=== PATIENT | male | born 1955 | race Two or more races ===

== ENCOUNTER → 2020-04-12 | Outpatient (CLI) | payer MEDICAID ==
[2020-04-12 14:30] LABS: Urine WBC None Seen /hpf (0 - 3)
[2020-04-12 15:50] LABS: Basophils # (auto) 0 10 ^3/uL (0-0.2); Basophils % (auto) 0.5 % (0.0-2.0); Eosinophils # (auto) 0.2 10 ^3/uL (0-0.8); Hematocrit 46.4 % (41.0-53.0); Hemoglobin 15.6 g/dL (13.5-17.5); Lymphocytes # (auto) 1.3 10 ^3/uL (0.4-5.4); Lymphocytes % (auto) 23.1 % (10.0-50.0); Mean Corpuscular Hemoglobin 31.3 pg (28.0-32.0); Mean Corpuscular Hgb Conc. 33.6 g/dL (32.0-36.0); Mean Corpuscular Volume 93.2 fL (80.0-100.0); Monocytes # (auto) 0.7 10 ^3/uL (0-1.3); Monocytes % (auto) 11.9 % (0.0-12.0); Neutrophils # (auto) 3.4 10 ^3/uL (1.6-8.6); Neutrophils % (auto) 61.5 % (37.0-80.0); Nucleated Red Blood Cells % 0.1 %; Platelet Count (auto) 164 10^3/uL (140-450); Red Blood Cells 4.98 10^6/uL (4.5-5.90); Red Cell Distribution Width 14.3 % (11.8-14.3); White Blood Cell 5.5 10^3/uL (4.4-10.8)
[2020-04-12 15:57] LABS: Albumin 3.6 g/dL (3.4-5.0); Calcium 9.2 mg/dL (8.5-10.1); Potassium 3.2 mmol/L (3.5-5.1)
[2020-04-12 16:01] LABS: BUN/Creatinine Ratio 4.7; Bilirubin, Total 0.4 mg/dL (0.2-1.0); Total Protein 7.6 g/dL (6.4-8.2)
[2020-04-12 16:08] LABS: Folate (Folic Acid) 8.65 ng/mL (5.38-24); Prostate Specific Antigen 0.56 ng/mL (0.0-4.0)
[2020-04-12 16:37] LABS: Urine Bacteria NONE SEEN /hpf (None Seen); Urine Blood Negative /uL (Negative); Urine Specific Gravity 1.007 (1.001-1.035)
== END | disposition home or self-care (01) ==
LOC: LAB 14:13
PROVIDERS: ATTEND Internal Medicine
DX: Z12.5 Encounter for screening for malignant neoplasm of prostate (principal); I10 Essential (primary) hypertension; E11.9 Type 2 diabetes mellitus without complications; E78.5 Hyperlipidemia, unspecified
CPT/HCPCS: 36415; 80053; 80061; 81001; 82607; 82746; 83036; 84153; 84443; 85025

== ENCOUNTER 2020-06-03 15:05 | Emergency (ER) | payer MEDICAID ==
[~2020-06-03] VITALS: Ht 167.6 cm; Wt 83.9 kg
[2020-06-03 15:44] LABS: Basophils # (auto) 0 10 ^3/uL (0-0.2); Basophils % (auto) 0.3 % (0.0-2.0); Eosinophils # (auto) 0.2 10 ^3/uL (0-0.8); Eosinophils % (auto) 1.9 % (0.0-7.0); Hematocrit 40.8 % (41.0-53.0); Hemoglobin 14.2 g/dL (13.5-17.5); Lymphocytes # (auto) 1.9 10 ^3/uL (0.4-5.4); Lymphocytes % (auto) 17.6 % (10.0-50.0); Mean Corpuscular Hemoglobin 32.1 pg (28.0-32.0); Mean Corpuscular Hgb Conc. 34.8 g/dL (32.0-36.0); Mean Corpuscular Volume 92.3 fL (80.0-100.0); Monocytes # (auto) 0.8 10 ^3/uL (0-1.3); Monocytes % (auto) 7.2 % (0.0-12.0); Neutrophils # (auto) 7.8 10 ^3/uL (1.6-8.6); Platelet Count (auto) 200 10^3/uL (140-450); Red Blood Cells 4.42 10^6/uL (4.5-5.90); Red Cell Distribution Width 14.7 % (11.8-14.3); White Blood Cell 10.7 10^3/uL (4.4-10.8)
[2020-06-03 16:01] LABS: Albumin 3.9 g/dL (3.4-5.0); Calcium 8.8 mg/dL (8.5-10.1)
[2020-06-03 16:04] LABS: BUN/Creatinine Ratio 10.4; Bilirubin, Total 0.6 mg/dL (0.2-1.0); Total Protein 7.5 g/dL (6.4-8.2)
[2020-06-03 16:15] LABS: Potassium 2.9 mmol/L (3.5-5.1)
[2020-06-03] MEDS ORDERED: POTASSIUM EFFERVESENT TAB 25 MEQ PO ONE (16:15)
[2020-06-03 17:48] VITALS: BP 132/78
[2020-06-03] MEDS ORDERED: IBUPROFEN 800 MG TAB PO ONE (18:00)
== END 2020-06-03 17:34 | disposition left against medical advice (07) ==
LOC: ER 15:05
DX: M25.562 Pain in left knee (principal); M25.561 Pain in right knee; M51.37 Other intervertebral disc degeneration, lumbosacral region; E87.6 Hypokalemia; I10 Essential (primary) hypertension; Z88.6 Allergy status to analgesic agent
CPT/HCPCS: 36415; 80053; 85025

== ENCOUNTER 2020-06-27 18:27 | Inpatient (IN) | payer MEDICAID ==
[~2020-06-27] VITALS: Ht 167.6 cm; Wt 79.9 kg
[2020-06-27] MEDS ORDERED: SODIUM CHLORIDE 0.9% 500 ML IV ONE (19:45)
[2020-06-27] MEDS ORDERED: CLINDAMYCIN 600MG IV 50 ML IV ONE (19:45)
[2020-06-27 21:13] LABS: Basophils # (auto) 0 10 ^3/uL (0-0.2); Basophils % (auto) 0.4 % (0.0-2.0); Eosinophils # (auto) 0.1 10 ^3/uL (0-0.8); Eosinophils % (auto) 1.1 % (0.0-7.0); Hematocrit 42.8 % (41.0-53.0); Hemoglobin 14.8 g/dL (13.5-17.5); Lymphocytes # (auto) 2.3 10 ^3/uL (0.4-5.4); Lymphocytes % (auto) 17.9 % (10.0-50.0); Mean Corpuscular Hemoglobin 31.9 pg (28.0-32.0); Mean Corpuscular Hgb Conc. 34.5 g/dL (32.0-36.0); Mean Corpuscular Volume 92.5 fL (80.0-100.0); Monocytes # (auto) 0.8 10 ^3/uL (0-1.3); Monocytes % (auto) 6.7 % (0.0-12.0); Neutrophils # (auto) 9.4 10 ^3/uL (1.6-8.6); Neutrophils % (auto) 73.9 % (37.0-80.0); Platelet Count (auto) 285 10^3/uL (140-450); Red Blood Cells 4.62 10^6/uL (4.5-5.90); Red Cell Distribution Width 14.7 % (11.8-14.3); White Blood Cell 12.6 10^3/uL (4.4-10.8)
[2020-06-27 21:36] LABS: Albumin 4.1 g/dL (3.4-5.0); Potassium 3.5 mmol/L (3.5-5.1)
[2020-06-27 21:38] LABS: Bilirubin, Total 0.6 mg/dL (0.2-1.0); Total Protein 7.8 g/dL (6.4-8.2)
[2020-06-28] MEDS ORDERED: DOCUSATE SOD 100 MG CAP PO PRN (00:30)
[2020-06-28] MEDS ORDERED: ACETAMINOPHEN 325 MG TAB PO PRN (00:30)
[2020-06-28] MEDS ORDERED: ONDANSETRON HCL 4 MG/2 ML VIAL IV PRN (00:30)
[2020-06-28] MEDS ORDERED: NITROGLYCERIN 0.4 MG SL TAB SL PRN (00:30)
[2020-06-28] MEDS ORDERED: MORPHINE SULF INJ 2 MG/ML SYRINGE 1ML IV PRN (00:30)
[2020-06-28] MEDS ORDERED: SODIUM CHLORIDE 0.9% 1,000 ML IV ONE (00:45)
[2020-06-28] MEDS ORDERED: DEXTROSE (50%) 50ML SYRG IV PRN (00:45)
[2020-06-28] MEDS ORDERED: ALBUTEROL SULF 2.5 MG/0.5ML(0.5%) NEB SOLN NEB PRN (00:45)
[2020-06-28] MEDS: HYDROcodone-ACET 5/325MG TAB PO PRN ×3 (01:48→13:33)
[2020-06-28 05:00] VITALS: BP 147/84
--- NOTE | 2020-06-28 05:25 | NUR ---
MS admit from [facility] admitted to tele/MS after SBAR received. Patient oriented to Kelby Larose, primary RN, unit, room, bed, and unit policies regarding patient care and visiting hours. Patient weighed by bedscale and encouraged to call if they need something. All questions and concerns addressed, patient verbalized understanding. Note:
--- NOTE | 2020-06-28 05:26 | NUR ---
WOUND PICTURE TAKEN
[2020-06-28] MEDS: SODIUM CHLOR 0.9% PF (SALINE LOCK) 10ML VIAL/SYR IV SCH ×2 (05:56→14:43)
[2020-06-28] MEDS: ceFAZolin 1GM/50ML 50 ML IV SCH ×2 (05:56→14:43)
[2020-06-28] MEDS ORDERED: CEFAZOLIN IV SCH (06:00)
[2020-06-28] MEDS ORDERED: [UNRECOGNIZED DRUG - OTHER] IV SCH (06:00)
--- NOTE | 2020-06-28 06:00 | NUR ---
PATIENT WALKED TO BATHROOM WITH CRUTCHES WITH ASSIST, HAD BM. NO S/S OF DISTRESS NOTED. CONTINUE TO MONITOR.
[2020-06-28] MEDS ORDERED: POM PO (06:15)
[2020-06-28] MEDS ORDERED: ROPI6TAB PO (06:15)
[2020-06-28] MEDS ORDERED: METF-370 PO (06:15)
[2020-06-28] MEDS ORDERED: GABA100C9 PO (06:15)
[2020-06-28] MEDS ORDERED: ATOR80TA PO (06:15)
[2020-06-28] MEDS ORDERED: [UNRECOGNIZED DRUG - CODE] PO (06:15)
[2020-06-28] MEDS ORDERED: LISI-646 PO (06:15)
[2020-06-28] MEDS ORDERED: TRAZ50TA2 PO (06:15)
[2020-06-28] MEDS ORDERED: OMEP20TA PO (06:15)
[2020-06-28] MEDS ORDERED: TRAZ-181 PO (06:15)
[2020-06-28] MEDS ORDERED: GINK60CA PO (06:15)
[2020-06-28] MEDS: ACCU-CHEK COMFORT CURVE STRIP VI SCH ×3 (06:15→17:04)
[2020-06-28] MEDS ORDERED: BUSP30TA11 PO (06:15)
[2020-06-28] MEDS ORDERED: DULO20CA PO (06:15)
[2020-06-28] MEDS ORDERED: TIOTCAP IN (06:15)
[2020-06-28] MEDS ORDERED: VALE250C2 PO (06:15)
[2020-06-28] MEDS: InsuLIN REG 1unit/0.01ml Soln (100units/ml) SC SCH ×3 (06:15→17:00)
--- NOTE | 2020-06-28 06:16 | NUR ---
ACCU-CHECK, BS 117. NO COVERAGE. CONTINUE TO MONITOR.
[2020-06-28 09:00] VITALS: BP 137/64
[2020-06-28] MEDS ORDERED: ENOXAPARIN SOD 40 MG/0.4 ML SYRINGE SC SCH (10:00)
[2020-06-28] MEDS ORDERED: FAMOTIDINE 20 MG TAB PO SCH (10:00)
[2020-06-28] MEDS ORDERED: MULTIPLE VITAMIN TAB PO SCH (10:00)
[2020-06-28] MEDS ORDERED: ZINC SULFATE 220mg CAP or TAB PO SCH (10:00)
[2020-06-28] MEDS ORDERED: DULoxetine HCL 30 MG CAP PO SCH (10:00)
[2020-06-28] MEDS ORDERED: ASCORBIC ACID 500 MG TAB PO SCH (10:00)
[2020-06-28 12:10] LABS: Basophils # (auto) 0 10 ^3/uL (0-0.2); Basophils % (auto) 0.4 % (0.0-2.0); Eosinophils # (auto) 0.1 10 ^3/uL (0-0.8); Eosinophils % (auto) 1.2 % (0.0-7.0); Hematocrit 39.9 % (41.0-53.0); Hemoglobin 13.7 g/dL (13.5-17.5); Lymphocytes # (auto) 1.7 10 ^3/uL (0.4-5.4); Lymphocytes % (auto) 15.7 % (10.0-50.0); Mean Corpuscular Hemoglobin 31.9 pg (28.0-32.0); Mean Corpuscular Hgb Conc. 34.3 g/dL (32.0-36.0); Mean Corpuscular Volume 92.8 fL (80.0-100.0); Monocytes # (auto) 0.7 10 ^3/uL (0-1.3); Monocytes % (auto) 6.8 % (0.0-12.0); Neutrophils # (auto) 8.4 10 ^3/uL (1.6-8.6); Neutrophils % (auto) 75.9 % (37.0-80.0); Nucleated Red Blood Cells % 0.2 %; Platelet Count (auto) 253 10^3/uL (140-450)
--- NOTE | 2020-06-28 12:20 | NUR ---
WOUND CARE NOTE: Wound care in to see patient per wound care request regarding Lt heel wound that are noted on admission. Bedside nurse took photograph of patient's wound upon admission for reference. Patient is 65 years old male with admitting diagnosis of Lt. Foot Cellulitis. Patient is resting in bed in Rm. 297A. He's awake, alert and oriented and oriented. He's in no stated pain at this time however,patient reported that his L foot is painful to touch. Patient ambulates with crutches to avoid pressure on L foot/ankle. Patient is self turning and repositioning and his Stephen score is 18. Patient is seen by Dr. Howard. Patient's L posterior heel/ankle area has 1x3x0.5cm open wound. Wound is dark red/black with black and red edematous periwound, minimal serous drainage noted, no odor noted. Patient reported that a rock fell on his foot, started edema and erythema. Patient denies Diabetes but reported that per MD he is pre-Diabetic. Cleansed L posterior heel/ankle wound with wound cleanser,patted dry with gauze, applied Hydrogel, covered with oil emulsion dressing, padded with layers of 4x4's gauze, wrapped with Kerlix and secured with tape per Dr. Howard's order. Per Dr. Howard he wants to check circulation first and possible wound debridement to his clinic as outpatient depends of result of vascular study. Patient tolerated well, no other wound noted. Bed in low position, call jennings on hand, all safety precautions in placed. No further wound care monitoring needed at this time. RECOMMENDATION: Nursing to continue Daily/PRN dressing change to Lt posterior heel/ankle wound per MD order, redistribute pressure points with pillows, elevate affected extremity on pillows. Addendum: 06/28/20 at 1600 by Haley Fernandez RN Amended: Links added.
[2020-06-28 12:44] LABS: Albumin 3.4 g/dL (3.4-5.0); BUN/Creatinine Ratio 12.5; Calcium 8.6 mg/dL (8.5-10.1); Potassium 3.8 mmol/L (3.5-5.1)
[2020-06-28 12:47] LABS: Bilirubin, Total 0.5 mg/dL (0.2-1.0); Total Protein 6.9 g/dL (6.4-8.2)
[2020-06-28 13:00] VITALS: BP 155/83
--- NOTE | 2020-06-28 15:45 | NUR ---
MD Brandin HAGAN AT BEDSIDE TO DISCUSS POC WITH PATIENT. KATELYNN KEATING ASSISTED WITH TRANSLATION AND THE PATIENT VERBALIZED UNDERSTANDING ABOUT THE PLAN AND AGREED TO TRANSFER TO [facility], HE HAS NO FURTHER QUESTIONS FOR MD AT THIS TIME. HOME MEDICATIONS WERE DISCUSSED, AND CONTINUED.
[2020-06-28] MEDS ORDERED: NICOTINE 14 MG/24HR TOPICAL PATCH TD SCH (16:00)
[2020-06-28] MEDS ORDERED: ROPINIROLE HYDROCHLORIDE 2 MG PO SCH (16:09)
--- NOTE | 2020-06-28 16:27 | NUR ---
Transfer order faxed to [facility].
--- NOTE | 2020-06-28 16:33 | NUR ---
I called [facility] Shredder Operator Courtney Li and left message asking for authorization to transfer patient to [facility] and authorization for transportation.
--- NOTE | 2020-06-28 16:47 | NUR ---
ASSESSMENT: SS consult for unsafe living conditions, board home residence The patient is a 72-year-old female, who is alert but appears to struggle with mental illness. Patient cognitive abilities are not intact. Prior to admission patient was living at a room and board facility. Patient will return to [facility] post discharge. Per Andie patient will return to previous living arrangement post discharge. Patient is ambulatory without walking devices. Patient stated that she feels unsafe at [facility] where patient resides. Per patient daughter Andie, states that her mother frequently move from facility to facility per month due to her mental illness. Patient stated that her daughter Andie is her support system. Discharge Planning: will provide resources for room and board to patient. Patient will resume residence at [facility] post discharge. Addendum: 06/28/20 at 1647 by SUKHJINDER DENT Amended: Links added.
[2020-06-28 16:54] VITALS: BP 165/90
--- NOTE | 2020-06-28 16:56 | NUR ---
Patient will be going to [facility] room 270A, nurse to call report to [phone] extension [phone], Dr. Mccauley is accepting. [facility] authorization number for [facility] is [id number]. I called [facility] and spoke with Soo-provided them with [facility] authorization number [id number] up time set for 1929-patient's primary nurse made aware.
--- NOTE | 2020-06-28 19:02 | NUR ---
Respiratory note: PT RECIEVED ON RA. PT AWAKE AND ALERT. NO RESP DISTRESS NOTED. SPO2 97%, HR 72, RR 18, BS CLEAR T/O. NO PRN TX INDICATED AT THIS TIME. PT AWARE TO CALL FOR PRN TX IF SOB/WHEEZING.
--- NOTE | 2020-06-28 19:32 | NUR ---
[facility] RN RECEIVED REPORT. [facility] PERSONNEL PROVIDED WITH PATIENT TRANSFER PACKET AND DISCHARGE PAPERWORK. PATIENT SIGNED FOR HIS BELONGING LIST WHICH WAS PACKED FOR HIM ALONG WITH HIS MEDICATION FOR WHICH HE SIGNED THE RETURN FORM.
[2020-06-28] MEDS ORDERED: ATORVASTATIN 20 MG TAB PO SCH (22:00)
[2020-06-28] MEDS ORDERED: busPIRone HCL 10 MG TAB PO SCH (22:00)
[2020-06-28] MEDS ORDERED: GABAPENTIN 100 MG CAP PO SCH (22:00)
[2020-06-29] MEDS ORDERED: PANTOPRAZOLE 40 MG TAB PO SCH (10:00)
[2020-06-29] MEDS ORDERED: LISINOPRIL 20 MG TAB PO SCH (10:00)
== END 2020-06-28 17:46 | disposition short-term general hospital (02) | DRG 197 ==
LOC: ER 18:27 → OVERFLOW 18:28 → WEST WING 06-28 04:55
PROVIDERS: ADMIT Nurse Practitioner Family; ATTEND Hospitalist
DX: E11.51 Type 2 diabetes mellitus with diabetic peripheral angiopathy without gangrene (principal); L03.116 Cellulitis of left lower limb; E11.621 Type 2 diabetes mellitus with foot ulcer; E78.5 Hyperlipidemia, unspecified; F17.210 Nicotine dependence, cigarettes, uncomplicated; F41.9 Anxiety disorder, unspecified; F32.9 Major depressive disorder, single episode, unspecified; G25.81 Restless legs syndrome; I10 Essential (primary) hypertension; L97.529 Non-pressure chronic ulcer of other part of left foot with unspecified severity; M20.40 Other hammer toe(s) (acquired), unspecified foot; Z82.49 Family history of ischemic heart disease and other diseases of the circulatory system; Z83.3 Family history of diabetes mellitus; Z88.6 Allergy status to analgesic agent; Z79.4 Long term (current) use of insulin; R70.0 Elevated erythrocyte sedimentation rate
CPT/HCPCS: 36415; 73700; 80053; 82962; 83036; 85025; 85652; 93926; G0378; J0690; J3490

== ENCOUNTER 2021-01-15 15:54 | Emergency (ER) | payer MEDICAID ==
[~2021-01-15] VITALS: Ht 165.1 cm; Wt 83.9 kg
[~2021-01-15 15:54] MED LIST: ATOR80TA PO; BUSP30TA PO; DULO20CA PO; GABA100C9 PO; GINK60CA2 PO; LISI20TA28 PO; METF-370 PO; OMEP20TA PO; POM PO; ROPI6TAB PO; TIOTCAP IN; TRAZ-181 PO; TRAZ50TA2 PO; VALE250C2 PO; [UNRECOGNIZED DRUG - CODE] PO
[2021-01-15 16:39] VITALS: BP 181/89
[2021-01-15] MEDS ORDERED: ACETAMINOPHEN 500 MG TAB PO ONE (17:30)
== END 2021-01-15 17:44 | disposition home or self-care (01) ==
LOC: ER 15:54
DX: L97.329 Non-pressure chronic ulcer of left ankle with unspecified severity (principal); I10 Essential (primary) hypertension; E78.5 Hyperlipidemia, unspecified; Z48.01 Encounter for change or removal of surgical wound dressing
CPT/HCPCS: 73630

== ENCOUNTER 2021-01-26 01:28 | Inpatient (IN) | payer MEDICAID ==
[~2021-01-26] VITALS: Ht 167.6 cm; Wt 80.0 kg
[2021-01-26] MEDS ORDERED: SODIUM CHLORIDE 0.9% 1,000 ML IV ONE (10:30)
[2021-01-26] MEDS ORDERED: SODIUM CHLORIDE 0.9% 500 ML IV ONE (10:30)
[2021-01-26] MEDS ORDERED: cefTRIAXone 1GM/50ML D5W 50 ML IV ONE (10:30)
[2021-01-26 11:02] LABS: Basophils # (auto) 0.1 10 ^3/uL (0-0.2); Basophils % (auto) 0.6 % (0.0-2.0); Eosinophils # (auto) 0.1 10 ^3/uL (0-0.8); Eosinophils % (auto) 0.6 % (0.0-7.0); Hematocrit 40.8 % (41.0-53.0); Hemoglobin 14.1 g/dL (13.5-17.5); Lymphocytes # (auto) 1.3 10 ^3/uL (0.4-5.4); Lymphocytes % (auto) 15.3 % (10.0-50.0); Mean Corpuscular Hgb Conc. 34.6 g/dL (32.0-36.0); Mean Corpuscular Volume 92.5 fL (80.0-100.0); Monocytes # (auto) 0.4 10 ^3/uL (0-1.3); Monocytes % (auto) 4.9 % (0.0-12.0); Neutrophils # (auto) 6.9 10 ^3/uL (1.6-8.6); Neutrophils % (auto) 78.6 % (37.0-80.0); Nucleated Red Blood Cells % 0.1 %; Platelet Count (auto) 297 10^3/uL (140-450); Red Blood Cells 4.41 10^6/uL (4.5-5.90); Red Cell Distribution Width 15.7 % (11.8-14.3); White Blood Cell 8.7 10^3/uL (4.4-10.8)
[2021-01-26 11:11] LABS: Urine WBC None Seen /hpf (0 - 3)
[2021-01-26 11:17] LABS: INR 1.18 (0.9-1.15); Partial Thromboplastin Time 37.3 sec (23.0-31.2)
[2021-01-26 11:19] LABS: Albumin 3.8 g/dL (3.4-5.0); Calcium 9.2 mg/dL (8.5-10.1); Magnesium 2.4 mg/dL (1.6-2.6); Potassium 3.4 mmol/L (3.5-5.1)
[2021-01-26 11:22] LABS: BUN/Creatinine Ratio 9.5; Bilirubin, Total 0.5 mg/dL (0.2-1.0); Total Protein 7.7 g/dL (6.4-8.2)
[2021-01-26 11:50] LABS: Urine Bacteria FEW /hpf (None Seen); Urine Blood Negative /uL (Negative); Urine Specific Gravity 1.003 (1.001-1.035)
[2021-01-26] MEDS ORDERED: MORPHINE SULF INJ 2 MG/ML SYRINGE 1ML IV PRN (13:45)
[2021-01-26] MEDS ORDERED: traZODone HCL 50 MG TAB PO SCH (13:45)
[2021-01-26] MEDS ORDERED: ACETAMINOPHEN 500 MG TAB PO PRN (13:45)
[2021-01-26] MEDS ORDERED: NITROGLYCERIN 0.4 MG SL TAB SL PRN (13:45)
[2021-01-26] MEDS ORDERED: PROMETHAZINE HCL 25 MG/ML 1ML IV PRN (13:45)
[2021-01-26 16:29] VITALS: BP 124/72
[2021-01-26 16:49] VITALS: BP 124/72
[2021-01-26] MEDS: MORPHINE SULF INJ 2 MG/ML SYRINGE 1ML IV PRN (17:40)
[2021-01-26] MEDS: ATORVASTATIN 20 MG TAB PO SCH (17:51)
[2021-01-26] MEDS: PIPERACILLIN-TAZOB 3.375GM 100 ML IV SCH ×2 (17:51→23:33)
[2021-01-26 20:00] VITALS: BP 123/66
[2021-01-26] MEDS: FAMOTIDINE 20 MG TAB PO SCH (21:30)
[2021-01-26] MEDS: GABAPENTIN 300 MG CAP PO SCH (21:30)
[2021-01-26] MEDS: HYDROcodone-ACET 5/325MG TAB PO PRN (21:31)
[2021-01-26] MEDS: BUSPIRONE HCL PO SCH (21:32)
[2021-01-26 22:00] VITALS: BP 123/66
[2021-01-26] MEDS ORDERED: [UNRECOGNIZED DRUG - REMARK] PO SCH (22:00)
[2021-01-26] MEDS: SENNA 8.6 MG TAB PO SCH (22:19)
[2021-01-27 05:00] VITALS: BP 121/62
[2021-01-27] MEDS: PIPERACILLIN-TAZOB 3.375GM 100 ML IV SCH ×3 (05:45→18:00)
[2021-01-27] MEDS: LISINOPRIL 20 MG TAB PO SCH (08:28)
[2021-01-27] MEDS: DULoxetine HCL 30 MG CAP PO SCH (08:28)
[2021-01-27] MEDS: FAMOTIDINE 20 MG TAB PO SCH ×2 (08:28→22:00)
[2021-01-27 08:43] LABS: Basophils # (auto) 0 10 ^3/uL (0-0.2); Basophils % (auto) 0.4 % (0.0-2.0); Eosinophils # (auto) 0.1 10 ^3/uL (0-0.8); Eosinophils % (auto) 0.6 % (0.0-7.0); Hematocrit 39.6 % (41.0-53.0); Hemoglobin 13.7 g/dL (13.5-17.5); Lymphocytes # (auto) 1.3 10 ^3/uL (0.4-5.4); Lymphocytes % (auto) 14.9 % (10.0-50.0); Mean Corpuscular Hgb Conc. 34.5 g/dL (32.0-36.0); Mean Corpuscular Volume 92.5 fL (80.0-100.0); Monocytes # (auto) 0.7 10 ^3/uL (0-1.3); Monocytes % (auto) 7.8 % (0.0-12.0); Neutrophils # (auto) 6.4 10 ^3/uL (1.6-8.6); Neutrophils % (auto) 76.3 % (37.0-80.0); Platelet Count (auto) 283 10^3/uL (140-450); Red Blood Cells 4.28 10^6/uL (4.5-5.90); White Blood Cell 8.4 10^3/uL (4.4-10.8)
[2021-01-27 09:05] LABS: Cholesterol 158 mg/dL (< 200); HDL Cholesterol 44 mg/dL (40-59); LDL Cholesterol 97 mg/dL (< 100); Triglycerides 107 mg/dL (< 150)
[2021-01-27 09:14] VITALS: BP 125/65
[2021-01-27] MEDS ORDERED: SERT50TA19 PO (10:09)
[2021-01-27] MEDS ORDERED: PAR20T GT (10:09)
[2021-01-27] MEDS ORDERED: ACET-1156 PO (10:09)
[2021-01-27 13:00] VITALS: BP 137/69
[2021-01-27] MEDS: MORPHINE SULF INJ 2 MG/ML SYRINGE 1ML IV PRN ×2 (14:02→22:10)
[2021-01-27 16:50] VITALS: BP 112/57
[2021-01-27] MEDS: ATORVASTATIN 20 MG TAB PO SCH (18:00)
[2021-01-27 20:00] VITALS: BP 120/75
[2021-01-27 22:00] VITALS: BP 120/75
[2021-01-27] MEDS: GABAPENTIN 300 MG CAP PO SCH (22:00)
[2021-01-27] MEDS: SENNA 8.6 MG TAB PO SCH (22:00)
[2021-01-27] MEDS: BUSPIRONE HCL PO SCH (22:00)
[2021-01-28 05:00] VITALS: BP 132/78
[2021-01-28] MEDS: PIPERACILLIN-TAZOB 3.375GM 100 ML IV SCH ×4 (05:40→17:59)
[2021-01-28 08:00] VITALS: BP 156/83
[2021-01-28 09:00] VITALS: BP 156/83
[2021-01-28] MEDS: LISINOPRIL 20 MG TAB PO SCH (09:07)
[2021-01-28] MEDS: DULoxetine HCL 30 MG CAP PO SCH (09:08)
[2021-01-28] MEDS: FAMOTIDINE 20 MG TAB PO SCH ×2 (09:08→22:00)
[2021-01-28 13:00] VITALS: BP 127/70
[2021-01-28] MEDS: HYDROcodone-ACET 5/325MG TAB PO PRN ×2 (15:24→19:30)
[2021-01-28 16:52] VITALS: BP 134/79
[2021-01-28 16:57] LABS: Basophils # (auto) 0 10 ^3/uL (0-0.2); Basophils % (auto) 0.3 % (0.0-2.0); Eosinophils # (auto) 0.1 10 ^3/uL (0-0.8); Eosinophils % (auto) 1.4 % (0.0-7.0); Hematocrit 38.3 % (41.0-53.0); Hemoglobin 13.5 g/dL (13.5-17.5); Lymphocytes # (auto) 1.5 10 ^3/uL (0.4-5.4); Lymphocytes % (auto) 23.4 % (10.0-50.0); Mean Corpuscular Hemoglobin 32.4 pg (28.0-32.0); Mean Corpuscular Hgb Conc. 35.2 g/dL (32.0-36.0); Monocytes # (auto) 0.6 10 ^3/uL (0-1.3); Monocytes % (auto) 9.9 % (0.0-12.0); Neutrophils # (auto) 4.1 10 ^3/uL (1.6-8.6); Nucleated Red Blood Cells % 0.1 %; Platelet Count (auto) 296 10^3/uL (140-450); Red Blood Cells 4.17 10^6/uL (4.5-5.90); Red Cell Distribution Width 15.9 % (11.8-14.3); White Blood Cell 6.3 10^3/uL (4.4-10.8)
[2021-01-28 17:10] LABS: Albumin 3.7 g/dL (3.4-5.0); BUN/Creatinine Ratio 10.1
[2021-01-28 17:13] LABS: Bilirubin, Total 0.4 mg/dL (0.2-1.0); Total Protein 7.4 g/dL (6.4-8.2)
[2021-01-28] MEDS: ATORVASTATIN 20 MG TAB PO SCH (18:00)
[2021-01-28 21:42] VITALS: BP 154/81
[2021-01-28] MEDS: GABAPENTIN 300 MG CAP PO SCH (22:00)
[2021-01-28] MEDS: BUSPIRONE HCL PO SCH (22:00)
[2021-01-28] MEDS: MORPHINE SULF INJ 2 MG/ML SYRINGE 1ML IV PRN (22:40)
[2021-01-29] VITALS (7 sets, daily range): BP systolic 93–164; BP diastolic 56–106
[2021-01-29] MEDS: HYDROcodone-ACET 5/325MG TAB PO PRN ×2 (04:45→17:57)
[2021-01-29] MEDS: PIPERACILLIN-TAZOB 3.375GM 100 ML IV SCH ×4 (06:00→17:44)
[2021-01-29] MEDS ORDERED: ROPIVACAINE 0.5% (5MG/ML) 20ML AMPULE IJ ONE (09:38)
[2021-01-29] MEDS ORDERED: ceFAZolin 1GM/50ML 100 ML IV ONE (09:39)
[2021-01-29] MEDS ORDERED: MORPHINE SULFATE 4 MG/ML SYR/VIAL IV PRN (09:45)
[2021-01-29] MEDS ORDERED: ACCU-CHEK COMFORT CURVE STRIP VI ONE (09:45)
[2021-01-29] MEDS ORDERED: PROPOFOL 10 MG/ML 20 ML IV ONE (09:53)
[2021-01-29] MEDS ORDERED: SODIUM CHLORIDE LOCK 10 ML ONE (09:53)
[2021-01-29] MEDS ORDERED: MIDAZOLAM HCL 1MG/1ML-2 ML VIAL ONE (09:53)
[2021-01-29] MEDS ORDERED: fentaNYL CITRATE 100 MCG/2 ML VL ONE (09:53)
[2021-01-29] MEDS ORDERED: ONDANSETRON HCL 4 MG/2 ML VIAL ONE (09:53)
[2021-01-29] MEDS ORDERED: ceFAZolin 1GM VL ONE (10:45)
[2021-01-29] MEDS: HYDROmorphone HCL 2 MG/ML VL IV PRN ×2 (11:10→11:20)
[2021-01-29] MEDS: FAMOTIDINE 20 MG TAB PO SCH ×2 (11:52→22:00)
[2021-01-29] MEDS: DULoxetine HCL 30 MG CAP PO SCH (11:52)
[2021-01-29] MEDS: LISINOPRIL 20 MG TAB PO SCH (11:52)
[2021-01-29] MEDS: MORPHINE SULF INJ 2 MG/ML SYRINGE 1ML IV PRN ×2 (16:17→23:30)
[2021-01-29] MEDS: ATORVASTATIN 20 MG TAB PO SCH (17:44)
[2021-01-29] MEDS ORDERED: ERTAPENEM SOD INJ 1 GM in SODIUM CHL 0.9% 50 ML IV ONE (19:45)
[2021-01-29] MEDS: NICOTINE 21MG/24 HR TOPICAL PATCH TD SCH (20:00)
[2021-01-29] MEDS: GABAPENTIN 300 MG CAP PO SCH (22:00)
[2021-01-29] MEDS: SENNA 8.6 MG TAB PO SCH (22:00)
[2021-01-29] MEDS: BUSPIRONE HCL PO SCH (22:00)
[2021-01-30] MEDS: HYDROcodone-ACET 5/325MG TAB PO PRN ×2 (04:00→12:45)
[2021-01-30 05:00] VITALS: BP 148/86
[2021-01-30 05:33] LABS: Basophils # (auto) 0 10 ^3/uL (0-0.2); Basophils % (auto) 0.3 % (0.0-2.0); Eosinophils # (auto) 0.1 10 ^3/uL (0-0.8); Eosinophils % (auto) 1.6 % (0.0-7.0); Hematocrit 37.6 % (41.0-53.0); Lymphocytes # (auto) 1.4 10 ^3/uL (0.4-5.4); Lymphocytes % (auto) 18.6 % (10.0-50.0); Mean Corpuscular Hemoglobin 32.4 pg (28.0-32.0); Mean Corpuscular Hgb Conc. 34.7 g/dL (32.0-36.0); Mean Corpuscular Volume 93.2 fL (80.0-100.0); Monocytes # (auto) 0.5 10 ^3/uL (0-1.3); Monocytes % (auto) 6.9 % (0.0-12.0); Neutrophils # (auto) 5.4 10 ^3/uL (1.6-8.6); Neutrophils % (auto) 72.6 % (37.0-80.0); Platelet Count (auto) 278 10^3/uL (140-450); Red Blood Cells 4.03 10^6/uL (4.5-5.90); White Blood Cell 7.5 10^3/uL (4.4-10.8)
[2021-01-30 05:46] LABS: INR 1.07 (0.9-1.15); Partial Thromboplastin Time 33.6 sec (23.0-31.2)
[2021-01-30 05:57] LABS: Potassium 4.2 mmol/L (3.5-5.1)
[2021-01-30 06:03] LABS: BUN/Creatinine Ratio 8.8
[2021-01-30 08:32] VITALS: BP 122/71
[2021-01-30] MEDS ORDERED: ERTAPENEM SOD INJ 1 GM in SODIUM CHL 0.9% 50 ML IV SCH (10:00)
[2021-01-30] MEDS: FAMOTIDINE 20 MG TAB PO SCH (10:05)
[2021-01-30] MEDS: DULoxetine HCL 30 MG CAP PO SCH (10:05)
[2021-01-30] MEDS: LISINOPRIL 20 MG TAB PO SCH (10:06)
[2021-01-30] MEDS: NICOTINE 21MG/24 HR TOPICAL PATCH TD SCH (10:06)
[2021-01-30] MEDS: MORPHINE SULF INJ 2 MG/ML SYRINGE 1ML IV PRN ×2 (10:31→17:19)
[2021-01-30 10:32] VITALS: BP 122/71
[2021-01-30 12:44] VITALS: BP 131/68
[2021-01-30] MEDS: ATORVASTATIN 20 MG TAB PO SCH (18:02)
== END 2021-01-30 18:30 | disposition home health service (06) | DRG 361 ==
LOC: ER 01:28 → TELE 13:36 → WEST WING 15:23
PROVIDERS: ADMIT Hospitalist; ATTEND Hospitalist
PROC: 0LBP0ZZ Excision of Left Lower Leg Tendon, Open Approach (ICD-10-PCS; 2021-01-29)
PROC: 0HRNXK3 Replacement of Left Foot Skin with Nonautologous Tissue Substitute, Full Thickness, External Approach (ICD-10-PCS; principal; 2021-01-29 10:24)
PROC: 05HA33Z Insertion of Infusion Device into Left Brachial Vein, Percutaneous Approach (ICD-10-PCS; 2021-01-30)
PROC: B54NZZA Ultrasonography of Left Upper Extremity Veins, Guidance (ICD-10-PCS; 2021-01-30)
DX: E11.622 Type 2 diabetes mellitus with other skin ulcer (principal); L97.329 Non-pressure chronic ulcer of left ankle with unspecified severity; L97.319 Non-pressure chronic ulcer of right ankle with unspecified severity; E11.40 Type 2 diabetes mellitus with diabetic neuropathy, unspecified; S91.002A Unspecified open wound, left ankle, initial encounter; L03.116 Cellulitis of left lower limb; I10 Essential (primary) hypertension; E78.5 Hyperlipidemia, unspecified; F17.210 Nicotine dependence, cigarettes, uncomplicated; J44.9 Chronic obstructive pulmonary disease, unspecified; B96.20 Unspecified Escherichia coli [E. coli] as the cause of diseases classified elsewhere; Z16.12 Extended spectrum beta lactamase (ESBL) resistance; X58.XXXA Exposure to other specified factors, initial encounter; F32.9 Major depressive disorder, single episode, unspecified; Z20.822 Contact with and (suspected) exposure to COVID-19; K21.9 Gastro-esophageal reflux disease without esophagitis; M79.18 Myalgia, other site; Z83.3 Family history of diabetes mellitus; Z82.49 Family history of ischemic heart disease and other diseases of the circulatory system; Z88.6 Allergy status to analgesic agent; Y93.89 Activity, other specified; Y92.89 Other specified places as the place of occurrence of the external cause; Y99.8 Other external cause status
CPT/HCPCS: 36415; 71045; 73700; 80048; 80053; 80061; 81001; 83036; 83735; 85025; 85610; 85730; 87070; 87075; 87077; 87186; 87205; 87426; 93005; 93925; 96361; 96365; 96375; 97110; 97116; 97530; G0378; J0690; J0696; J1335; J2250; J2405; J2543; J2704

== ENCOUNTER 2021-01-31 18:49 | Emergency (ER) | payer MEDICAID ==
[~2021-01-31] VITALS: Ht 167.6 cm; Wt 77.1 kg
[~2021-01-31 18:49] MED LIST changes: +ACET-1156 PO; +PAR20T GT; +SERT50TA19 PO
[2021-01-31] MEDS ORDERED: MORPHINE SULFATE 4 MG/ML SYR/VIAL IV ONE (23:15)
[2021-01-31] MEDS ORDERED: ONDANSETRON HCL 4 MG/2 ML VIAL IV ONE (23:15)
[2021-01-31] MEDS ORDERED: VANCOMYCIN 1GM/250ML 250 ML IV ONE (23:15)
[2021-01-31] MEDS ORDERED: PIPERACILLIN-TAZO 4.5GM 100 ML IV ONE (23:15)
[2021-02-01 01:50] LABS: Basophils # (auto) 0 10 ^3/uL (0-0.2); Basophils % (auto) 0.5 % (0.0-2.0); Eosinophils # (auto) 0.1 10 ^3/uL (0-0.8); Eosinophils % (auto) 1.6 % (0.0-7.0); Hemoglobin 14.3 g/dL (13.5-17.5); Lymphocytes # (auto) 1.9 10 ^3/uL (0.4-5.4); Lymphocytes % (auto) 20.8 % (10.0-50.0); Mean Corpuscular Hemoglobin 31.9 pg (28.0-32.0); Mean Corpuscular Hgb Conc. 34.1 g/dL (32.0-36.0); Mean Corpuscular Volume 93.3 fL (80.0-100.0); Monocytes # (auto) 0.6 10 ^3/uL (0-1.3); Monocytes % (auto) 6.9 % (0.0-12.0); Neutrophils # (auto) 6.4 10 ^3/uL (1.6-8.6); Neutrophils % (auto) 70.2 % (37.0-80.0); Platelet Count (auto) 335 10^3/uL (140-450); Red Cell Distribution Width 15.8 % (11.8-14.3); White Blood Cell 9.1 10^3/uL (4.4-10.8)
[2021-02-01 02:02] LABS: BUN/Creatinine Ratio 11.1; Calcium 9.5 mg/dL (8.5-10.1); Potassium 4.2 mmol/L (3.5-5.1)
[2021-02-01] MEDS ORDERED: SODIUM CHLORIDE 0.9% 1,000 ML IV ONE (04:30)
[2021-02-01 09:30] VITALS: BP 120/60
== END 2021-02-01 09:50 | disposition home or self-care (01) ==
LOC: ER 18:49 → EDBD 18:49 → ER 02-01 09:50
DX: L03.116 Cellulitis of left lower limb (principal); J44.9 Chronic obstructive pulmonary disease, unspecified; F32.9 Major depressive disorder, single episode, unspecified; E11.9 Type 2 diabetes mellitus without complications; K21.9 Gastro-esophageal reflux disease without esophagitis; E78.5 Hyperlipidemia, unspecified; I10 Essential (primary) hypertension; F17.210 Nicotine dependence, cigarettes, uncomplicated; Z88.6 Allergy status to analgesic agent; Z79.899 Other long term (current) drug therapy
CPT/HCPCS: 36415; 73630; 80048; 82962; 83605; 85025; 85652; 87040; 96365; 96366; 96367; 96375; 99285; J2270; J2405; J2543; J3370; J7030

== ENCOUNTER 2021-06-21 19:59 | Inpatient (IN) | payer MEDICAID ==
[~2021-06-21] VITALS: Ht 167.6 cm; Wt 100.5 kg
[2021-06-21] MEDS ORDERED: PIPERACILLIN-TAZOB 3.375GM 100 ML IV ONE (20:45)
[2021-06-21] MEDS ORDERED: VANCOMYCIN PER PHARMACY 0 MG IV SCH (20:45)
[2021-06-21] MEDS ORDERED: VANCOMYCIN 1GM/250ML 250 ML IV ONE (21:00)
[2021-06-21 23:31] LABS: Basophils # (auto) 0.1 10 ^3/uL (0-0.2); Basophils % (auto) 0.9 % (0.0-2.0); Eosinophils # (auto) 0.2 10 ^3/uL (0-0.8); Eosinophils % (auto) 3.2 % (0.0-7.0); Hematocrit 43.2 % (41.0-53.0); Hemoglobin 14.7 g/dL (13.5-17.5); Lymphocytes # (auto) 1.4 10 ^3/uL (0.4-5.4); Lymphocytes % (auto) 19.9 % (10.0-50.0); Mean Corpuscular Hemoglobin 31.6 pg (28.0-32.0); Mean Corpuscular Hgb Conc. 33.9 g/dL (32.0-36.0); Mean Corpuscular Volume 93.2 fL (80.0-100.0); Monocytes # (auto) 0.4 10 ^3/uL (0-1.3); Monocytes % (auto) 6.3 % (0.0-12.0); Neutrophils # (auto) 4.7 10 ^3/uL (1.6-8.6); Neutrophils % (auto) 69.7 % (37.0-80.0); Red Blood Cells 4.64 10^6/uL (4.5-5.90); Red Cell Distribution Width 14.4 % (11.8-14.3); White Blood Cell 6.8 10^3/uL (4.4-10.8)
[2021-06-21 23:49] LABS: Albumin 3.8 g/dL (3.4-5.0); Potassium 3.3 mmol/L (3.5-5.1)
[2021-06-21 23:57] LABS: BUN/Creatinine Ratio 13.5; Bilirubin, Total 0.4 mg/dL (0.2-1.0); CRP High Sensitivity 1.3 mg/dL (< 0.3); Total Protein 7.8 g/dL (6.4-8.2)
[2021-06-22] MEDS ORDERED: DOCUSATE SOD 100 MG CAP PO PRN (01:15)
[2021-06-22] MEDS ORDERED: DEXTROSE (50%) 50ML SYRG IV PRN (01:15)
[2021-06-22] MEDS ORDERED: NITROGLYCERIN 0.4 MG SL TAB SL PRN (01:15)
[2021-06-22] MEDS ORDERED: MORPHINE SULFATE INJECTION 2 MG/ML SYRG IV PRN (01:15)
[2021-06-22] MEDS: SODIUM CHLORIDE 0.9% 1,000 ML IV SCH ×3 (02:07→21:15)
[2021-06-22] MEDS: MORPHINE SULFATE 4 MG/ML SYR/VIAL IV PRN ×3 (02:38→14:42)
[2021-06-22] MEDS: ONDANSETRON HCL 4 MG/2 ML VIAL IV PRN (02:38)
[2021-06-22 04:07] LABS: Basophils # (auto) 0 10 ^3/uL (0-0.2); Basophils % (auto) 0.4 % (0.0-2.0); Eosinophils # (auto) 0.2 10 ^3/uL (0-0.8); Eosinophils % (auto) 2.6 % (0.0-7.0); Hematocrit 40.5 % (41.0-53.0); Hemoglobin 13.6 g/dL (13.5-17.5); Lymphocytes # (auto) 1.3 10 ^3/uL (0.4-5.4); Lymphocytes % (auto) 17.9 % (10.0-50.0); Mean Corpuscular Hemoglobin 31.7 pg (28.0-32.0); Mean Corpuscular Hgb Conc. 33.7 g/dL (32.0-36.0); Mean Corpuscular Volume 94.1 fL (80.0-100.0); Monocytes # (auto) 0.5 10 ^3/uL (0-1.3); Monocytes % (auto) 7.3 % (0.0-12.0); Neutrophils # (auto) 5.1 10 ^3/uL (1.6-8.6); Neutrophils % (auto) 71.8 % (37.0-80.0); Red Cell Distribution Width 14.1 % (11.8-14.3); White Blood Cell 7.1 10^3/uL (4.4-10.8)
[2021-06-22 04:34] LABS: BUN/Creatinine Ratio 14.4; Calcium 8.6 mg/dL (8.5-10.1); Potassium 3.3 mmol/L (3.5-5.1)
[2021-06-22 05:51] VITALS: BP 117/59
[2021-06-22 06:00] VITALS: BP 117/59
[2021-06-22] MEDS: InsuLIN REG 1unit/0.01ml Soln (100units/ml) SC SCH ×4 (07:00→21:55)
[2021-06-22] MEDS: ACCU-CHEK COMFORT CURVE STRIP VI SCH ×4 (07:40→21:55)
[2021-06-22] MEDS ORDERED: CEFEPIME 2 GM in SODIUM CHL 0.9% 50 ML IV SCH (10:00)
[2021-06-22] MEDS: ENOXAPARIN SOD 40 MG/0.4 ML SYRINGE SC SCH (10:25)
[2021-06-22] MEDS ORDERED: MEROPENEM 1GM IVPB 100 ML IV ONE (11:30)
[2021-06-22 13:00] VITALS: BP 159/91
[2021-06-22] MEDS ORDERED: IBUP800T27 PO (13:58)
[2021-06-22] MEDS ORDERED: HYDRX10T PO (13:59)
[2021-06-22] MEDS ORDERED: POM IN (14:10)
[2021-06-22 17:00] VITALS: BP 152/91
[2021-06-22] MEDS: VANCOMYCIN 1GM/250ML 250 ML IV SCH (17:54)
[2021-06-22 20:00] VITALS: BP 150/85
[2021-06-22] MEDS: MEROPENEM 1GM IVPB 100 ML IV SCH (20:20)
[2021-06-22 22:00] VITALS: BP 157/85
[2021-06-22] MEDS ORDERED: TEMAZEPAM 15 MG CAP PO ONE (23:30)
[2021-06-23] MEDS: VANCOMYCIN 1GM/250ML 250 ML IV SCH ×2 (01:58→16:26)
[2021-06-23] MEDS: MEROPENEM 1GM IVPB 100 ML IV SCH ×3 (03:55→20:16)
[2021-06-23] MEDS: MORPHINE SULFATE 4 MG/ML SYR/VIAL IV PRN ×3 (04:08→21:16)
[2021-06-23 05:00] VITALS: BP 131/74
[2021-06-23] MEDS: InsuLIN REG 1unit/0.01ml Soln (100units/ml) SC SCH ×4 (06:36→22:00)
[2021-06-23] MEDS: ACCU-CHEK COMFORT CURVE STRIP VI SCH ×4 (06:36→22:02)
[2021-06-23 07:55] LABS: Basophils # (auto) 0 10 ^3/uL (0-0.2); Basophils % (auto) 0.4 % (0.0-2.0); Eosinophils # (auto) 0.2 10 ^3/uL (0-0.8); Eosinophils % (auto) 2.8 % (0.0-7.0); Hematocrit 41.3 % (41.0-53.0); Hemoglobin 13.8 g/dL (13.5-17.5); Lymphocytes # (auto) 1.2 10 ^3/uL (0.4-5.4); Lymphocytes % (auto) 18.6 % (10.0-50.0); Mean Corpuscular Hemoglobin 31.6 pg (28.0-32.0); Mean Corpuscular Hgb Conc. 33.5 g/dL (32.0-36.0); Mean Corpuscular Volume 94.6 fL (80.0-100.0); Monocytes # (auto) 0.5 10 ^3/uL (0-1.3); Monocytes % (auto) 8.4 % (0.0-12.0); Neutrophils # (auto) 4.6 10 ^3/uL (1.6-8.6); Neutrophils % (auto) 69.8 % (37.0-80.0); Red Blood Cells 4.36 10^6/uL (4.5-5.90); Red Cell Distribution Width 14.2 % (11.8-14.3); White Blood Cell 6.6 10^3/uL (4.4-10.8)
[2021-06-23 08:15] LABS: Potassium 3.5 mmol/L (3.5-5.1)
[2021-06-23 08:17] LABS: BUN/Creatinine Ratio 11.7
[2021-06-23 09:00] VITALS: BP 125/73
[2021-06-23 09:28] LABS: INR 1.03 (0.9-1.15)
[2021-06-23] MEDS: ENOXAPARIN SOD 40 MG/0.4 ML SYRINGE SC SCH (10:00)
[2021-06-23] MEDS: SODIUM CHLORIDE 0.9% 1,000 ML IV SCH ×3 (12:26→18:45)
[2021-06-23 13:00] VITALS: BP 144/69
[2021-06-23 17:00] VITALS: BP 140/90
[2021-06-23 20:00] VITALS: BP 141/59
[2021-06-23] MEDS: ATORVASTATIN 20 MG TAB PO SCH (22:03)
[2021-06-23 22:25] VITALS: BP 141/59
[2021-06-24] MEDS: MORPHINE SULFATE 4 MG/ML SYR/VIAL IV PRN ×4 (01:55→20:27)
[2021-06-24] MEDS: VANCOMYCIN 1GM/250ML 250 ML IV SCH ×2 (01:55→14:24)
[2021-06-24] MEDS: SODIUM CHLORIDE 0.9% 1,000 ML IV SCH ×3 (03:15→21:16)
[2021-06-24] MEDS: MEROPENEM 1GM IVPB 100 ML IV SCH ×3 (04:02→21:16)
[2021-06-24 05:25] VITALS: BP 150/80
[2021-06-24] MEDS: ACCU-CHEK COMFORT CURVE STRIP VI SCH ×4 (06:35→21:16)
[2021-06-24] MEDS: InsuLIN REG 1unit/0.01ml Soln (100units/ml) SC SCH ×4 (06:35→21:26)
[2021-06-24 06:55] LABS: Basophils # (auto) 0 10 ^3/uL (0-0.2); Basophils % (auto) 0.6 % (0.0-2.0); Eosinophils # (auto) 0.1 10 ^3/uL (0-0.8); Eosinophils % (auto) 2.4 % (0.0-7.0); Hematocrit 39.8 % (41.0-53.0); Hemoglobin 13.9 g/dL (13.5-17.5); Lymphocytes # (auto) 1.3 10 ^3/uL (0.4-5.4); Lymphocytes % (auto) 21.6 % (10.0-50.0); Mean Corpuscular Hemoglobin 32.9 pg (28.0-32.0); Mean Corpuscular Hgb Conc. 34.9 g/dL (32.0-36.0); Mean Corpuscular Volume 94.2 fL (80.0-100.0); Monocytes # (auto) 0.6 10 ^3/uL (0-1.3); Monocytes % (auto) 9.4 % (0.0-12.0); Neutrophils # (auto) 4.1 10 ^3/uL (1.6-8.6); Nucleated Red Blood Cells % 0.1 %; Red Blood Cells 4.23 10^6/uL (4.5-5.90); Red Cell Distribution Width 13.8 % (11.8-14.3); White Blood Cell 6.1 10^3/uL (4.4-10.8)
[2021-06-24 07:13] LABS: BUN/Creatinine Ratio 13.9; Calcium 8.8 mg/dL (8.5-10.1); Potassium 3.4 mmol/L (3.5-5.1)
[2021-06-24 09:00] VITALS: BP 151/75
[2021-06-24] MEDS ORDERED: IODIXANOL 320MG/ML 100ML BTL IV ONE ×2 (09:11→10:08)
[2021-06-24] MEDS ORDERED: LIDOCAINE 2%HCL (LOCAL ANESTH.) INJ 20ML MDV ONE ×2 (09:11→10:08)
[2021-06-24] MEDS ORDERED: ANGIOMAX 250 MG VIAL IV ONE (09:18)
[2021-06-24] MEDS ORDERED: SODIUM CHL 0.9% 0 ML ONE (09:20)
[2021-06-24] MEDS ORDERED: MIDAZOLAM HCL 2MG/2ML 2ml VIAL (1mg/ml) ONE (09:20)
[2021-06-24] MEDS ORDERED: fentaNYL CITRATE 100 MCG/2 ML VL ONE (09:20)
[2021-06-24] MEDS ORDERED: diphenhdrAMINE HCL 50 MG/1 ML VL ONE (10:18)
[2021-06-24] MEDS: PANTOPRAZOLE 40 MG TAB PO SCH (10:31)
[2021-06-24] MEDS: LISINOPRIL 20 MG TAB PO SCH (10:31)
[2021-06-24] MEDS: ENOXAPARIN SOD 40 MG/0.4 ML SYRINGE SC SCH (10:32)
[2021-06-24] MEDS ORDERED: IOHEXOL 350 MG/ML 100ML IJ ONE (11:03)
[2021-06-24 13:00] VITALS: BP 154/96
[2021-06-24 13:30] VITALS: BP 146/75
[2021-06-24 17:00] VITALS: BP 125/80
[2021-06-24] MEDS: ONDANSETRON HCL 4 MG/2 ML VIAL IV PRN (20:27)
[2021-06-24] MEDS: ATORVASTATIN 20 MG TAB PO SCH (21:16)
[2021-06-24 22:00] VITALS: BP_SYST 125; BP_SYST 156; BP_DIAS 66; BP_DIAS 86
[2021-06-25 04:49] VITALS: BP 95/63
[2021-06-25 06:12] LABS: Basophils # (auto) 0 10 ^3/uL (0-0.2); Basophils % (auto) 0.6 % (0.0-2.0); Eosinophils # (auto) 0.2 10 ^3/uL (0-0.8); Eosinophils % (auto) 3.4 % (0.0-7.0); Hematocrit 40.7 % (41.0-53.0); Hemoglobin 13.8 g/dL (13.5-17.5); Lymphocytes # (auto) 1.2 10 ^3/uL (0.4-5.4); Lymphocytes % (auto) 18.8 % (10.0-50.0); Mean Corpuscular Hemoglobin 32.1 pg (28.0-32.0); Mean Corpuscular Hgb Conc. 33.9 g/dL (32.0-36.0); Mean Corpuscular Volume 94.5 fL (80.0-100.0); Monocytes # (auto) 0.7 10 ^3/uL (0-1.3); Monocytes % (auto) 10.6 % (0.0-12.0); Neutrophils # (auto) 4.3 10 ^3/uL (1.6-8.6); Neutrophils % (auto) 66.6 % (37.0-80.0); Nucleated Red Blood Cells % 0.2 %; Red Blood Cells 4.31 10^6/uL (4.5-5.90); Red Cell Distribution Width 14.1 % (11.8-14.3); White Blood Cell 6.5 10^3/uL (4.4-10.8)
[2021-06-25] MEDS: ACCU-CHEK COMFORT CURVE STRIP VI SCH ×3 (06:36→17:00)
[2021-06-25] MEDS: InsuLIN REG 1unit/0.01ml Soln (100units/ml) SC SCH ×3 (06:44→17:00)
[2021-06-25 06:46] LABS: BUN/Creatinine Ratio 17.3; Calcium 8.8 mg/dL (8.5-10.1); Potassium 3.5 mmol/L (3.5-5.1)
[2021-06-25] MEDS ORDERED: ceFAZolin 1GM/50ML 100 ML IV ONE (07:44)
[2021-06-25] MEDS ORDERED: MIDAZOLAM HCL 2MG/2ML 2ml VIAL (1mg/ml) ONE (07:45)
[2021-06-25] MEDS ORDERED: fentaNYL CITRATE 100 MCG/2 ML VL ONE (07:45)
[2021-06-25] MEDS: ceFAZolin 1GM VL ONE ×2 (08:08→10:20)
[2021-06-25] MEDS ORDERED: PROPOFOL 10 MG/ML 20 ML IV ONE (08:25)
[2021-06-25] MEDS ORDERED: LIDOCAINE 2% (LOCAL ANESTH.) PF 5ml SDV ONE (08:26)
[2021-06-25] MEDS ORDERED: ONDANSETRON HCL 4 MG/2 ML VIAL ONE (08:26)
[2021-06-25] MEDS ORDERED: HYDROmorphone HCL 2 MG/ML VL ONE (08:34)
[2021-06-25] MEDS ORDERED: HYDROmorphone HCL 2 MG/ML VL IV PRN (08:45)
[2021-06-25] MEDS ORDERED: ONDANSETRON HCL 4 MG/2 ML VIAL IV PRN (08:45)
[2021-06-25] MEDS: SODIUM CHLORIDE 0.9% 1,000 ML IV SCH (09:15)
[2021-06-25] MEDS: LISINOPRIL 20 MG TAB PO SCH (09:33)
[2021-06-25] MEDS: MORPHINE SULFATE 4 MG/ML SYR/VIAL IV PRN (09:34)
[2021-06-25] MEDS: ENOXAPARIN SOD 40 MG/0.4 ML SYRINGE SC SCH (10:00)
[2021-06-25] MEDS: PANTOPRAZOLE 40 MG TAB PO SCH (10:00)
[2021-06-25] MEDS ORDERED: SUCCINYLCHOLINE CHLORIDE 20 MG/ML 10ML VIAL IV ONE (12:28)
[2021-06-25 13:00] VITALS: BP 158/69
[2021-06-25] MEDS ORDERED: HYDR-4902 PO (13:59)
[2021-06-25 17:25] VITALS: BP 152/77
== END 2021-06-25 18:00 | disposition home health service (06) | DRG 312 ==
LOC: ER 20:00 → OVERFLOW 06-22 01:01 → CENTRAL 06-22 05:42
PROVIDERS: ADMIT Hospitalist; ATTEND Hospitalist
PROC: 04JY3ZZ Inspection of Lower Artery, Percutaneous Approach (ICD-10-PCS; 2021-06-24)
PROC: 0HRNXK3 Replacement of Left Foot Skin with Nonautologous Tissue Substitute, Full Thickness, External Approach (ICD-10-PCS; 2021-06-25)
PROC: 0JBR0ZZ Excision of Left Foot Subcutaneous Tissue and Fascia, Open Approach (ICD-10-PCS; principal; 2021-06-25 07:47)
DX: E11.621 Type 2 diabetes mellitus with foot ulcer (principal); M86.9 Osteomyelitis, unspecified; E11.51 Type 2 diabetes mellitus with diabetic peripheral angiopathy without gangrene; L97.322 Non-pressure chronic ulcer of left ankle with fat layer exposed; E11.69 Type 2 diabetes mellitus with other specified complication; K21.9 Gastro-esophageal reflux disease without esophagitis; I10 Essential (primary) hypertension; F41.9 Anxiety disorder, unspecified; F32.A Depression, unspecified; G25.81 Restless legs syndrome; J44.9 Chronic obstructive pulmonary disease, unspecified; E78.5 Hyperlipidemia, unspecified; F17.210 Nicotine dependence, cigarettes, uncomplicated; Z20.822 Contact with and (suspected) exposure to COVID-19; Z82.49 Family history of ischemic heart disease and other diseases of the circulatory system; Z83.3 Family history of diabetes mellitus; Z88.6 Allergy status to analgesic agent; Z71.6 Tobacco abuse counseling
CPT/HCPCS: 36140; 36415; 71045; 73700; 73721; 75635; 80048; 80053; 80202; 82565; 82962; 83605; 85025; 85610; 85652; 86141; 86850; 86900; 86901; 87040; 87070; 87075; 87077; 87186; 87205; 87426; 93925; 96365; 96366; 96368; 96375; 99152; 99153; G0378; J0330; J0690; J1815; J2001; J2185; J2250; J2405; J2543; J2704; Q9967

== ENCOUNTER 2021-07-17 16:25 | Inpatient (IN) | payer MEDICAID ==
[~2021-07-17] VITALS: Ht 172.7 cm; Wt 68.9 kg
[~2021-07-17 16:25] MED LIST changes: +HYDR-4902 PO; -TRAZ50TA2 PO
[2021-07-17] MEDS ORDERED: CLINDAMYCIN 600MG IV 50 ML IV ONE (17:00)
[2021-07-17 17:33] LABS: Basophils # (auto) 0.1 10 ^3/uL (0-0.2); Basophils % (auto) 0.7 % (0.0-2.0); Eosinophils # (auto) 0.1 10 ^3/uL (0-0.8); Eosinophils % (auto) 1.7 % (0.0-7.0); Hematocrit 41.4 % (41.0-53.0); Hemoglobin 14.2 g/dL (13.5-17.5); Lymphocytes # (auto) 1.4 10 ^3/uL (0.4-5.4); Lymphocytes % (auto) 16.8 % (10.0-50.0); Mean Corpuscular Hemoglobin 31.7 pg (28.0-32.0); Mean Corpuscular Hgb Conc. 34.4 g/dL (32.0-36.0); Mean Corpuscular Volume 92.4 fL (80.0-100.0); Monocytes # (auto) 0.6 10 ^3/uL (0-1.3); Monocytes % (auto) 7.1 % (0.0-12.0); Neutrophils # (auto) 6.3 10 ^3/uL (1.6-8.6); Neutrophils % (auto) 73.7 % (37.0-80.0); Red Blood Cells 4.48 10^6/uL (4.5-5.90); Red Cell Distribution Width 14.5 % (11.8-14.3); White Blood Cell 8.5 10^3/uL (4.4-10.8)
[2021-07-17 17:48] LABS: INR 1.04 (0.9-1.15); Partial Thromboplastin Time 30.9 sec (23.6-33.0)
[2021-07-17 17:54] LABS: Albumin 3.5 g/dL (3.4-5.0); BUN/Creatinine Ratio 10.8; Calcium 8.9 mg/dL (8.5-10.1); Potassium 3.2 mmol/L (3.5-5.1)
[2021-07-17 17:57] LABS: Bilirubin, Total 0.3 mg/dL (0.2-1.0); Total Protein 7.3 g/dL (6.4-8.2)
[2021-07-17] MEDS ORDERED: NITROGLYCERIN 0.4 MG SL TAB SL PRN (20:45)
[2021-07-17] MEDS ORDERED: MORPHINE SULFATE INJECTION 2 MG/ML SYRG IV PRN (20:45)
[2021-07-17] MEDS ORDERED: DOCUSATE SOD 100 MG CAP PO PRN (20:45)
[2021-07-17] MEDS ORDERED: hydrALAZINE HCL 20 MG/ML VL IV PRN (20:45)
[2021-07-17] MEDS ORDERED: ONDANSETRON HCL 4 MG/2 ML VIAL IV PRN (20:45)
[2021-07-17] MEDS: POTASSIUM CHL 20MEQ/100ML 100 ML IV SCH ×2 (20:45→22:00)
[2021-07-17] MEDS ORDERED: DEXTROSE (50%) 50ML SYRG IV PRN (20:45)
[2021-07-17] MEDS: SODIUM CHLORIDE 0.9% 1,000 ML IV SCH (22:02)
[2021-07-17 23:22] VITALS: BP 144/89
[2021-07-18] MEDS: ACCU-CHEK COMFORT CURVE STRIP VI SCH ×4 (00:10→17:09)
[2021-07-18 04:48] VITALS: BP 144/89
[2021-07-18 05:27] VITALS: BP 133/67
[2021-07-18] MEDS: SODIUM CHLORIDE 0.9% 1,000 ML IV SCH ×2 (05:30→15:34)
[2021-07-18] MEDS: InsuLIN REG 1unit/0.01ml Soln (100units/ml) SC SCH ×4 (06:00→17:13)
[2021-07-18 06:17] LABS: Basophils # (auto) 0 10 ^3/uL (0-0.2); Basophils % (auto) 0.4 % (0.0-2.0); Eosinophils # (auto) 0.2 10 ^3/uL (0-0.8); Eosinophils % (auto) 2.7 % (0.0-7.0); Hematocrit 38.3 % (41.0-53.0); Hemoglobin 13.1 g/dL (13.5-17.5); Lymphocytes # (auto) 1.3 10 ^3/uL (0.4-5.4); Lymphocytes % (auto) 16.9 % (10.0-50.0); Mean Corpuscular Hemoglobin 31.7 pg (28.0-32.0); Mean Corpuscular Hgb Conc. 34.2 g/dL (32.0-36.0); Mean Corpuscular Volume 92.7 fL (80.0-100.0); Monocytes # (auto) 0.7 10 ^3/uL (0-1.3); Monocytes % (auto) 8.7 % (0.0-12.0); Neutrophils # (auto) 5.5 10 ^3/uL (1.6-8.6); Neutrophils % (auto) 71.3 % (37.0-80.0); Nucleated Red Blood Cells % 0.1 %; Red Blood Cells 4.13 10^6/uL (4.5-5.90); Red Cell Distribution Width 14.1 % (11.8-14.3); White Blood Cell 7.7 10^3/uL (4.4-10.8)
[2021-07-18 06:27] LABS: Calcium 8.6 mg/dL (8.5-10.1); Potassium 3.3 mmol/L (3.5-5.1)
[2021-07-18 06:30] LABS: BUN/Creatinine Ratio 19.7
[2021-07-18] MEDS: MORPHINE SULFATE INJECTION 2 MG/ML SYRG IV PRN ×2 (07:00→21:24)
[2021-07-18 08:00] VITALS: BP 159/93
[2021-07-18 09:00] VITALS: BP 159/93
[2021-07-18] MEDS ORDERED: PANTOPRAZOLE 40 MG TAB PO SCH (10:00)
[2021-07-18] MEDS ORDERED: MIDAZOLAM HCL 2MG/2ML 2ml VIAL (1mg/ml) ONE (11:05)
[2021-07-18] MEDS ORDERED: ONDANSETRON HCL 4 MG/2 ML VIAL ONE (11:05)
[2021-07-18] MEDS ORDERED: fentaNYL CITRATE 100 MCG/2 ML VL ONE (11:05)
[2021-07-18] MEDS ORDERED: PROPOFOL 10 MG/ML 20 ML IV ONE (11:05)
[2021-07-18] MEDS ORDERED: ROPIVACAINE 0.5% (5MG/ML) 20ML AMPULE IJ ONE (11:13)
[2021-07-18] MEDS ORDERED: VANCOMYCIN HCL 1000 MG VL ONE (11:14)
[2021-07-18] MEDS ORDERED: ceFAZolin 1GM VL ONE (11:35)
[2021-07-18] MEDS ORDERED: ceFAZolin 1GM/50ML 100 ML IV ONE (11:36)
[2021-07-18] MEDS: HYDROmorphone HCL 2 MG/ML VL ONE ×4 (12:29→13:10)
[2021-07-18] MEDS ORDERED: METOCLOPRAMIDE HCL 5MG/ml INJ 2ml VIAL IV PRN (12:30)
[2021-07-18] MEDS ORDERED: HYDROmorphone HCL 2 MG/ML VL IV PRN (12:30)
[2021-07-18] MEDS ORDERED: ACCU-CHEK COMFORT CURVE STRIP VI ONE (12:30)
[2021-07-18] MEDS ORDERED: MORPHINE SULFATE 4 MG/ML SYR/VIAL IV PRN (12:30)
[2021-07-18] MEDS ORDERED: MORPHINE SULFATE INJECTION 2 MG/ML SYRG ONE (12:35)
[2021-07-18] MEDS: hydrALAZINE HCL 20 MG/ML VL ONE ×2 (13:12→13:15)
[2021-07-18] MEDS ORDERED: hydrALAZINE HCL 20 MG/ML VL IV ONE ×2 (13:15→14:15)
[2021-07-18 17:00] VITALS: BP 137/83
[2021-07-18] MEDS ORDERED: POTASSIUM CHL 20 Meq TABLET PO ONE (20:30)
[2021-07-18] MEDS ORDERED: HYDR-4902 PO (20:34)
[2021-07-18] MEDS ORDERED: CLINDAMYCIN 600MG IV 50 ML IV SCH (22:00)
[2021-07-18 22:31] VITALS: BP 150/90
[2021-07-19] MEDS: ACCU-CHEK COMFORT CURVE STRIP VI SCH ×2 (00:07→05:28)
[2021-07-19] MEDS: MORPHINE SULFATE INJECTION 2 MG/ML SYRG IV PRN (03:23)
[2021-07-19] MEDS ORDERED: POTASSIUM CHL 20 Meq TABLET PO ONE (03:30)
[2021-07-19 05:06] VITALS: BP 124/71
[2021-07-19] MEDS: InsuLIN REG 1unit/0.01ml Soln (100units/ml) SC SCH ×2 (05:28)
[2021-07-19 06:37] LABS: Basophils # (auto) 0.1 10 ^3/uL (0-0.2); Basophils % (auto) 0.8 % (0.0-2.0); Eosinophils # (auto) 0.2 10 ^3/uL (0-0.8); Eosinophils % (auto) 2.2 % (0.0-7.0); Hematocrit 39.3 % (41.0-53.0); Hemoglobin 13.1 g/dL (13.5-17.5); Lymphocytes # (auto) 1.4 10 ^3/uL (0.4-5.4); Lymphocytes % (auto) 19.3 % (10.0-50.0); Mean Corpuscular Hemoglobin 30.8 pg (28.0-32.0); Mean Corpuscular Hgb Conc. 33.3 g/dL (32.0-36.0); Mean Corpuscular Volume 92.6 fL (80.0-100.0); Monocytes # (auto) 0.7 10 ^3/uL (0-1.3); Monocytes % (auto) 10.2 % (0.0-12.0); Neutrophils # (auto) 4.8 10 ^3/uL (1.6-8.6); Neutrophils % (auto) 67.5 % (37.0-80.0); Nucleated Red Blood Cells % 0.1 %; Red Blood Cells 4.25 10^6/uL (4.5-5.90); Red Cell Distribution Width 14.4 % (11.8-14.3); White Blood Cell 7.2 10^3/uL (4.4-10.8)
[2021-07-19 06:52] LABS: BUN/Creatinine Ratio 17.7; Calcium 9.1 mg/dL (8.5-10.1); Potassium 3.7 mmol/L (3.5-5.1)
[2021-07-19] MEDS ORDERED: levoFLOXacin 500MG 100 ML IV SCH (10:00)
== END 2021-07-19 06:50 | disposition home health service (06) | DRG 951 ==
LOC: ER 16:25 → OVERFLOW 20:35 → WEST WING 22:25
PROVIDERS: ADMIT Hospitalist; ATTEND Hospitalist
PROC: 0LUW0KZ Supplement Left Foot Tendon with Nonautologous Tissue Substitute, Open Approach (ICD-10-PCS; principal; 2021-07-18 11:40)
DX: E11.621 Type 2 diabetes mellitus with foot ulcer (principal); L97.529 Non-pressure chronic ulcer of other part of left foot with unspecified severity; E11.51 Type 2 diabetes mellitus with diabetic peripheral angiopathy without gangrene; E78.5 Hyperlipidemia, unspecified; E87.6 Hypokalemia; F17.210 Nicotine dependence, cigarettes, uncomplicated; F32.A Depression, unspecified; F41.9 Anxiety disorder, unspecified; G25.81 Restless legs syndrome; I10 Essential (primary) hypertension; Z20.822 Contact with and (suspected) exposure to COVID-19; J44.9 Chronic obstructive pulmonary disease, unspecified; K21.9 Gastro-esophageal reflux disease without esophagitis; Z82.49 Family history of ischemic heart disease and other diseases of the circulatory system; Z83.3 Family history of diabetes mellitus; Z88.6 Allergy status to analgesic agent
CPT/HCPCS: 36415; 71045; 73700; 80048; 80053; 82962; 85025; 85610; 85652; 85730; 87426; 93005; 96365; 96375; G0378; J0690; J2250; J2405; J2704; J3480; J3490

== ENCOUNTER 2021-08-03 14:00 | Emergency (ER) | payer MEDICAID ==
[~2021-08-03] VITALS: Ht 165.1 cm; Wt 71.7 kg
[2021-08-03 15:25] LABS: Basophils # (auto) 0 10 ^3/uL (0-0.2); Basophils % (auto) 0.4 % (0.0-2.0); Eosinophils # (auto) 0.1 10 ^3/uL (0-0.8); Eosinophils % (auto) 1.4 % (0.0-7.0); Hematocrit 41.5 % (41.0-53.0); Hemoglobin 14.3 g/dL (13.5-17.5); Lymphocytes # (auto) 1.4 10 ^3/uL (0.4-5.4); Lymphocytes % (auto) 16.6 % (10.0-50.0); Mean Corpuscular Hemoglobin 31.9 pg (28.0-32.0); Mean Corpuscular Hgb Conc. 34.5 g/dL (32.0-36.0); Mean Corpuscular Volume 92.4 fL (80.0-100.0); Monocytes # (auto) 0.4 10 ^3/uL (0-1.3); Monocytes % (auto) 5.4 % (0.0-12.0); Neutrophils # (auto) 6.4 10 ^3/uL (1.6-8.6); Neutrophils % (auto) 76.2 % (37.0-80.0); Red Blood Cells 4.49 10^6/uL (4.5-5.90); Red Cell Distribution Width 14.9 % (11.8-14.3); White Blood Cell 8.4 10^3/uL (4.4-10.8)
[2021-08-03 15:35] LABS: Albumin 3.5 g/dL (3.4-5.0); Calcium 8.7 mg/dL (8.5-10.1); Potassium 3.3 mmol/L (3.5-5.1)
[2021-08-03 15:38] LABS: BUN/Creatinine Ratio 13.4; Bilirubin, Total 0.4 mg/dL (0.2-1.0); Total Protein 7.2 g/dL (6.4-8.2)
[2021-08-03 16:43] VITALS: BP 167/84
== END 2021-08-03 16:56 | disposition home or self-care (01) ==
LOC: ER 14:00
DX: L03.116 Cellulitis of left lower limb (principal); J44.9 Chronic obstructive pulmonary disease, unspecified; E11.9 Type 2 diabetes mellitus without complications; K21.9 Gastro-esophageal reflux disease without esophagitis; E78.5 Hyperlipidemia, unspecified; I10 Essential (primary) hypertension; F17.210 Nicotine dependence, cigarettes, uncomplicated
CPT/HCPCS: 36415; 73700; 80053; 85025; 85652

== ENCOUNTER 2021-10-19 16:59 | Emergency (ER) | payer MEDICAID ==
[~2021-10-19] VITALS: Ht 172.7 cm; Wt 71.7 kg
[2021-10-19 17:45] VITALS: BP 148/73
== END 2021-10-19 22:41 | disposition home or self-care (01) ==
LOC: ER 17:01
DX: R22.42 Localized swelling, mass and lump, left lower limb (principal); J44.9 Chronic obstructive pulmonary disease, unspecified; E11.9 Type 2 diabetes mellitus without complications; K21.9 Gastro-esophageal reflux disease without esophagitis; E78.5 Hyperlipidemia, unspecified; I10 Essential (primary) hypertension; F17.210 Nicotine dependence, cigarettes, uncomplicated

== ENCOUNTER 2021-12-13 13:25 | Emergency (ER) | payer MEDICAID ==
[~2021-12-13] VITALS: Ht 167.6 cm; Wt 73.0 kg
[2021-12-13 16:22] LABS: Basophils # (auto) 0.1 10 ^3/uL (0-0.2); Basophils % (auto) 0.7 % (0.0-2.0); Eosinophils # (auto) 0.5 10 ^3/uL (0-0.8); Eosinophils % (auto) 5.5 % (0.0-7.0); Hematocrit 40.7 % (41.0-53.0); Hemoglobin 13.9 g/dL (13.5-17.5); Lymphocytes # (auto) 1.9 10 ^3/uL (0.4-5.4); Lymphocytes % (auto) 21.2 % (10.0-50.0); Mean Corpuscular Hemoglobin 31.3 pg (28.0-32.0); Mean Corpuscular Hgb Conc. 34.1 g/dL (32.0-36.0); Mean Corpuscular Volume 91.8 fL (80.0-100.0); Monocytes # (auto) 0.5 10 ^3/uL (0-1.3); Neutrophils # (auto) 5.8 10 ^3/uL (1.6-8.6); Neutrophils % (auto) 66.6 % (37.0-80.0); Nucleated Red Blood Cells % 0.1 %; Red Blood Cells 4.43 10^6/uL (4.5-5.90); Red Cell Distribution Width 14.2 % (11.8-14.3); White Blood Cell 8.8 10^3/uL (4.4-10.8)
[2021-12-13 16:36] LABS: Albumin 3.5 g/dL (3.4-5.0); BUN/Creatinine Ratio 10.9; Calcium 8.8 mg/dL (8.5-10.1)
[2021-12-13 16:38] LABS: Bilirubin, Total 0.3 mg/dL (0.2-1.0); Total Protein 7.3 g/dL (6.4-8.2)
[2021-12-13] MEDS ORDERED: KETOROLAC TROMETH 30 MG/ML 1ML VIAL IM ONE (19:45)
[2021-12-13] MEDS ORDERED: HYDROcodone-ACET 5/325MG TAB PO ONE (19:45)
[2021-12-13 19:57] LABS: Urine Bacteria NONE SEEN /hpf (None Seen); Urine Blood Negative /uL (Negative); Urine Mucus FEW (None Seen); Urine Specific Gravity 1.009 (1.001-1.035); Urine WBC 1 /hpf (0 - 3)
[2021-12-13] MEDS ORDERED: HYDR-4902 PO ×2 (21:47→22:21)
[2021-12-13] MEDS ORDERED: METOCLOPRAMIDE HCL 5MG/ml INJ 2ml VIAL ONE (22:02)
[2021-12-13 22:30] VITALS: BP 131/72
== END 2021-12-13 22:34 | disposition home or self-care (01) ==
LOC: ER 13:25
DX: L97.329 Non-pressure chronic ulcer of left ankle with unspecified severity (principal); J44.9 Chronic obstructive pulmonary disease, unspecified; E11.9 Type 2 diabetes mellitus without complications; K21.9 Gastro-esophageal reflux disease without esophagitis; E78.5 Hyperlipidemia, unspecified; I10 Essential (primary) hypertension; F17.210 Nicotine dependence, cigarettes, uncomplicated; Z88.6 Allergy status to analgesic agent
CPT/HCPCS: 36415; 73610; 73630; 80053; 81001; 83605; 85025; 85652; 86141; 87040; 87077; 87186; 87205; 96372; 99285; J1885; J2765

== ENCOUNTER 2022-02-19 16:33 | Emergency (ER) | payer OTHER, MEDICAID ==
[~2022-02-19] VITALS: Ht 167.6 cm; Wt 73.5 kg
[2022-02-19 16:57] VITALS: BP 126/78
[2022-02-19] MEDS ORDERED: CLIN300C8 PO (19:53)
== END 2022-02-19 22:17 | disposition left against medical advice (07) ==
LOC: ER 16:33
DX: L03.116 Cellulitis of left lower limb (principal); I10 Essential (primary) hypertension; E11.9 Type 2 diabetes mellitus without complications; E78.5 Hyperlipidemia, unspecified; K21.9 Gastro-esophageal reflux disease without esophagitis; J44.9 Chronic obstructive pulmonary disease, unspecified; F17.210 Nicotine dependence, cigarettes, uncomplicated; Z79.899 Other long term (current) drug therapy; Z88.6 Allergy status to analgesic agent; Z91.013 Allergy to seafood

== ENCOUNTER 2022-02-25 19:28 | Emergency (ER) | payer OTHER, MEDICAID ==
[~2022-02-25] VITALS: Ht 165.1 cm; Wt 73.5 kg
[~2022-02-25 19:28] MED LIST changes: +CLIN300C8 PO
[2022-02-25 20:25] VITALS: BP 143/85
[2022-02-27] MEDS ORDERED: ACET-6 PO (03:27)
[2022-02-27] MEDS ORDERED: METF-370 PO (03:27)
[2022-02-27] MEDS ORDERED: METO25TA5 PO (03:27)
[2022-02-27] MEDS ORDERED: IBUP800T27 PO (03:27)
[2022-02-27] MEDS ORDERED: ROPI2TAB6 PO (03:27)
== END 2022-02-26 01:00 | disposition left against medical advice (07) ==
LOC: ER 19:28
DX: M79.662 Pain in left lower leg (principal); Z53.21 Procedure and treatment not carried out due to patient leaving prior to being seen by health care provider

== ENCOUNTER 2022-02-26 14:18 | Inpatient (IN) | payer OTHER, MEDICAID ==
[~2022-02-26] VITALS: Ht 165.1 cm; Wt 76.5 kg
[2022-02-26] MEDS ORDERED: VANCOMYCIN 1GM/250ML 250 ML IV ONE (15:45)
[2022-02-26] MEDS ORDERED: PIPERACILLIN-TAZOB 3.375GM 100 ML IV ONE (15:45)
[2022-02-26 16:10] LABS: Basophils # (auto) 0 10 ^3/uL (0-0.2); Basophils % (auto) 0.4 % (0.0-2.0); Eosinophils # (auto) 0.3 10 ^3/uL (0-0.8); Eosinophils % (auto) 3.6 % (0.0-7.0); Hematocrit 38.2 % (41.0-53.0); Hemoglobin 12.8 g/dL (13.5-17.5); Lymphocytes # (auto) 1.6 10 ^3/uL (0.4-5.4); Lymphocytes % (auto) 22.7 % (10.0-50.0); Mean Corpuscular Hemoglobin 30.7 pg (28.0-32.0); Mean Corpuscular Hgb Conc. 33.6 g/dL (32.0-36.0); Mean Corpuscular Volume 91.6 fL (80.0-100.0); Monocytes # (auto) 0.5 10 ^3/uL (0-1.3); Monocytes % (auto) 7.2 % (0.0-12.0); Neutrophils # (auto) 4.6 10 ^3/uL (1.6-8.6); Neutrophils % (auto) 66.1 % (37.0-80.0); Nucleated Red Blood Cells % 0.1 %; Red Blood Cells 4.18 10^6/uL (4.5-5.90); Red Cell Distribution Width 14.7 % (11.8-14.3); White Blood Cell 6.9 10^3/uL (4.4-10.8)
[2022-02-26 16:20] LABS: Calcium 8.8 mg/dL (8.5-10.1); Potassium 3.7 mmol/L (3.5-5.1)
[2022-02-26 16:24] LABS: Albumin 3.5 g/dL (3.4-5.0); BUN/Creatinine Ratio 10.9
[2022-02-26 16:29] LABS: Bilirubin, Total 0.3 mg/dL (0.2-1.0); Total Protein 7.2 g/dL (6.4-8.2)
[2022-02-26 17:01] LABS: CRP High Sensitivity 0.75 mg/dL (< 0.3)
[2022-02-26] MEDS ORDERED: VANCOMYCIN PER PHARMACY 0 MG IV SCH (22:15)
[2022-02-26] MEDS ORDERED: ONDANSETRON HCL 4 MG/2 ML VIAL IV PRN (22:15)
[2022-02-26] MEDS ORDERED: DEXTROSE (50%) 50ML SYRG IV PRN (22:15)
[2022-02-26] MEDS ORDERED: ACETAMINOPHEN 325 MG TAB PO PRN (22:15)
[2022-02-26] MEDS ORDERED: DOCUSATE SOD 100 MG CAP PO PRN (22:15)
[2022-02-26] MEDS ORDERED: MORPHINE SULFATE INJ 2 MG/ml SYRG IV PRN (23:15)
[2022-02-26] MEDS ORDERED: NITROGLYCERIN 0.4 MG SL TAB SL PRN (23:15)
[2022-02-27] VITALS (8 sets, daily range): BP systolic 122–163; BP diastolic 60–82
[2022-02-27] MEDS: HYDROcodone-ACET 5/325MG TAB PO PRN ×2 (01:41→21:57)
[2022-02-27] MEDS ORDERED: ACET-6 PO (03:27)
[2022-02-27] MEDS ORDERED: METF-370 PO (03:27)
[2022-02-27] MEDS ORDERED: ROPI2TAB6 PO (03:27)
[2022-02-27] MEDS ORDERED: METO25TA5 PO (03:27)
[2022-02-27] MEDS ORDERED: IBUP800T27 PO (03:27)
[2022-02-27 05:42] LABS: Potassium 3.5 mmol/L (3.5-5.1)
[2022-02-27 06:06] LABS: Albumin 2.9 g/dL (3.4-5.0); Bilirubin, Total 0.2 mg/dL (0.2-1.0); Calcium 8.3 mg/dL (8.5-10.1); Total Protein 6.3 g/dL (6.4-8.2)
[2022-02-27] MEDS: ACCU-CHEK COMFORT CURVE STRIP VI SCH ×4 (06:11→21:59)
[2022-02-27] MEDS: InsuLIN REG 1unit/0.01ml Soln (100units/ml) SC SCH ×4 (06:11→21:59)
[2022-02-27] MEDS: SODIUM CHLOR 0.9% PF (SALINE LOCK) 10ML VIAL/SYR IV SCH ×3 (06:11→21:58)
[2022-02-27 06:40] LABS: Basophils # (auto) 0 10 ^3/uL (0-0.2); Basophils % (auto) 0.6 % (0.0-2.0); Eosinophils # (auto) 0.2 10 ^3/uL (0-0.8); Eosinophils % (auto) 3.4 % (0.0-7.0); Hematocrit 35.3 % (41.0-53.0); Hemoglobin 11.9 g/dL (13.5-17.5); Lymphocytes # (auto) 1.5 10 ^3/uL (0.4-5.4); Lymphocytes % (auto) 22.6 % (10.0-50.0); Mean Corpuscular Hemoglobin 31.3 pg (28.0-32.0); Mean Corpuscular Hgb Conc. 33.7 g/dL (32.0-36.0); Mean Corpuscular Volume 92.7 fL (80.0-100.0); Monocytes # (auto) 0.4 10 ^3/uL (0-1.3); Monocytes % (auto) 6.4 % (0.0-12.0); Neutrophils # (auto) 4.3 10 ^3/uL (1.6-8.6); Nucleated Red Blood Cells % 0.1 %; Red Blood Cells 3.81 10^6/uL (4.5-5.90); Red Cell Distribution Width 14.8 % (11.8-14.3); White Blood Cell 6.4 10^3/uL (4.4-10.8)
[2022-02-27] MEDS: MULTIPLE VITAMIN TAB PO SCH (08:49)
[2022-02-27] MEDS: FAMOTIDINE (10MG/ML) 2ML VL IV SCH ×2 (08:49→21:58)
[2022-02-27] MEDS: ZINC SULFATE 220mg CAP or TAB PO SCH (08:49)
[2022-02-27] MEDS: LISINOPRIL 20 MG TAB PO SCH (08:50)
[2022-02-27] MEDS: ASCORBIC ACID 500 MG TAB PO SCH ×2 (08:50→21:58)
[2022-02-27] MEDS: ENOXAPARIN SOD 40 MG/0.4 ML SYRINGE SC SCH (08:51)
[2022-02-27] MEDS ORDERED: VANCOMYCIN 1GM/250ML 250 ML IV ONE (09:00)
[2022-02-27] MEDS: VANCOMYCIN 1GM/250ML 250 ML IV SCH (18:44)
[2022-02-27] MEDS ORDERED: ATORVASTATIN 20 MG TAB PO SCH (22:00)
[2022-02-28] VITALS (7 sets, daily range): BP systolic 144–182; BP diastolic 70–92
[2022-02-28] MEDS ORDERED: hydrALAZINE HCL 20 MG/ML VL IV PRN (05:00)
[2022-02-28] MEDS ORDERED: TIOTCAP IN (05:22)
[2022-02-28] MEDS ORDERED: HYDRX10T PO (05:22)
[2022-02-28] MEDS ORDERED: ALBU108A5 IN (05:22)
[2022-02-28] MEDS ORDERED: POM IN (05:22)
[2022-02-28] MEDS: InsuLIN REG 1unit/0.01ml Soln (100units/ml) SC SCH ×3 (06:02→17:32)
[2022-02-28] MEDS: SODIUM CHLOR 0.9% PF (SALINE LOCK) 10ML VIAL/SYR IV SCH ×2 (06:02→14:00)
[2022-02-28] MEDS: ACCU-CHEK COMFORT CURVE STRIP VI SCH ×3 (06:02→17:32)
[2022-02-28] MEDS: VANCOMYCIN 1GM/250ML 250 ML IV SCH (08:57)
[2022-02-28] MEDS: FAMOTIDINE (10MG/ML) 2ML VL IV SCH (10:37)
[2022-02-28] MEDS: ASCORBIC ACID 500 MG TAB PO SCH (10:37)
[2022-02-28] MEDS: LISINOPRIL 20 MG TAB PO SCH (10:38)
[2022-02-28] MEDS: ZINC SULFATE 220mg CAP or TAB PO SCH (10:39)
[2022-02-28] MEDS: MULTIPLE VITAMIN TAB PO SCH (10:39)
[2022-02-28] MEDS: ENOXAPARIN SOD 40 MG/0.4 ML SYRINGE SC SCH (10:40)
[2022-02-28] MEDS ORDERED: SULF400T11 PO (13:57)
== END 2022-02-28 17:30 | disposition home or self-care (01) | DRG 638 ==
LOC: ER 14:18 → WEST WING 23:10 → TELE-WESTW 02-28 00:20
PROVIDERS: ADMIT Nurse Practitioner Family; ATTEND Internal Medicine
DX: E11.621 Type 2 diabetes mellitus with foot ulcer (principal); L03.116 Cellulitis of left lower limb; L97.529 Non-pressure chronic ulcer of other part of left foot with unspecified severity; E11.51 Type 2 diabetes mellitus with diabetic peripheral angiopathy without gangrene; E78.5 Hyperlipidemia, unspecified; F17.210 Nicotine dependence, cigarettes, uncomplicated; F51.04 Psychophysiologic insomnia; J44.9 Chronic obstructive pulmonary disease, unspecified; I10 Essential (primary) hypertension; K21.9 Gastro-esophageal reflux disease without esophagitis; F32.A Depression, unspecified; R00.1 Bradycardia, unspecified; Z20.822 Contact with and (suspected) exposure to COVID-19; Z82.49 Family history of ischemic heart disease and other diseases of the circulatory system; Z88.6 Allergy status to analgesic agent; Z91.013 Allergy to seafood; Z83.3 Family history of diabetes mellitus; Z71.6 Tobacco abuse counseling; Z79.84 Long term (current) use of oral hypoglycemic drugs
CPT/HCPCS: 36415; 73630; 73700; 80053; 80061; 80202; 82550; 82565; 82962; 83036; 85025; 85652; 86141; 87077; 87186; 87205; 93306; 93971; 96365; 96366; 96367; G0378; J1815; J2405; J2543; J3490

== ENCOUNTER 2022-03-04 00:21 | Emergency (ER) | payer OTHER, MEDICAID ==
[~2022-03-04] VITALS: Ht 152.4 cm; Wt 63.5 kg
[2022-03-04 00:21] VITALS: BP 143/75
[~2022-03-04 00:21] MED LIST changes: -ACET-1156 PO; +ACET-6 PO; +ALBU108A5 IN; +HYDRX10T PO; +IBUP800T27 PO; +METO25TA5 PO; +POM IN; +ROPI2TAB6 PO; -ROPI6TAB PO; +SULF400T11 PO
== END 2022-03-04 01:50 | disposition home or self-care (01) ==
LOC: ER 00:21
DX: L97.329 Non-pressure chronic ulcer of left ankle with unspecified severity (principal); J44.9 Chronic obstructive pulmonary disease, unspecified; E11.9 Type 2 diabetes mellitus without complications; K21.9 Gastro-esophageal reflux disease without esophagitis; E78.5 Hyperlipidemia, unspecified; I10 Essential (primary) hypertension; F17.210 Nicotine dependence, cigarettes, uncomplicated; Z88.6 Allergy status to analgesic agent

== ENCOUNTER 2022-03-07 23:25 | Emergency (ER) | payer OTHER, MEDICAID ==
[~2022-03-07] VITALS: Ht 167.6 cm; Wt 72.6 kg
[2022-03-08 00:08] VITALS: BP 138/66
== END 2022-03-08 02:49 | disposition left against medical advice (07) ==
LOC: ER 23:25
DX: R22.42 Localized swelling, mass and lump, left lower limb (principal); Z53.21 Procedure and treatment not carried out due to patient leaving prior to being seen by health care provider

== ENCOUNTER 2022-04-26 15:02 | Inpatient (IN) | payer OTHER, MEDICAID ==
[~2022-04-26] VITALS: Ht 167.6 cm; Wt 73.0 kg
[2022-04-26] MEDS ORDERED: SODIUM CHLORIDE 0.9% 500 ML IV ONE (15:45)
[2022-04-26] MEDS ORDERED: CLINDAMYCIN 600MG IV 50 ML IV ONE (15:45)
[2022-04-26 16:33] LABS: Basophils # (auto) 0 10 ^3/uL (0-0.2); Basophils % (auto) 0.6 % (0.0-2.0); Eosinophils # (auto) 0.3 10 ^3/uL (0-0.8); Eosinophils % (auto) 4.4 % (0.0-7.0); Hematocrit 37.7 % (41.0-53.0); Hemoglobin 12.6 g/dL (13.5-17.5); Lymphocytes # (auto) 1.4 10 ^3/uL (0.4-5.4); Lymphocytes % (auto) 19.8 % (10.0-50.0); Mean Corpuscular Hemoglobin 30.9 pg (28.0-32.0); Mean Corpuscular Hgb Conc. 33.4 g/dL (32.0-36.0); Mean Corpuscular Volume 92.4 fL (80.0-100.0); Monocytes # (auto) 0.6 10 ^3/uL (0-1.3); Monocytes % (auto) 7.7 % (0.0-12.0); Neutrophils # (auto) 4.9 10 ^3/uL (1.6-8.6); Neutrophils % (auto) 67.5 % (37.0-80.0); Red Blood Cells 4.08 10^6/uL (4.5-5.90); Red Cell Distribution Width 14.6 % (11.8-14.3); White Blood Cell 7.3 10^3/uL (4.4-10.8)
[2022-04-26 16:56] LABS: Albumin 3.6 g/dL (3.4-5.0); BUN/Creatinine Ratio 22.2; Calcium 8.8 mg/dL (8.5-10.1); Potassium 3.5 mmol/L (3.5-5.1)
[2022-04-26 16:59] LABS: Bilirubin, Total 0.3 mg/dL (0.2-1.0); Total Protein 6.9 g/dL (6.4-8.2)
[2022-04-26] MEDS ORDERED: cefTRIAXone 1GM/50ML D5W 50 ML IV ONE (18:00)
[2022-04-26] MEDS ORDERED: MORPHINE SULFATE INJ 2 MG/ml SYRG IV PRN (18:00)
[2022-04-26] MEDS: SODIUM CHLORIDE 0.9% 1,000 ML IV SCH (18:56)
[2022-04-26] MEDS ORDERED: ALBUTEROL SULF 2.5 MG/0.5ML(0.5%) NEB SOLN NEB PRN ×2 (19:00→22:00)
[2022-04-26] MEDS ORDERED: IPRATROPIUM BROM 0.5 MG/2.5ML INH SOL NEB PRN ×2 (19:00→22:00)
[2022-04-26] MEDS ORDERED: DEXTROSE (50%) 50ML SYRG IV PRN (19:15)
[2022-04-26 19:19] LABS: Cholesterol 114 mg/dL (< 200)
[2022-04-26 19:20] VITALS: BP 119/64
[2022-04-26 19:21] LABS: HDL Cholesterol 41 mg/dL (40-59); INR 0.98 (0.9-1.15); LDL Cholesterol 65 mg/dL (< 100); Triglycerides 160 mg/dL (< 150)
[2022-04-26] MEDS: CLINDAMYCIN 600MG IV 50 ML IV SCH (21:46)
[2022-04-26] MEDS: GABAPENTIN 300 MG CAP PO SCH (21:46)
[2022-04-26 22:00] VITALS: BP 149/77
[2022-04-26] MEDS: ACCU-CHEK COMFORT CURVE STRIP VI SCH (22:08)
[2022-04-26] MEDS: InsuLIN REG 1unit/0.01ml Soln (100units/ml) SC SCH (23:10)
[2022-04-27] MEDS: SODIUM CHLORIDE 0.9% 1,000 ML IV SCH ×3 (03:00→18:00)
[2022-04-27 05:00] VITALS: BP 97/41
[2022-04-27 05:30] LABS: Basophils # (auto) 0 10 ^3/uL (0-0.2); Basophils % (auto) 0.9 % (0.0-2.0); Eosinophils # (auto) 0.2 10 ^3/uL (0-0.8); Eosinophils % (auto) 4.6 % (0.0-7.0); Hematocrit 35.2 % (41.0-53.0); Hemoglobin 11.9 g/dL (13.5-17.5); Lymphocytes # (auto) 1.3 10 ^3/uL (0.4-5.4); Mean Corpuscular Hemoglobin 31.2 pg (28.0-32.0); Mean Corpuscular Hgb Conc. 33.9 g/dL (32.0-36.0); Mean Corpuscular Volume 92.2 fL (80.0-100.0); Monocytes # (auto) 0.4 10 ^3/uL (0-1.3); Monocytes % (auto) 7.5 % (0.0-12.0); Neutrophils # (auto) 3.3 10 ^3/uL (1.6-8.6); Nucleated Red Blood Cells % 0.1 %; Red Blood Cells 3.82 10^6/uL (4.5-5.90); Red Cell Distribution Width 14.8 % (11.8-14.3); White Blood Cell 5.3 10^3/uL (4.4-10.8)
[2022-04-27] MEDS: CLINDAMYCIN 600MG IV 50 ML IV SCH ×3 (05:37→22:21)
[2022-04-27 05:43] LABS: Albumin 3.1 g/dL (3.4-5.0); BUN/Creatinine Ratio 17.6; Calcium 8.5 mg/dL (8.5-10.1); Potassium 3.6 mmol/L (3.5-5.1)
[2022-04-27 05:53] LABS: Bilirubin, Total 0.2 mg/dL (0.2-1.0); Total Protein 6.1 g/dL (6.4-8.2)
[2022-04-27] MEDS: ACCU-CHEK COMFORT CURVE STRIP VI SCH ×4 (06:29→22:21)
[2022-04-27] MEDS: InsuLIN REG 1unit/0.01ml Soln (100units/ml) SC SCH ×4 (06:29→22:00)
[2022-04-27 08:00] VITALS: BP 136/72
[2022-04-27 09:00] VITALS: BP 136/72
[2022-04-27] MEDS ORDERED: cefTRIAXone 1GM/50ML D5W 50 ML IV SCH (09:00)
[2022-04-27] MEDS ORDERED: NICOTINE 7MG/24HR TOPICAL PATCH TD SCH (10:00)
[2022-04-27] MEDS ORDERED: ENOXAPARIN SOD 40 MG/0.4 ML SYRINGE SC SCH (10:00)
[2022-04-27 13:00] VITALS: BP 157/87
[2022-04-27 17:18] VITALS: BP 152/71
[2022-04-27 22:00] VITALS: BP 152/82
[2022-04-27] MEDS ORDERED: DAKINS HALF STR 0.25% (NaHypochlorite) 473 ML TOPICAL SOL TOP SCH (22:00)
[2022-04-27] MEDS: GABAPENTIN 300 MG CAP PO SCH (22:21)
[2022-04-28] MEDS: SODIUM CHLORIDE 0.9% 1,000 ML IV SCH (02:00)
[2022-04-28 05:00] VITALS: BP 129/63
[2022-04-28] MEDS: CLINDAMYCIN 600MG IV 50 ML IV SCH (06:15)
[2022-04-28] MEDS: InsuLIN REG 1unit/0.01ml Soln (100units/ml) SC SCH (06:29)
[2022-04-28] MEDS: ACCU-CHEK COMFORT CURVE STRIP VI SCH (06:29)
== END 2022-04-28 07:20 | disposition left against medical advice (07) | DRG 638 ==
LOC: ER 15:02 → OVERFLOW 18:50 → EAST 20:17
PROVIDERS: ADMIT Registered Nurse; ATTEND Family Medicine
DX: E11.621 Type 2 diabetes mellitus with foot ulcer (principal); J44.1 Chronic obstructive pulmonary disease with (acute) exacerbation; L97.329 Non-pressure chronic ulcer of left ankle with unspecified severity; L03.116 Cellulitis of left lower limb; E78.5 Hyperlipidemia, unspecified; I10 Essential (primary) hypertension; K21.9 Gastro-esophageal reflux disease without esophagitis; E11.21 Type 2 diabetes mellitus with diabetic nephropathy; M67.879 Other specified disorders of synovium and tendon, unspecified ankle and foot; F32.A Depression, unspecified; Z20.822 Contact with and (suspected) exposure to COVID-19; Z53.29 Procedure and treatment not carried out because of patient's decision for other reasons; E11.40 Type 2 diabetes mellitus with diabetic neuropathy, unspecified; I87.2 Venous insufficiency (chronic) (peripheral); L97.529 Non-pressure chronic ulcer of other part of left foot with unspecified severity; M20.42 Other hammer toe(s) (acquired), left foot; Z82.49 Family history of ischemic heart disease and other diseases of the circulatory system; Z91.013 Allergy to seafood; Z88.8 Allergy status to other drugs, medicaments and biological substances; Z83.3 Family history of diabetes mellitus; Z72.0 Tobacco use
CPT/HCPCS: 36415; 71046; 73700; 73721; 80053; 80061; 82962; 83036; 83605; 85025; 85610; 85652; 87077; 87186; 87205; 93925; 96361; 96365; G0378; J0696; J1815; J3490

== ENCOUNTER 2022-05-16 19:16 | Emergency (ER) | payer OTHER, MEDICAID ==
[~2022-05-16] VITALS: Ht 167.6 cm; Wt 78.0 kg
[2022-05-16 19:30] VITALS: BP 165/80
[2022-05-17] MEDS ORDERED: TRAZ100T3 PO (01:47)
[2022-05-17] MEDS ORDERED: ROPI-24 PO (01:47)
== END 2022-05-17 01:59 | disposition home or self-care (01) ==
LOC: ER 19:16
DX: J44.9 Chronic obstructive pulmonary disease, unspecified (principal); E11.9 Type 2 diabetes mellitus without complications; K21.9 Gastro-esophageal reflux disease without esophagitis; E78.5 Hyperlipidemia, unspecified; I10 Essential (primary) hypertension; F17.210 Nicotine dependence, cigarettes, uncomplicated; Z76.0 Encounter for issue of repeat prescription; Z88.6 Allergy status to analgesic agent
CPT/HCPCS: 82962

== ENCOUNTER 2022-06-10 16:03 | Emergency (ER) | payer OTHER, MEDICAID ==
[~2022-06-10] VITALS: Ht 167.6 cm; Wt 72.2 kg
[~2022-06-10 16:03] MED LIST changes: +ROPI-24 PO; +TRAZ100T3 PO
[2022-06-10] MEDS ORDERED: ONDANSETRON ODT 4 MG TAB PO ONE (16:30)
[2022-06-10] MEDS ORDERED: ALUM & MAG HYDROX-SIMETH LIQ(MAALOX) 30 ML PO ONE (16:30)
[2022-06-10] MEDS ORDERED: ACETAMINOPHEN 500 MG TAB PO ONE (16:30)
[2022-06-10] MEDS ORDERED: DONNATAL 5ml ORAL Elix (BELLADONNA ALK-PHENOBARB) PO ONE (16:30)
[2022-06-10] MEDS ORDERED: LIDOCAINE VISCOUS 2% 15ML UD PO ONE (16:30)
[2022-06-10 17:11] LABS: Basophils # (auto) 0.1 10 ^3/uL (0-0.2); Basophils % (auto) 0.6 % (0.0-2.0); Eosinophils # (auto) 0.2 10 ^3/uL (0-0.8); Eosinophils % (auto) 1.6 % (0.0-7.0); Hematocrit 39.4 % (41.0-53.0); Hemoglobin 13.5 g/dL (13.5-17.5); Lymphocytes # (auto) 1.8 10 ^3/uL (0.4-5.4); Lymphocytes % (auto) 17.8 % (10.0-50.0); Mean Corpuscular Hemoglobin 31.2 pg (28.0-32.0); Mean Corpuscular Hgb Conc. 34.2 g/dL (32.0-36.0); Mean Corpuscular Volume 91.3 fL (80.0-100.0); Monocytes # (auto) 0.6 10 ^3/uL (0-1.3); Neutrophils # (auto) 7.6 10 ^3/uL (1.6-8.6); Nucleated Red Blood Cells % 0.1 %; Red Blood Cells 4.31 10^6/uL (4.5-5.90); Red Cell Distribution Width 14.7 % (11.8-14.3); White Blood Cell 10.2 10^3/uL (4.4-10.8)
[2022-06-10 17:24] LABS: Albumin 3.7 g/dL (3.4-5.0); Calcium 8.8 mg/dL (8.5-10.1); Potassium 3.3 mmol/L (3.5-5.1)
[2022-06-10 17:27] LABS: Bilirubin, Total 0.5 mg/dL (0.2-1.0); Total Protein 7.2 g/dL (6.4-8.2)
[2022-06-10 20:20] LABS: Urine Bacteria NONE SEEN /hpf (None Seen); Urine Blood Negative /uL (Negative); Urine Mucus FEW (None Seen); Urine Specific Gravity 1.022 (1.001-1.035); Urine WBC 1 /hpf (0 - 3)
[2022-06-10] MEDS ORDERED: ACET-6 PO (21:11)
[2022-06-10] MEDS ORDERED: ONDA-144 PO (21:11)
[2022-06-10] MEDS ORDERED: FAMO20TA10 PO (21:11)
[2022-06-10 23:35] VITALS: BP 113/77
== END 2022-06-10 23:50 | disposition home or self-care (01) ==
LOC: ER 16:03
DX: K29.70 Gastritis, unspecified, without bleeding (principal); F17.210 Nicotine dependence, cigarettes, uncomplicated; J44.9 Chronic obstructive pulmonary disease, unspecified; E11.9 Type 2 diabetes mellitus without complications; K21.9 Gastro-esophageal reflux disease without esophagitis; E78.5 Hyperlipidemia, unspecified; I10 Essential (primary) hypertension
CPT/HCPCS: 36415; 74176; 80053; 81001; 83690; 84484; 85025; 93005; 99285; Q0162

== ENCOUNTER 2022-11-23 12:26 | Emergency (ER) | payer BC, OTHER ==
[~2022-11-23] VITALS: Ht 167.6 cm; Wt 80.0 kg
[~2022-11-23 12:26] MED LIST changes: +FAMO20TA10 PO; +ONDA-144 PO
[2022-11-23 15:58] VITALS: BP 147/79
[2022-11-23] MEDS ORDERED: ROPI2TAB6 PO (15:58)
== END 2022-11-23 15:58 | disposition home or self-care (01) ==
LOC: ER 12:26
DX: G20 Parkinson's disease (principal); I10 Essential (primary) hypertension; E11.9 Type 2 diabetes mellitus without complications; E78.5 Hyperlipidemia, unspecified; J44.9 Chronic obstructive pulmonary disease, unspecified; K21.9 Gastro-esophageal reflux disease without esophagitis; F17.210 Nicotine dependence, cigarettes, uncomplicated; Z76.0 Encounter for issue of repeat prescription; Z79.899 Other long term (current) drug therapy; Z79.1 Long term (current) use of non-steroidal anti-inflammatories (NSAID); Z79.2 Long term (current) use of antibiotics; Z88.6 Allergy status to analgesic agent; Z91.013 Allergy to seafood

== ENCOUNTER 2022-12-16 01:50 | Emergency (ER) | payer BC, OTHER ==
[~2022-12-16] VITALS: Ht 167.6 cm; Wt 77.0 kg
[2022-12-16] MEDS ORDERED: CEPH-510 PO (05:08)
[2022-12-16] MEDS ORDERED: CLIN300C8 PO (05:08)
[2022-12-16] MEDS ORDERED: ACET-1158 PO (05:08)
[2022-12-16] MEDS ORDERED: BACITRACIN TOP OINT 1 UD PKG TOP ONE (05:15)
[2022-12-16] MEDS ORDERED: ACETAMINOPHEN 325 MG TAB PO ONE (05:15)
[2022-12-16] MEDS ORDERED: cefTRIAXone SOD 1,000 MG VL IM ONE (05:15)
[2022-12-16] MEDS ORDERED: TETANUS-DIPTH-ACEL PERTUSSIS 0.5ML SYR Tdap IM ONE (05:30)
[2022-12-16 05:38] VITALS: BP 124/72
== END 2022-12-16 05:45 | disposition home or self-care (01) ==
LOC: ER 01:50
DX: L03.116 Cellulitis of left lower limb (principal); J44.9 Chronic obstructive pulmonary disease, unspecified; E11.9 Type 2 diabetes mellitus without complications; K21.9 Gastro-esophageal reflux disease without esophagitis; E78.5 Hyperlipidemia, unspecified; I10 Essential (primary) hypertension; F17.210 Nicotine dependence, cigarettes, uncomplicated; Z79.1 Long term (current) use of non-steroidal anti-inflammatories (NSAID); Z79.2 Long term (current) use of antibiotics; Z79.899 Other long term (current) drug therapy; Z88.6 Allergy status to analgesic agent; Z91.013 Allergy to seafood
CPT/HCPCS: 90471; 90715; 96372; 99284; J0696

== ENCOUNTER 2023-02-06 23:04 | Emergency (ER) | payer BC, OTHER ==
[~2023-02-06] VITALS: Ht 167.6 cm; Wt 84.8 kg
[~2023-02-06 23:04] MED LIST changes: +ACET500T58 PO; +CEPH-510 PO; +CLIN300C70 PO; -CLIN300C8 PO; +GABA-1308 PO; -GABA100C9 PO; +IBUP-1456 PO; -IBUP800T27 PO; -LISI20TA28 PO; +LISI20TA56 PO; +SERT-206 PO; -SERT50TA19 PO; +TRAZ-228 PO; -TRAZ100T3 PO
[2023-02-06 23:33] LABS: Urine WBC None Seen /hpf (0 - 3)
[2023-02-06 23:41] LABS: Urine Bacteria NONE SEEN /hpf (None Seen); Urine Blood Negative /uL (Negative); Urine Specific Gravity 1.007 (1.001-1.035)
[2023-02-06 23:57] LABS: Basophils # (auto) 0 10 ^3/uL (0-0.2); Basophils % (auto) 0.6 % (0.0-2.0); Eosinophils # (auto) 0.3 10 ^3/uL (0-0.8); Eosinophils % (auto) 4.2 % (0.0-7.0); Hematocrit 38.6 % (41.0-53.0); Hemoglobin 13.5 g/dL (13.5-17.5); Lymphocytes # (auto) 1.7 10 ^3/uL (0.4-5.4); Mean Corpuscular Hgb Conc. 34.9 g/dL (32.0-36.0); Mean Corpuscular Volume 91.8 fL (80.0-100.0); Monocytes # (auto) 0.6 10 ^3/uL (0-1.3); Monocytes % (auto) 7.6 % (0.0-12.0); Neutrophils # (auto) 4.7 10 ^3/uL (1.6-8.6); Neutrophils % (auto) 64.6 % (37.0-80.0); Nucleated Red Blood Cells % 0.2 %; Red Cell Distribution Width 14.5 % (11.8-14.3); White Blood Cell 7.3 10^3/uL (4.4-10.8)
[2023-02-07 00:09] LABS: Albumin 3.6 g/dL (3.4-5.0); Magnesium 2.2 mg/dL (1.6-2.6); Potassium 3.4 mmol/L (3.5-5.1)
[2023-02-07 00:14] LABS: Bilirubin, Total 0.4 mg/dL (0.2-1.0); Total Protein 7.3 g/dL (6.4-8.2)
[2023-02-07 00:53] LABS: BUN/Creatinine Ratio 14.1 (10.0-20.0)
[2023-02-07 05:30] VITALS: BP 172/80
[2023-02-07] MEDS ORDERED: AZIT1POW PO (06:35)
[2023-02-07] MEDS ORDERED: METH4PAK PO (06:36)
== END 2023-02-07 07:09 | disposition home or self-care (01) ==
LOC: ER 23:04
DX: J20.9 Acute bronchitis, unspecified (principal); M79.602 Pain in left arm; M79.601 Pain in right arm; R42 Dizziness and giddiness; J44.9 Chronic obstructive pulmonary disease, unspecified; F32.9 Major depressive disorder, single episode, unspecified; E11.9 Type 2 diabetes mellitus without complications; K21.9 Gastro-esophageal reflux disease without esophagitis; E78.5 Hyperlipidemia, unspecified; I10 Essential (primary) hypertension; F17.210 Nicotine dependence, cigarettes, uncomplicated; Z88.6 Allergy status to analgesic agent; Z91.013 Allergy to seafood
CPT/HCPCS: 36415; 71045; 80053; 81001; 83735; 83880; 84484; 85025; 93005

== ENCOUNTER 2023-02-13 01:41 | Emergency (ER) | payer BC, OTHER ==
[~2023-02-13] VITALS: Ht 167.6 cm; Wt 85.0 kg
[~2023-02-13 01:41] MED LIST changes: +AZIT1POW PO; +METH4PAK PO
[2023-02-13 03:23] VITALS: BP 135/84
== END 2023-02-13 03:45 | disposition home or self-care (01) ==
LOC: ER 01:41
DX: I10 Essential (primary) hypertension (principal); G47.00 Insomnia, unspecified; E11.9 Type 2 diabetes mellitus without complications; F17.210 Nicotine dependence, cigarettes, uncomplicated; Z88.6 Allergy status to analgesic agent

== ENCOUNTER 2023-02-15 13:29 | Inpatient (IN) | payer BC, OTHER ==
[~2023-02-15] VITALS: Ht 167.6 cm; Wt 85.4 kg
[2023-02-15 14:16] LABS: Basophils # (auto) 0 10 ^3/uL (0-0.2); Basophils % (auto) 0.4 % (0.0-2.0); Eosinophils # (auto) 0.2 10 ^3/uL (0-0.8); Eosinophils % (auto) 2.5 % (0.0-7.0); Hematocrit 43.8 % (41.0-53.0); Hemoglobin 14.8 g/dL (13.5-17.5); Lymphocytes # (auto) 2.1 10 ^3/uL (0.4-5.4); Lymphocytes % (auto) 25.7 % (10.0-50.0); Mean Corpuscular Hemoglobin 31.1 pg (28.0-32.0); Mean Corpuscular Hgb Conc. 33.8 g/dL (32.0-36.0); Mean Corpuscular Volume 92.2 fL (80.0-100.0); Monocytes # (auto) 0.7 10 ^3/uL (0-1.3); Monocytes % (auto) 8.8 % (0.0-12.0); Neutrophils % (auto) 62.6 % (37.0-80.0); Nucleated Red Blood Cells % 0.1 %; Red Blood Cells 4.75 10^6/uL (4.5-5.90); Red Cell Distribution Width 14.2 % (11.8-14.3)
[2023-02-15 14:34] LABS: Albumin 4.1 g/dL (3.4-5.0); Calcium 8.4 mg/dL (8.5-10.1); Potassium 3.7 mmol/L (3.5-5.1)
[2023-02-15 14:38] LABS: BUN/Creatinine Ratio 18.8 (10.0-20.0); Bilirubin, Total 0.5 mg/dL (0.2-1.0); Total Protein 7.3 g/dL (6.4-8.2)
[2023-02-15] MEDS ORDERED: IOHEXOL 350 MG/ML 100ML IJ ONE (20:32)
[2023-02-16] MEDS ORDERED: MORPHINE SULFATE INJ 2 MG/ml SYRG IV PRN ×2 (00:30)
[2023-02-16] MEDS ORDERED: NITROGLYCERIN 0.4 MG SL TAB SL PRN (00:30)
[2023-02-16] MEDS ORDERED: ONDANSETRON HCL 4 MG/2 ML VIAL IV PRN (00:30)
[2023-02-16] MEDS ORDERED: DOCUSATE SOD 100 MG CAP PO PRN (00:30)
[2023-02-16] MEDS ORDERED: ACETAMINOPHEN 325 MG TAB PO PRN (00:30)
[2023-02-16] MEDS ORDERED: HYDROcodone-ACET 5/325MG TAB PO PRN (00:30)
[2023-02-16 01:53] LABS: Urine Bacteria FEW /hpf (None Seen); Urine Blood Negative /uL (Negative); Urine WBC <1 /hpf (0 - 3)
[2023-02-16 01:54] LABS: Urine Specific Gravity > 1.050 (1.001-1.035)
[2023-02-16] MEDS ORDERED: LORazepam 2MG/ML-1ML VIAL IV PRN (09:00)
[2023-02-16] MEDS: MULTIPLE VITAMIN TAB PO SCH (09:05)
[2023-02-16] MEDS: ZINC SULFATE 220mg CAP or TAB PO SCH (09:05)
[2023-02-16] MEDS: ASCORBIC ACID 500 MG TAB PO SCH ×2 (09:05→22:15)
[2023-02-16] MEDS: ENOXAPARIN SOD 40 MG/0.4 ML SYRINGE SC SCH (09:05)
[2023-02-16 10:17] LABS: Cholesterol 130 mg/dL (< 200); HDL Cholesterol 43 mg/dL (40-59); LDL Cholesterol 74 mg/dL (< 100); Triglycerides 135 mg/dL (< 150)
[2023-02-16 10:24] LABS: Folate (Folic Acid) 9.67 ng/mL (5.38-24)
[2023-02-16] MEDS ORDERED: DEXTROSE (50%) 50ML SYRG IV PRN (14:00)
[2023-02-16] MEDS: ACCU-CHEK COMFORT CURVE STRIP VI SCH ×2 (17:06→22:00)
[2023-02-16] MEDS: InsuLIN REG 1unit/0.01ml Soln (100units/ml) SC SCH ×2 (17:07→22:00)
[2023-02-16 19:00] VITALS: BP 163/70
[2023-02-16 20:00] VITALS: BP 163/70
[2023-02-16 20:59] VITALS: BP 134/54
[2023-02-16] MEDS: BUSPIRONE PO SCH (22:00)
[2023-02-16] MEDS: FAMOTIDINE 20 MG TAB PO SCH (22:15)
[2023-02-16] MEDS: ATORVASTATIN 20 MG TAB PO SCH (22:15)
[2023-02-17 05:16] VITALS: BP 140/54
[2023-02-17] MEDS: ACCU-CHEK COMFORT CURVE STRIP VI SCH ×4 (06:38→22:10)
[2023-02-17] MEDS: InsuLIN REG 1unit/0.01ml Soln (100units/ml) SC SCH ×4 (06:41→22:00)
[2023-02-17 06:59] LABS: Basophils # (auto) 0 10 ^3/uL (0-0.2); Basophils % (auto) 0.3 % (0.0-2.0); Eosinophils # (auto) 0.2 10 ^3/uL (0-0.8); Eosinophils % (auto) 2.2 % (0.0-7.0); Hematocrit 39.3 % (41.0-53.0); Hemoglobin 13.4 g/dL (13.5-17.5); Lymphocytes # (auto) 1.3 10 ^3/uL (0.4-5.4); Lymphocytes % (auto) 16.7 % (10.0-50.0); Mean Corpuscular Hemoglobin 31.3 pg (28.0-32.0); Mean Corpuscular Hgb Conc. 34.2 g/dL (32.0-36.0); Mean Corpuscular Volume 91.5 fL (80.0-100.0); Monocytes # (auto) 0.6 10 ^3/uL (0-1.3); Monocytes % (auto) 8.4 % (0.0-12.0); Neutrophils # (auto) 5.5 10 ^3/uL (1.6-8.6); Neutrophils % (auto) 72.4 % (37.0-80.0); Red Blood Cells 4.29 10^6/uL (4.5-5.90); White Blood Cell 7.6 10^3/uL (4.4-10.8)
[2023-02-17 07:21] LABS: Albumin 3.8 g/dL (3.4-5.0); Calcium 8.6 mg/dL (8.5-10.1); Potassium 3.5 mmol/L (3.5-5.1)
[2023-02-17 07:30] LABS: BUN/Creatinine Ratio 17.4 (10.0-20.0); Bilirubin, Total 0.7 mg/dL (0.2-1.0); Total Protein 6.6 g/dL (6.4-8.2)
[2023-02-17 09:00] VITALS: BP 173/80
[2023-02-17] MEDS: PARoxetine 20 MG TAB PO SCH (09:16)
[2023-02-17] MEDS: MULTIPLE VITAMIN TAB PO SCH (09:16)
[2023-02-17] MEDS: ENOXAPARIN SOD 40 MG/0.4 ML SYRINGE SC SCH (09:16)
[2023-02-17] MEDS: FAMOTIDINE 20 MG TAB PO SCH ×2 (09:16→22:10)
[2023-02-17] MEDS: ASCORBIC ACID 500 MG TAB PO SCH ×2 (09:17→22:10)
[2023-02-17] MEDS: ZINC SULFATE 220mg CAP or TAB PO SCH (09:17)
[2023-02-17 14:29] VITALS: BP 145/76
[2023-02-17 16:19] VITALS: BP 146/80
[2023-02-17 22:00] VITALS: BP 142/81
[2023-02-17] MEDS: BUSPIRONE PO SCH (22:00)
[2023-02-17] MEDS: ATORVASTATIN 20 MG TAB PO SCH (22:10)
[2023-02-18 05:00] VITALS: BP 132/71
[2023-02-18] MEDS: ACCU-CHEK COMFORT CURVE STRIP VI SCH ×3 (06:51→17:00)
[2023-02-18] MEDS: InsuLIN REG 1unit/0.01ml Soln (100units/ml) SC SCH ×3 (06:54→19:12)
[2023-02-18] MEDS: ENOXAPARIN SOD 40 MG/0.4 ML SYRINGE SC SCH (08:57)
[2023-02-18] MEDS: FAMOTIDINE 20 MG TAB PO SCH (08:58)
[2023-02-18] MEDS: ZINC SULFATE 220mg CAP or TAB PO SCH (08:58)
[2023-02-18] MEDS: ASCORBIC ACID 500 MG TAB PO SCH (08:58)
[2023-02-18] MEDS: MULTIPLE VITAMIN TAB PO SCH (08:58)
[2023-02-18] MEDS: PARoxetine 20 MG TAB PO SCH (08:58)
[2023-02-18 09:19] VITALS: BP 169/75
[2023-02-18 12:29] VITALS: BP 164/82
[2023-02-18] MEDS ORDERED: NIFE1TAB36 PO (12:44)
[2023-02-18] MEDS ORDERED: NIFEdipine ER 30 MG TAB PO ONE (13:15)
[2023-02-18 17:00] VITALS: BP_SYST 129; BP_SYST 175; BP_DIAS 80; BP_DIAS 82
[2023-02-18 20:56] VITALS: BP 155/96
[2023-02-19] MEDS ORDERED: NIFEdipine ER 30 MG TAB PO SCH (10:00)
== END 2023-02-18 21:45 | disposition home or self-care (01) | DRG 948 ==
LOC: ER 13:29 → TELE 02-16 00:30 → TELE-EAST 02-16 18:26
PROVIDERS: ADMIT Internal Medicine; ATTEND Internal Medicine
DX: R53.1 Weakness (principal); I50.32 Chronic diastolic (congestive) heart failure; R00.2 Palpitations; F17.210 Nicotine dependence, cigarettes, uncomplicated; I11.0 Hypertensive heart disease with heart failure; J45.909 Unspecified asthma, uncomplicated; L97.509 Non-pressure chronic ulcer of other part of unspecified foot with unspecified severity; E11.621 Type 2 diabetes mellitus with foot ulcer; E11.40 Type 2 diabetes mellitus with diabetic neuropathy, unspecified; E11.51 Type 2 diabetes mellitus with diabetic peripheral angiopathy without gangrene; Z83.3 Family history of diabetes mellitus; Z88.6 Allergy status to analgesic agent; Z82.49 Family history of ischemic heart disease and other diseases of the circulatory system
CPT/HCPCS: 36415; 70450; 70496; 70551; 71045; 80053; 80061; 81001; 82607; 82746; 82962; 83880; 84155; 84165; 84443; 84484; 85025; 93005; 93306; 96372; 96374; 96375; 97163; 99291; G0378; J1815; J2405

== ENCOUNTER 2023-02-19 22:27 | Inpatient (IN) | payer BC, OTHER ==
[~2023-02-19] VITALS: Ht 167.6 cm; Wt 87.5 kg
[~2023-02-19 22:27] MED LIST changes: +NIFE1TAB36 PO
[2023-02-19 22:56] LABS: Basophils # (auto) 0.1 10 ^3/uL (0-0.2); Basophils % (auto) 0.6 % (0.0-2.0); Eosinophils # (auto) 0.1 10 ^3/uL (0-0.8); Eosinophils % (auto) 1.6 % (0.0-7.0); Hematocrit 42.1 % (41.0-53.0); Hemoglobin 14.2 g/dL (13.5-17.5); Lymphocytes # (auto) 1.2 10 ^3/uL (0.4-5.4); Lymphocytes % (auto) 13.8 % (10.0-50.0); Mean Corpuscular Hemoglobin 31.3 pg (28.0-32.0); Mean Corpuscular Hgb Conc. 33.7 g/dL (32.0-36.0); Mean Corpuscular Volume 92.9 fL (80.0-100.0); Monocytes # (auto) 0.8 10 ^3/uL (0-1.3); Monocytes % (auto) 9.5 % (0.0-12.0); Neutrophils # (auto) 6.6 10 ^3/uL (1.6-8.6); Neutrophils % (auto) 74.5 % (37.0-80.0); Red Blood Cells 4.53 10^6/uL (4.5-5.90); Red Cell Distribution Width 14.4 % (11.8-14.3); White Blood Cell 8.8 10^3/uL (4.4-10.8)
[2023-02-19 23:16] LABS: Urine Bacteria NONE SEEN /hpf (None Seen); Urine Blood Negative /uL (Negative); Urine Specific Gravity 1.007 (1.001-1.035); Urine WBC <1 /hpf (0 - 3)
[2023-02-19 23:23] LABS: Albumin 3.9 g/dL (3.4-5.0); BUN/Creatinine Ratio 12.1 (10.0-20.0); Calcium 9.1 mg/dL (8.5-10.1); Potassium 3.9 mmol/L (3.5-5.1)
[2023-02-19 23:26] LABS: Bilirubin, Total 0.7 mg/dL (0.2-1.0); Total Protein 7.6 g/dL (6.4-8.2)
[2023-02-20] MEDS ORDERED: ASPirin 325 MG TAB PO ONE
[2023-02-20 00:16] LABS: INR 0.99 (0.9-1.15); Partial Thromboplastin Time 32.5 sec (24.6-33.4)
[2023-02-20] MEDS ORDERED: NITROGLYCERIN 0.4 MG SL TAB SL ONE (00:45)
[2023-02-20] MEDS ORDERED: ONDANSETRON HCL 4 MG/2 ML VIAL IV PRN (01:45)
[2023-02-20] MEDS ORDERED: ACETAMINOPHEN 325 MG TAB PO PRN (01:45)
[2023-02-20] MEDS ORDERED: DOCUSATE SOD 100 MG CAP PO PRN (01:45)
[2023-02-20] MEDS ORDERED: MORPHINE SULFATE INJ 2 MG/ml SYRG IV PRN (03:15)
[2023-02-20] MEDS ORDERED: NITROGLYCERIN 0.4 MG SL TAB SL PRN (03:15)
[2023-02-20] MEDS: SODIUM CHLORIDE 0.9% 1,000 ML IV SCH (04:35)
[2023-02-20] MEDS: HYDROcodone-ACET 5/325MG TAB PO PRN (05:15)
[2023-02-20] MEDS: CLOPIDOGREL BISULFATE 75 MG TAB PO SCH (10:55)
[2023-02-20 14:19] LABS: Basophils # (auto) 0 10 ^3/uL (0-0.2); Basophils % (auto) 0.5 % (0.0-2.0); Eosinophils # (auto) 0.1 10 ^3/uL (0-0.8); Eosinophils % (auto) 2.3 % (0.0-7.0); Hematocrit 39.2 % (41.0-53.0); Hemoglobin 13.3 g/dL (13.5-17.5); Lymphocytes # (auto) 0.7 10 ^3/uL (0.4-5.4); Mean Corpuscular Hemoglobin 31.2 pg (28.0-32.0); Mean Corpuscular Hgb Conc. 33.8 g/dL (32.0-36.0); Mean Corpuscular Volume 92.5 fL (80.0-100.0); Monocytes # (auto) 0.9 10 ^3/uL (0-1.3); Monocytes % (auto) 13.9 % (0.0-12.0); Neutrophils # (auto) 4.5 10 ^3/uL (1.6-8.6); Neutrophils % (auto) 72.3 % (37.0-80.0); Nucleated Red Blood Cells % 0.1 %; Red Blood Cells 4.24 10^6/uL (4.5-5.90); Red Cell Distribution Width 14.7 % (11.8-14.3); White Blood Cell 6.3 10^3/uL (4.4-10.8)
[2023-02-20 14:38] LABS: Albumin 3.6 g/dL (3.4-5.0); Calcium 8.6 mg/dL (8.5-10.1); Potassium 3.7 mmol/L (3.5-5.1)
[2023-02-20 14:41] LABS: BUN/Creatinine Ratio 13.8 (10.0-20.0); Bilirubin, Total 0.6 mg/dL (0.2-1.0); Total Protein 7.1 g/dL (6.4-8.2)
[2023-02-20] MEDS: ATORVASTATIN 20 MG TAB PO SCH (22:35)
[2023-02-20] MEDS ORDERED: DEXTROSE (50%) 50ML SYRG IV PRN (22:45)
[2023-02-21 01:25] VITALS: BP 120/71
[2023-02-21] MEDS: HYDROcodone-ACET 5/325MG TAB PO PRN (03:53)
[2023-02-21 05:00] VITALS: BP 142/72
[2023-02-21 06:05] LABS: Basophils # (auto) 0 10 ^3/uL (0-0.2); Basophils % (auto) 0.4 % (0.0-2.0); Eosinophils # (auto) 0.1 10 ^3/uL (0-0.8); Eosinophils % (auto) 2.1 % (0.0-7.0); Hematocrit 37.7 % (41.0-53.0); Lymphocytes # (auto) 0.7 10 ^3/uL (0.4-5.4); Lymphocytes % (auto) 10.2 % (10.0-50.0); Mean Corpuscular Hemoglobin 31.9 pg (28.0-32.0); Mean Corpuscular Hgb Conc. 34.6 g/dL (32.0-36.0); Mean Corpuscular Volume 92.1 fL (80.0-100.0); Monocytes # (auto) 0.9 10 ^3/uL (0-1.3); Monocytes % (auto) 13.3 % (0.0-12.0); Neutrophils # (auto) 5.2 10 ^3/uL (1.6-8.6); Nucleated Red Blood Cells % 0.1 %; Red Blood Cells 4.09 10^6/uL (4.5-5.90); Red Cell Distribution Width 14.1 % (11.8-14.3)
[2023-02-21 06:09] LABS: Albumin 3.4 g/dL (3.4-5.0); Calcium 8.9 mg/dL (8.5-10.1); Potassium 3.8 mmol/L (3.5-5.1)
[2023-02-21 06:12] LABS: BUN/Creatinine Ratio 11.2 (10.0-20.0)
[2023-02-21 06:15] LABS: Bilirubin, Total 0.5 mg/dL (0.2-1.0); Total Protein 6.6 g/dL (6.4-8.2)
[2023-02-21] MEDS: ACCU-CHEK COMFORT CURVE STRIP VI SCH ×4 (06:39→21:47)
[2023-02-21] MEDS: InsuLIN REG 1unit/0.01ml Soln (100units/ml) SC SCH ×4 (06:44→21:47)
[2023-02-21 09:00] VITALS: BP 139/77
[2023-02-21] MEDS: CLOPIDOGREL BISULFATE 75 MG TAB PO SCH (09:49)
[2023-02-21] MEDS: SODIUM CHLORIDE 0.9% 1,000 ML IV SCH (12:37)
[2023-02-21 13:00] VITALS: BP 135/65
[2023-02-21 17:00] VITALS: BP 138/78
[2023-02-21] MEDS: ATORVASTATIN 20 MG TAB PO SCH (21:46)
[2023-02-21 22:00] VITALS: BP 145/85
[2023-02-22] MEDS: SODIUM CHLORIDE 0.9% 1,000 ML IV SCH ×2 (03:45→20:25)
[2023-02-22 05:00] VITALS: BP 144/71
[2023-02-22] MEDS: InsuLIN REG 1unit/0.01ml Soln (100units/ml) SC SCH ×4 (06:25→21:28)
[2023-02-22] MEDS: ACCU-CHEK COMFORT CURVE STRIP VI SCH ×4 (06:55→21:29)
[2023-02-22 09:00] VITALS: BP 143/75
[2023-02-22] MEDS: CLOPIDOGREL BISULFATE 75 MG TAB PO SCH (10:19)
[2023-02-22 13:00] VITALS: BP 112/73
[2023-02-22 17:00] VITALS: BP 148/86
[2023-02-22] MEDS: FAMOTIDINE 20 MG TAB PO SCH (19:00)
[2023-02-22] MEDS: ATORVASTATIN 20 MG TAB PO SCH (21:11)
[2023-02-22 22:00] VITALS: BP 153/75
[2023-02-23] VITALS (9 sets, daily range): BP systolic 133–173; BP diastolic 51–92
[2023-02-23] MEDS: HYDROcodone-ACET 5/325MG TAB PO PRN (05:14)
[2023-02-23] MEDS: InsuLIN REG 1unit/0.01ml Soln (100units/ml) SC SCH ×4 (05:59→22:00)
[2023-02-23] MEDS: ACCU-CHEK COMFORT CURVE STRIP VI SCH ×4 (06:14→22:00)
[2023-02-23] MEDS ORDERED: IODIXANOL 320MG/ML 100ML BTL IV ONE ×2 (09:32→10:43)
[2023-02-23] MEDS ORDERED: LIDOCAINE 2%HCL (LOCAL ANESTH.) INJ 20ML MDV ONE (09:32)
[2023-02-23] MEDS ORDERED: ANGIOMAX 250 MG VIAL IV ONE (10:05)
[2023-02-23] MEDS ORDERED: ONDANSETRON HCL 4 MG/2 ML VIAL ONE (10:06)
[2023-02-23] MEDS ORDERED: diphenhdrAMINE HCL 50 MG/1 ML VL ONE (10:06)
[2023-02-23] MEDS ORDERED: fentaNYL CITRATE 100 MCG/2 ML VL ONE (10:06)
[2023-02-23] MEDS ORDERED: SODIUM CHL 0.9% 50 ML ONE (10:06)
[2023-02-23] MEDS ORDERED: VERAPAMIL 2.5MG/ML INJ 2ML VIAL IV ONE (10:06)
[2023-02-23] MEDS ORDERED: methylPREDNISolone SOD SUCC 125 MG/2 ML VL ONE (10:45)
[2023-02-23] MEDS ORDERED: FAMOTIDINE (10MG/ML) 2ML VL IV ONE (10:45)
[2023-02-23] MEDS ORDERED: ASPirin 325 MG TAB ONE (10:54)
[2023-02-23] MEDS ORDERED: TICAGRELOR 90 MG TAB ONE (10:54)
[2023-02-23] MEDS: CLOPIDOGREL BISULFATE 75 MG TAB PO SCH (11:30)
[2023-02-23] MEDS: SODIUM CHLORIDE 0.9% 1,000 ML IV SCH (13:05)
[2023-02-23] MEDS: FAMOTIDINE 20 MG TAB PO SCH (17:32)
[2023-02-23] MEDS ORDERED: CLOPIDOGREL BISULFATE 75 MG TAB PO ONE (18:00)
[2023-02-23] MEDS: ATORVASTATIN 20 MG TAB PO SCH (22:36)
[2023-02-24] MEDS ORDERED: hydrALAZINE HCL 20 MG/ML VL IV ONE ×2 (00:30→05:30)
[2023-02-24 05:00] VITALS: BP 160/67
[2023-02-24] MEDS: SODIUM CHLORIDE 0.9% 1,000 ML IV SCH (05:45)
[2023-02-24] MEDS: ACCU-CHEK COMFORT CURVE STRIP VI SCH ×2 (06:28→11:30)
[2023-02-24] MEDS: InsuLIN REG 1unit/0.01ml Soln (100units/ml) SC SCH ×2 (06:52→11:30)
[2023-02-24] MEDS ORDERED: RIVAROXABAN 2.5 MG TAB PO SCH (08:00)
[2023-02-24 08:35] VITALS: BP 146/65
[2023-02-24] MEDS: FAMOTIDINE 20 MG TAB PO SCH (08:47)
[2023-02-24] MEDS: CLOPIDOGREL BISULFATE 75 MG TAB PO SCH (08:48)
[2023-02-24] MEDS ORDERED: RIVA10TA PO (08:59)
[2023-02-24] MEDS ORDERED: ATO40T PO (08:59)
[2023-02-24] MEDS ORDERED: CLOP75TA28 PO (08:59)
[2023-02-24 13:00] VITALS: BP 135/60
[2023-02-24 14:32] VITALS: BP 135/60
== END 2023-02-24 16:00 | disposition home or self-care (01) | DRG 247 ==
LOC: ER 22:33 → TELE 02-20 03:15 → TELE-CENTR 02-20 23:29
PROVIDERS: ADMIT Nurse Practitioner Family; ATTEND Family Medicine
PROC: 027034Z Dilation of Coronary Artery, One Artery with Drug-eluting Intraluminal Device, Percutaneous Approach (ICD-10-PCS; principal; 2023-02-23)
PROC: 4A023N7 Measurement of Cardiac Sampling and Pressure, Left Heart, Percutaneous Approach (ICD-10-PCS; 2023-02-23)
PROC: B211YZZ Fluoroscopy of Multiple Coronary Arteries using Other Contrast (ICD-10-PCS; 2023-02-23)
DX: I25.110 Atherosclerotic heart disease of native coronary artery with unstable angina pectoris (principal); E78.00 Pure hypercholesterolemia, unspecified; F41.9 Anxiety disorder, unspecified; I10 Essential (primary) hypertension; F17.210 Nicotine dependence, cigarettes, uncomplicated; F32.A Depression, unspecified; J45.909 Unspecified asthma, uncomplicated; R79.89 Other specified abnormal findings of blood chemistry; E11.9 Type 2 diabetes mellitus without complications; Z88.6 Allergy status to analgesic agent; Z79.01 Long term (current) use of anticoagulants; Z79.02 Long term (current) use of antithrombotics/antiplatelets; Z82.49 Family history of ischemic heart disease and other diseases of the circulatory system; Z83.3 Family history of diabetes mellitus
CPT/HCPCS: 36415; 71045; 71275; 80053; 81001; 82962; 83690; 83880; 84484; 85025; 85379; 85610; 85730; 87081; 92928; 93005; 93458; G0378; J1815; J2405; J3490; Q9967

== ENCOUNTER 2023-03-23 18:19 | Inpatient (IN) | payer OTHER ==
[~2023-03-23] VITALS: Ht 167.6 cm; Wt 83.1 kg
[~2023-03-23 18:19] MED LIST changes: -ALBU108A5 IN; +ATO40T PO; -ATOR80TA PO; -BUSP30TA PO; +CLOP75TA28 PO; -DULO20CA PO; -GINK60CA2 PO; -LISI20TA56 PO; -METO25TA5 PO; -PAR20T GT; -POM IN; -POM PO; +RIVA10TA PO; -SERT-206 PO; -VALE250C2 PO; -[UNRECOGNIZED DRUG - CODE] PO
[2023-03-23 22:35] LABS: Basophils # (auto) 0.2 10 ^3/uL (0-0.2); Basophils % (auto) 2.7 % (0.0-2.0); Eosinophils # (auto) 0.3 10 ^3/uL (0-0.8); Eosinophils % (auto) 3.7 % (0.0-7.0); Hemoglobin 13.9 g/dL (13.5-17.5); Lymphocytes # (auto) 1.4 10 ^3/uL (0.4-5.4); Lymphocytes % (auto) 18.3 % (10.0-50.0); Mean Corpuscular Hemoglobin 31.2 pg (28.0-32.0); Mean Corpuscular Hgb Conc. 33.9 g/dL (32.0-36.0); Mean Corpuscular Volume 91.9 fL (80.0-100.0); Monocytes # (auto) 0.5 10 ^3/uL (0-1.3); Monocytes % (auto) 6.9 % (0.0-12.0); Neutrophils # (auto) 5.2 10 ^3/uL (1.6-8.6); Neutrophils % (auto) 68.4 % (37.0-80.0); Red Blood Cells 4.46 10^6/uL (4.5-5.90); Red Cell Distribution Width 14.9 % (11.8-14.3); White Blood Cell 7.6 10^3/uL (4.4-10.8)
[2023-03-23 22:57] LABS: Calcium 8.9 mg/dL (8.5-10.1); Potassium 3.7 mmol/L (3.5-5.1)
[2023-03-23 23:01] LABS: BUN/Creatinine Ratio 12.5 (10.0-20.0); Bilirubin, Total 0.4 mg/dL (0.2-1.0); Total Protein 7.8 g/dL (6.4-8.2)
[2023-03-24] MEDS ORDERED: ACETAMINOPHEN 325 MG TAB PO PRN (08:45)
[2023-03-24] MEDS ORDERED: MORPHINE SULFATE INJ 2 MG/ml SYRG IV PRN (08:45)
[2023-03-24] MEDS ORDERED: NITROGLYCERIN 0.4 MG SL TAB SL PRN (08:45)
[2023-03-24] MEDS ORDERED: MECLIZINE HCL 25 MG TAB PO PRN (08:45)
[2023-03-24] MEDS ORDERED: MECLIZINE HCL 25 MG TAB PO ONE (08:45)
[2023-03-24] MEDS: SODIUM CHLORIDE 0.9% 1,000 ML IV SCH ×2 (08:45→22:44)
[2023-03-24] MEDS ORDERED: DEXTROSE (50%) 50ML SYRG IV PRN (09:00)
[2023-03-24 09:27] LABS: Urine Bacteria NONE SEEN /hpf (None Seen); Urine Blood Negative /uL (Negative); Urine Mucus FEW (None Seen); Urine Specific Gravity 1.028 (1.001-1.035); Urine WBC 3 /hpf (0 - 3)
[2023-03-24 09:50] VITALS: BP 104/54; PULSE 58; RESP 16; O2SAT 96
[2023-03-24] MEDS ORDERED: ENOXAPARIN SOD 40 MG/0.4 ML SYRINGE SC SCH (10:00)
[2023-03-24 10:06] LABS: Alcohol, Urine < 3.0 mg/dL (0-10); Amphetamine Screen, Urine NEGATIVE (NEGATIVE); Barbiturate Scree,Urine NEGATIVE (NEGATIVE); Benzodiazephine Screen, Urine NEGATIVE (NEGATIVE); Cannabinoid Screen, Urine NEGATIVE (NEGATIVE); Cocaine Screen, Urine NEGATIVE (NEGATIVE); Opiate Scree,Urine NEGATIVE (NEGATIVE); Phencyclidine Screen, Urine NEGATIVE (NEGATIVE)
[2023-03-24] MEDS: CLOPIDOGREL BISULFATE 75 MG TAB PO SCH (10:59)
[2023-03-24] MEDS: RIVAROXABAN 2.5 MG TAB PO SCH ×2 (11:30→22:46)
[2023-03-24] MEDS: ACCU-CHEK COMFORT CURVE STRIP VI SCH ×3 (11:31→22:33)
[2023-03-24] MEDS: InsuLIN REG 1unit/0.01ml Soln (100units/ml) SC SCH ×3 (11:59→22:46)
[2023-03-24] MEDS: ALBUTEROL SULF 2.5 MG/0.5ML(0.5%) NEB SOLN NEB PRN (14:13)
[2023-03-24 14:20] VITALS: PULSE 55; RESP 18; O2SAT 94
[2023-03-24 14:26] VITALS: PULSE 55; RESP 19; O2SAT 94
[2023-03-24] MEDS: ATORVASTATIN 20 MG TAB PO SCH (18:33)
[2023-03-24 18:35] VITALS: O2SAT 97
[2023-03-24 19:30] VITALS: PULSE 69; RESP 20; O2SAT 97
[2023-03-24] MEDS ORDERED: LORazepam 2MG/ML-1ML VIAL IV PRN (19:30)
[2023-03-24] MEDS ORDERED: diphenhdrAMINE HCL 25 MG CAP PO ONE (22:30)
[2023-03-24] MEDS: hydrOXYzine HCL 10 MG TAB PO SCH (22:46)
[2023-03-25] VITALS (7 sets, daily range): BP systolic 152–181; BP diastolic 85–89; PULSE 54–75; RESP 16–18; TEMP 97.5; O2SAT 97–99
[2023-03-25 05:32] LABS: Basophils # (auto) 0 10 ^3/uL (0-0.2); Basophils % (auto) 0.4 % (0.0-2.0); Eosinophils # (auto) 0.2 10 ^3/uL (0-0.8); Eosinophils % (auto) 3.1 % (0.0-7.0); Hematocrit 37.9 % (41.0-53.0); Hemoglobin 12.6 g/dL (13.5-17.5); Lymphocytes # (auto) 1.2 10 ^3/uL (0.4-5.4); Lymphocytes % (auto) 16.7 % (10.0-50.0); Mean Corpuscular Hemoglobin 31.2 pg (28.0-32.0); Mean Corpuscular Hgb Conc. 33.3 g/dL (32.0-36.0); Mean Corpuscular Volume 93.7 fL (80.0-100.0); Monocytes # (auto) 0.5 10 ^3/uL (0-1.3); Neutrophils # (auto) 5.1 10 ^3/uL (1.6-8.6); Neutrophils % (auto) 72.8 % (37.0-80.0); Potassium 3.5 mmol/L (3.5-5.1); Red Blood Cells 4.04 10^6/uL (4.5-5.90); Red Cell Distribution Width 15.1 % (11.8-14.3)
[2023-03-25 05:40] LABS: Albumin 3.5 g/dL (3.4-5.0); BUN/Creatinine Ratio 16.5 (10.0-20.0); Bilirubin, Total 0.4 mg/dL (0.2-1.0); Calcium 8.5 mg/dL (8.5-10.1); Total Protein 6.6 g/dL (6.4-8.2)
[2023-03-25] MEDS: ACCU-CHEK COMFORT CURVE STRIP VI SCH ×4 (06:45→22:24)
[2023-03-25] MEDS: InsuLIN REG 1unit/0.01ml Soln (100units/ml) SC SCH ×4 (06:47→22:00)
[2023-03-25] MEDS ORDERED: GLUCAGON EMERG KIT 1mg/1ml IV ONE (08:15)
[2023-03-25] MEDS: CLOPIDOGREL BISULFATE 75 MG TAB PO SCH (11:02)
[2023-03-25] MEDS: RIVAROXABAN 2.5 MG TAB PO SCH ×2 (11:02→22:25)
[2023-03-25] MEDS: SODIUM CHLORIDE 0.9% 1,000 ML IV SCH (11:25)
[2023-03-25] MEDS ORDERED: ONDANSETRON HCL 4 MG/2 ML VIAL IV PRN (11:30)
[2023-03-25] MEDS: MECLIZINE HCL 25 MG TAB PO SCH (19:07)
[2023-03-25] MEDS: ATORVASTATIN 20 MG TAB PO SCH (19:08)
[2023-03-25] MEDS: hydrOXYzine HCL 10 MG TAB PO SCH (22:25)
[2023-03-26] VITALS (8 sets, daily range): BP systolic 119–156; BP diastolic 60–72; PULSE 53–69; RESP 18–20; TEMP 36.5; O2SAT 95–98
[2023-03-26] MEDS: SODIUM CHLORIDE 0.9% 1,000 ML IV SCH ×2 (00:45→14:05)
[2023-03-26] MEDS: MECLIZINE HCL 25 MG TAB PO SCH ×2 (01:41→09:35)
[2023-03-26] MEDS: ALBUTEROL SULF 2.5 MG/0.5ML(0.5%) NEB SOLN NEB PRN (02:36)
[2023-03-26] MEDS ORDERED: hydrALAZINE HCL 20 MG/ML VL IV PRN (05:00)
[2023-03-26] MEDS: ACCU-CHEK COMFORT CURVE STRIP VI SCH ×3 (06:24→17:00)
[2023-03-26] MEDS: InsuLIN REG 1unit/0.01ml Soln (100units/ml) SC SCH ×3 (06:24→17:00)
[2023-03-26] MEDS: CLOPIDOGREL BISULFATE 75 MG TAB PO SCH (09:35)
[2023-03-26] MEDS: RIVAROXABAN 2.5 MG TAB PO SCH (10:13)
[2023-03-26] MEDS ORDERED: MECL1TAB32 PO (14:18)
== END 2023-03-26 17:20 | disposition home or self-care (01) | DRG 149 ==
LOC: ER 18:19 → TELE 03-24 08:42 → TELE-CENTR 03-25 18:00
PROVIDERS: ADMIT Nurse Practitioner Acute Care; ATTEND Nurse Practitioner Acute Care
DX: H81.10 Benign paroxysmal vertigo, unspecified ear (principal); I50.32 Chronic diastolic (congestive) heart failure; I25.10 Atherosclerotic heart disease of native coronary artery without angina pectoris; E78.00 Pure hypercholesterolemia, unspecified; F41.9 Anxiety disorder, unspecified; J45.909 Unspecified asthma, uncomplicated; F17.210 Nicotine dependence, cigarettes, uncomplicated; D18.1 Lymphangioma, any site; E11.621 Type 2 diabetes mellitus with foot ulcer; I11.0 Hypertensive heart disease with heart failure; E66.9 Obesity, unspecified; E11.42 Type 2 diabetes mellitus with diabetic polyneuropathy; L97.519 Non-pressure chronic ulcer of other part of right foot with unspecified severity; R00.1 Bradycardia, unspecified; Z88.6 Allergy status to analgesic agent; Z95.5 Presence of coronary angioplasty implant and graft; Z91.013 Allergy to seafood; Z83.3 Family history of diabetes mellitus; Z82.49 Family history of ischemic heart disease and other diseases of the circulatory system; Z68.29 Body mass index [BMI] 29.0-29.9, adult
CPT/HCPCS: 36415; 70450; 70551; 71045; 80053; 80307; 81001; 82962; 83036; 83880; 84484; 85025; 87081; 93005; 93017; 93886; 94640; 97110; 97116; 97163; 97530; G0378; J1815; J2405

== ENCOUNTER 2023-07-02 03:16 | Inpatient (IN) | payer OTHER ==
[~2023-07-02] VITALS: Ht 167.6 cm; Wt 85.0 kg
[~2023-07-02 03:16] MED LIST changes: +BACDST PO; +IBUP-1455 PO; +MECL1TAB32 PO
[2023-07-02] MEDS ORDERED: IPRATROPIUM BROM 0.5 MG/2.5ML INH SOL NEB ONE (04:30)
[2023-07-02] MEDS ORDERED: ALBUTEROL SULF 2.5 MG/0.5ML(0.5%) NEB SOLN NEB ONE (04:30)
[2023-07-02 04:31] LABS: Basophils # (auto) 0 10 ^3/uL (0-0.2); Basophils % (auto) 0.5 % (0.0-2.0); Eosinophils # (auto) 0.4 10 ^3/uL (0-0.8); Eosinophils % (auto) 4.8 % (0.0-7.0); Hematocrit 41.8 % (41.0-53.0); Hemoglobin 14.3 g/dL (13.5-17.5); Lymphocytes # (auto) 2.1 10 ^3/uL (0.4-5.4); Lymphocytes % (auto) 24.2 % (10.0-50.0); Mean Corpuscular Hemoglobin 31.5 pg (28.0-32.0); Mean Corpuscular Hgb Conc. 34.2 g/dL (32.0-36.0); Mean Corpuscular Volume 92.2 fL (80.0-100.0); Monocytes # (auto) 0.9 10 ^3/uL (0-1.3); Neutrophils # (auto) 5.3 10 ^3/uL (1.6-8.6); Neutrophils % (auto) 60.5 % (37.0-80.0); Red Blood Cells 4.54 10^6/uL (4.5-5.90); Red Cell Distribution Width 14.2 % (11.8-14.3); White Blood Cell 8.7 10^3/uL (4.4-10.8)
[2023-07-02 04:44] LABS: Alanine Aminotransferase 28 U/L (7-40); Albumin 4.8 g/dL (3.2-4.8); Alkaline Phosphatase 110 U/L (46-116); Anion Gap 8 (5-15); Aspartate Aminotransferase 15 U/L (13-40); BUN/Creatinine Ratio 8.4 (10.0-20.0); Bilirubin, Total 0.5 mg/dL (0.2-1.0); Blood Urea Nitrogen 9 mg/dL (9-23); Calcium 10.2 mg/dL (8.7-10.4); Carbon Dioxide 24 mmol/L (20-30); Chloride 107 mmol/L (98-107); Glucose 117 mg/dL (74-106); Potassium 3.9 mmol/L (3.5-5.1); Sodium 139 mmol/L (136-145); Total Protein 7.7 g/dL (5.7-8.2)
[2023-07-02 04:52] LABS: INR 0.98 (0.9-1.15); Partial Thromboplastin Time 31.4 SEC (24.5-34.5); Prothrombin Time 10.3 sec (9.3-11.8)
[2023-07-02 04:55] LABS: COVID19 ANTIGEN SOFIA FIA NEGATIVE (NEGATIVE); Rapid Influenza A Negative (Negative); Rapid Influenza B Negative (Negative)
[2023-07-02 07:29] LABS: Urine Bacteria NONE SEEN /hpf (None Seen); Urine Blood Negative /uL (Negative); Urine Clarity Clear (Clear); Urine Color Colorless (Yellow); Urine Protein, UAD Negative (Negative); Urine Specific Gravity 1.008 (1.001-1.035); Urine Urobilinogen Normal (Negative); Urine WBC 1 /hpf (0 - 3)
[2023-07-02] MEDS ORDERED: PIPERACILLIN-TAZOB 3.375GM 100 ML IV ONE (08:15)
[2023-07-02 09:15] VITALS: PULSE 60; RESP 95; O2SAT 94
[2023-07-02 09:48] LABS: Lactic Acid w/Reflex 2.1 mmol/L (0.4-2.0)
[2023-07-02] MEDS ORDERED: ACETAMINOPHEN 325 MG TAB PO PRN (11:30)
[2023-07-02] MEDS ORDERED: IPRATROPIUM BROM 0.5 MG/2.5ML INH SOL NEB PRN (12:00)
[2023-07-02] MEDS ORDERED: ALBUTEROL SULF 2.5 MG/0.5ML(0.5%) NEB SOLN NEB PRN (12:00)
[2023-07-02 12:11] VITALS: BP 124/50; PULSE 52; RESP 16; TEMP 98.3; O2SAT 94
[2023-07-02] MEDS: cefTRIAXone 1GM/50ML D5W 50 ML IV SCH (12:11)
[2023-07-02] MEDS ORDERED: DEXTROSE (50%) 50ML SYRG IV PRN (12:15)
[2023-07-02] MEDS: AZITHROMYCIN 500MG/ 250ML 250 ML IV SCH (14:47)
[2023-07-02] MEDS: ACCU-CHEK COMFORT CURVE STRIP VI SCH ×2 (17:48→21:22)
[2023-07-02] MEDS: InsuLIN REG 1unit/0.01ml Soln (100units/ml) SC SCH ×2 (18:40→21:27)
[2023-07-02] MEDS ORDERED: ALBU2TAB11 PO (19:21)
[2023-07-02] MEDS ORDERED: MET25T PO (20:40)
[2023-07-02] MEDS ORDERED: GAB100C PO (20:49)
[2023-07-02] MEDS: methylPREDNISolone SOD SUCC 40 MG/ML VL IV SCH (21:22)
[2023-07-02 22:00] VITALS: BP 109/71; PULSE 83; RESP 18; TEMP 97.9; O2SAT 91
[2023-07-02 22:36] VITALS: O2SAT 94
[2023-07-03 05:00] VITALS: BP 117/51; PULSE 71; RESP 18; TEMP 98.1; O2SAT 96
[2023-07-03 06:02] VITALS: O2SAT 96
[2023-07-03] MEDS: ACCU-CHEK COMFORT CURVE STRIP VI SCH ×3 (06:14→17:00)
[2023-07-03] MEDS: InsuLIN REG 1unit/0.01ml Soln (100units/ml) SC SCH ×3 (06:19→17:00)
[2023-07-03] MEDS ORDERED: NIFEdipine ER 30 MG TAB PO SCH (10:00)
[2023-07-03] MEDS: cefTRIAXone 1GM/50ML D5W 50 ML IV SCH (10:00)
[2023-07-03] MEDS ORDERED: ENOXAPARIN SOD 40 MG/0.4 ML SYRINGE SC SCH (10:00)
[2023-07-03] MEDS: methylPREDNISolone SOD SUCC 40 MG/ML VL IV SCH (10:00)
[2023-07-03] MEDS: AZITHROMYCIN 500MG/ 250ML 250 ML IV SCH (10:00)
[2023-07-03 10:58] LABS: Basophils # (auto) 0 10 ^3/uL (0-0.2); Basophils % (auto) 0.1 % (0.0-2.0); Eosinophils # (auto) 0 10 ^3/uL (0-0.8); Hematocrit 42.9 % (41.0-53.0); Hemoglobin 14.4 g/dL (13.5-17.5); Lymphocytes % (auto) 7.7 % (10.0-50.0); Mean Corpuscular Hemoglobin 31.1 pg (28.0-32.0); Mean Corpuscular Hgb Conc. 33.6 g/dL (32.0-36.0); Mean Corpuscular Volume 92.6 fL (80.0-100.0); Monocytes # (auto) 0.4 10 ^3/uL (0-1.3); Monocytes % (auto) 2.8 % (0.0-12.0); Neutrophils # (auto) 11.1 10 ^3/uL (1.6-8.6); Neutrophils % (auto) 89.4 % (37.0-80.0); Nucleated Red Blood Cells % 0.1 %; Red Blood Cells 4.64 10^6/uL (4.5-5.90); Red Cell Distribution Width 14.3 % (11.8-14.3); White Blood Cell 12.4 10^3/uL (4.4-10.8)
[2023-07-03 11:07] LABS: Chloride 105 mmol/L (98-107); Potassium 4.2 mmol/L (3.5-5.1); Sodium 137 mmol/L (136-145)
[2023-07-03 11:08] LABS: Anion Gap 8 (5-15); Carbon Dioxide 24 mmol/L (20-30)
[2023-07-03 11:09] LABS: Calcium 9.9 mg/dL (8.7-10.4)
[2023-07-03 11:13] LABS: BUN/Creatinine Ratio 11.6 (10.0-20.0); Blood Urea Nitrogen 13 mg/dL (9-23); Glucose 167 mg/dL (74-106)
[2023-07-03 11:14] LABS: Magnesium 1.8 mg/dL (1.6-2.6)
[2023-07-03] MEDS ORDERED: METH4PAK PO (13:15)
[2023-07-03] MEDS ORDERED: AZIT-81 PO (13:16)
[2023-07-03] MEDS ORDERED: ATORVASTATIN 20 MG TAB PO SCH (22:00)
== END 2023-07-03 17:30 | disposition home or self-care (01) | DRG 191 ==
LOC: ER 03:16 → OVERFLOW 11:27 → CENTRAL 19:45
PROVIDERS: ADMIT Internal Medicine; ATTEND Internal Medicine
DX: J44.1 Chronic obstructive pulmonary disease with (acute) exacerbation (principal); I50.22 Chronic systolic (congestive) heart failure; I11.0 Hypertensive heart disease with heart failure; F17.210 Nicotine dependence, cigarettes, uncomplicated; I25.10 Atherosclerotic heart disease of native coronary artery without angina pectoris; F41.9 Anxiety disorder, unspecified; E11.9 Type 2 diabetes mellitus without complications; E78.5 Hyperlipidemia, unspecified; Z20.822 Contact with and (suspected) exposure to COVID-19; Z71.6 Tobacco abuse counseling
CPT/HCPCS: 36415; 71045; 80048; 80053; 81001; 82962; 83036; 83605; 83735; 83880; 84484; 85025; 85610; 85730; 87040; 87081; 87426; 87804; 93005; 94640; G0378; J0696; J1815

== ENCOUNTER 2024-12-06 17:24 | Inpatient (IN) | payer MEDICAID, OTHER ==
[~2024-12-06] VITALS: Ht 170.2 cm; Wt 84.2 kg
[~2024-12-06 17:24] MED LIST changes: -ATO40T PO; +ATOR-507 PO; +AZIT-185 PO; -AZIT1POW PO; -BACDST PO; -CEPH-510 PO; -CLIN300C70 PO; -HYDR-4902 PO; -IBUP-1456 PO; +MECL-90 PO; -MECL1TAB32 PO; +MET25T PO; -ROPI-24 PO; +ROPI2TAB27 PO; -ROPI2TAB6 PO; -SULF400T11 PO; -TRAZ-228 PO
--- NOTE | 2024-12-06 17:50 | ED.PDOC ---
General HPI Comments HPI: 69 y/o M, presents to the ED for CC of right flank pain. Patient states, that he has been experiencing right flank pain that radiates to his RLQ and right groin x5days. Patient relays, associated symptoms of dysuria with burning sensation. Patient denies fever, chills, body-aches, hematuria, or foul ordered urine. No o ther symptoms or modifying factors at this time. VITALS: T: 97.4 RR: 18 HR: 101 BP: 1354/69 SPO2:96% Past Medical History: DM, HTN, HLD, HEART DISEASE Past Surgical History: HERNIA BRIOTO: HPI: Poor Historian. REVIEW OF SYSTEMS: CONSTITUTIONAL: Denies acute: fever, diaphoresis, chills, generalized weakness. HEAD: Denies acute: headache, photophobia Eyes: Denies acute: Double vision, vision loss, eye pain, eye discharge. EARS: Denies acute: tinnitus, hearing loss, ear discharge, ear pain, THROAT: Denies acute: sore throat, swelling, difficulty swallowing , pain with swallowing, change in voice. NECK: Denies acute: neck pain, neck swelling, stiff neck. HEART: Denies acute : chest pain, palpitations, LUNGS: Denies acute: SOB, wheezing, cough, hemoptysis ABDOMEN: Denies acute: , Nausea, Vomiting, diarrhea, melena , hematemesis, hematochezia SKIN: Denies acute: rash, redness, lesions, itchiness. EXTREMITIES: Denies acute: calf pain, numbness, tingling, weakness, denies pain in extremity. Neuro: Denies acute: focal neurological deficit, motor or sensory focal neurological deficit, tremors, seizure like activity, confusion, dizziness, change in mental status, loss of bowel or bladder function, cauda equina like symptoms. : Denies acute: , hematuria, flank pain, increase in urinary frequency. PSYCH: Denies acute: hallucination, suicidal ideation, homicidal ideation. PHYSICAL EXAM: General: ---no-----acute distress, awake and alert. Head: normocephalic, atraumatic. Neck: supple, trachea is midline, no swelling. Throat: Normal phonation. Eyes:, no erythema, no purulent discharge, no proptosis, no icterus. Heart: regular rate, regular rhythm, no significant murmur appreciated. Lungs: no apparent respiratory distress, Able to speak in full sentences. No wheezing, no rhonchi, no crackles. No stridors Clear to auscultation bilaterally. Abdomen: Minimal right lower quadrant/groin tender to palpation, non distended, soft, no guarding, no rebound, + bowel sounds. Neuro: Awake, Alert, oriented to name, self, situation, follows commands GCS=15. Speech is normal. Skin: no petechia, no purpura, no cyanosis, non-pale, not jaundice. Lower extremities: --no - Pitting edema no deformity, no focal swelling, no calf TTP. Makes eye contact. moves all four extremities. Face: no apparent facial droop. No CVA tenderness to percussion bilaterally. Ambulating in the ED independently. Patient points to his right lumbosacral posterior iliac crest region where his pain is that wraps around to his right anterior groin area. ED COURSE: Chief Complaint: Flank Pain Time Seen by MD: 17:40 Primary Care Provider: VERA Reviewed notes: Nurses Notes, Medications, Allergies Allergies: Coded Allergies: Aspirin (Verified Allergy, Severe, RASH, 06/03/20) Fish Allergy (Verified Allergy, Unknown, 08/03/21) Home Meds Active Scripts Azithromycin (ZITHROMAX TABLET) 250 Mg Tb, 250 MG PO DAILY, #6 TAB Prov:MARCOS HERNANDEZ MD 07/03/23 Methylprednisolone (Medrol Dosepak) 4 Mg Moody, 4 MG PO UD, #21 TAB UAD Prov:MARCOS HERNANDEZ MD 07/03/23 Ibuprofen Micronized (Ibuprofen) 800 Mg Tab, 800 MG PO Q8HP PRN, #30 TAB Prov:DANE CABALLERO PAC 05/19/23 Meclizine Hcl (Meclizine Hcl) 25 Mg Tab, 25 MG PO Q8HP PRN for 14 Days, #42 TAB Prov:ERLIN CLARK FLOTATION TENDER 03/26/23 Atorvastatin Calcium (Lipitor) 40 Mg Tab, 1 TAB PO QPM, #90 TAB 1 Refill Prov:CHEO LAI MD 02/24/23 Rivaroxaban (XARELTO) 10 Mg Tab, 0.25 TAB PO BID, #90 TAB Prov:CHEO LAI MD 02/24/23 Clopidogrel Bisulfate (Plavix) 75 Mg Tab, 1 TAB PO DAILY, #90 TAB 1 Refill Prov:CHEO LAI MD 02/24/23 Nifedipine (Nifedipine ER) 30 Mg Tab, 30 MG PO DAILY for 30 Days, #30 TAB Prov:YINA BUSTAMANTE FLOTATION TENDER 02/18/23 Acetaminophen (Acetaminophen) 500 Mg Tab, 500 MG PO QID, #30 TAB 0 Refills Prov:AIDA OBANDO 12/16/22 Ropinirole Hydrochloride (Ropinirole Hcl) 2 Mg Tab, 2 MG PO TID, #90 TAB 0 Refills Prov:KYLER SEQUEIRA ELECTRIC METER READER 11/23/22 Famotidine (PEPCID TABLET) 20 Mg Tb, 1 TAB PO BID PRN, #30 TAB 5 Refills Prov:ACE GRIER MD 06/10/22 Ondansetron (Zofran) 4 Mg Tab, 4 MG PO TIDPRN PRN, #15 TAB Prov:ACE GRIER MD 06/10/22 Acetaminophen (Acetaminophen Extra Stren) 500 Mg Tab, 1000 MG PO Q6HP PRN, #30 TAB Prov:ACE GRIER MD 06/10/22 Reported Medications Metoprolol Tartrate (Lopressor) 25 Mg Tb, 1 TAB PO BID 07/02/23 Hydroxyzine Hcl (Hydroxyzine Hcl) 10 Mg Tab, 10 MG PO HS for 30 Days, MG 02/28/22 Metformin Hydrochloride (Metformin Hcl) 500 Mg Tab, 500 MG PO IBID for 30 Days, MG 02/27/22 Trazodone HCl (Trazodone Hydrochloride) 50 Mg Tab, 1 TAB PO HS, TAB 06/28/20 Tiotropium Jameson Monohydrate (Spiriva Handihaler) 18 Mcg Cap, 18 MCG IN, CAP 06/28/20 Gabapentin (Gabapentin) 100 Mg Cap, 3 CAP PO HS for 30 Days, MG 06/28/20 Omeprazole (Gnp Omeprazole) 20 Mg Tab, 1 TAB PO DAILY, #90 TAB 1 Refill 06/28/20 Information Source: Patient Mode of Arrival: Ambulatory Severity: Moderate Timing: Days Duration: Since onset Prehospital treatment: None Onset: Spontaneous Symptoms: None History of: None Location: (R) Flank Penile discharge: None associated signs and symptoms: Flank Pain, Back Pain Was a procedure done? Was a procedure done?: No Differential Diagnosis Kidney stone (Female): N/A Urinary Problem (Male): Bladder Outlet, Bladder Obstruction, Epididymitis, Prostatitis, Plelonephritis, Post op Complications, Renal Failure, Urethritis, Urinary Retention, Urolithiasis, UTI, Other (DDX include but not limited to diverticulitis, colitis, gastroenteritis, acute abdomen, SBO, enteritis, constipation, volvulus, appendicitis, Gallbladder disease, choledocolithiasis, ascending cholangitis, pancreatitis, intraAbdominal mass/neoplasm, hepatitis, UTI, pylonephritis, kidney stone, aneurysm, dissection, Inflammatory bowel disease, gastroparesis, ischemic bowel.) X-Ray, Labs, Meds, VS Vital Signs Date Time Temp Pulse Resp B/P (MAP) Pulse Ox O2 Delivery O2 Flow Rate FiO2 12/06/24 20:45 75 18 94 Room Air* 0 21 12/06/24 20:36 98.4 75 18 107/58 (74) 94 98.4 12/06/24 17:51 83 12/06/24 17:30 97.4 101 18 135/69 (91) 96 97.4 Lab Test 12/06/24 19:47 12/06/24 18:57 12/06/24 17:43 12/06/24 17:39 Range/Units Troponin I High Sensitivity 6 6 </=54 ng/L White Blood Count 6.9 4.4-10.8 10^3/uL Red Blood Count 4.47 L 4.5-5.90 10^6/uL Hemoglobin 13.1 L 13.5-17.5 g/dL Hematocrit 38.4 L 41.0-53.0 % Mean Corpuscular Volume 86.0 80.0-100.0 fL Mean Corpuscular Hemoglobin 29.3 28.0-32.0 pg Mean Corpuscular Hemoglobin Concent 34.1 32.0-36.0 g/dL Red Cell Distribution Width 17.7 H 11.8-14.3 % Platelet Count 209 140-450 10^3/uL Mean Platelet Volume 7.5 6.9-10.8 fL Neutrophils (%) (Auto) 67.3 37.0-80.0 % Lymphocytes (%) (Auto) 23.0 10.0-50.0 % Monocytes (%) (Auto) 6.9 0.0-12.0 % Eosinophils (%) (Auto) 2.1 0.0-7.0 % Basophils (%) (Auto) 0.7 0.0-2.0 % Neutrophils # (Auto) 4.6 1.6-8.6 10 ^3/uL Lymphocytes # (Auto) 1.6 0.4-5.4 10 ^3/uL Monocytes # (Auto) 0.5 0-1.3 10 ^3/uL Eosinophils # (Auto) 0.1 0-0.8 10 ^3/uL Basophils # (Auto) 0 0-0.2 10 ^3/uL Nucleated Red Blood Cells 0.1 % Sodium Level 138 136-145 mmol/L Potassium Level 3.9 3.5-5.1 mmol/L Chloride Level 107 98-107 mmol/L Carbon Dioxide Level 23 20-31 mmol/L Anion Gap 8 5-15 Blood Urea Nitrogen 19 9-23 mg/dL Creatinine 1.13 0.700-1.30 mg/dL Glomerular Filtration Rate Calc 71 >90 mL/min BUN/Creatinine Ratio 16.8 10.0-20.0 Serum Glucose 147 H 74-106 mg/dL Lactic Acid Level 1.9 0.4-2.0 mmol/L Calcium Level 9.5 8.7-10.4 mg/dL Total Bilirubin 0.6 0.2-1.0 mg/dL Aspartate Amino Transferase (AST) 16 13-40 U/L Alanine Aminotransferase (ALT) 24 7-40 U/L Alkaline Phosphatase 150 H 46-116 U/L Total Protein 7.3 5.7-8.2 g/dL Albumin 4.9 H 3.2-4.8 g/dL Lipase 48 12-53 U/L POC Glucose 135 H 70-106 mg/dl Urine Color Light-yellow Yellow Urine Clarity Clear Clear Urine pH 6.0 5.0-9.0 Urine Specific [place] 1.016 1.001-1.035 Urine Protein Negative Negative Urine Ketones Negative Negative Urine Blood Negative Negative /uL Urine Nitrite Negative Negative Urine Bilirubin Negative Negative Urine Urobilinogen Normal Negative mg/dL Urine Leukocyte Esterase Negative Negative /uL Urine RBC <1 0 - 3 /hpf Urine Microscopic WBC < 1 0-3 /HPF Urine Squamous Epithelial Cells None seen <5 /hpf Urine Bacteria None seen None Seen /hpf Urine Glucose Normal Normal mg/dL Current Medications Medications (Trade) Dose Ordered Sig/Mena Route Start Time Stop Time Status Last Admin Sodium Chloride 1,000 ml @ 1,000 mls/hr Q1H ONCE IV 12/06/24 19:30 12/06/24 20:29 DC 12/06/24 20:39 Ceftriaxone Sodium 50 ml @ 100 mls/hr ONCE ONCE IV 12/06/24 19:30 12/06/24 19:59 DC 12/06/24 20:39 [place] [address] Ph: [phone] DIAGNOSTIC IMAGING Diagnostic Imaging Report : [id number] Signed PATIENT: ALFONZO DE LEON ACCT: [id number] UNIT: [id number] : 1955 LOC: ER ROOM / BED: / AGE / SEX: 69 / M ADM STATUS: REG ER SERVICE [id number] ORDERING PHYSICIAN: JERI COOPER DO PROCEDURE(s): ABPL - CT AB PEL WO CON-NO ORAL OR IV REASON: flank pain urinary symptoms ORDER NUMBER(s): [id number], ACCESSION NUMBER(s): [id number] Exam: CT CT AB PEL WO CON-NO ORAL OR IV History: flank pain urinary symptoms Comparison Study: None available at time of dictation. TECHNIQUE: Multidetector CT of the abdomen and pelvis without IV contrast. Axial, coronal and sagittal multiplanar reformats were obtained from the axial data set by the technologist. Radiation Dose Information: CT Dose: CTDI volume is 15.37 mGy. Dose-length product is 832.99 mGy*cm FINDINGS: The lung bases are clear. Partially visualized heart is normal in size. Trace pericardial effusion. Liver, spleen, pancreas and adrenal glands unremarkable. Cholelithiasis without evidence of acute cholecystitis. There is nonspecific bilateral perirenal fat stranding. No hydronephrosis or obstructing calculus bilaterally. 1.6 cm exophytic right renal lower pole cyst. Urinary bladder is unremarkable. Prostate measures 3.2 x 4.9 by 3.4 cm. Stomach is unremarkable. Small bowel loops unremarkable. Appendix is unremarkable. Descending colon and Sigmoid diverticulosis without diverticulitis [id number] amount within the colon. No evidence of intraperitoneal free air or free fluid. Heavy atherosclerotic calcification of the aorta and bilateral iliacs with the evidence of aneurysm. Small fat containing left the right inguinal hernia. Moderate left and small right-sided fat containing direct inguinal hernia. Mild fat stranding of the bilateral gluteal subcutaneous fat. Otherwise, the soft tissues unremarkable. Surgical clips are noted over the right inguinal region. Slightly prominent bilateral inguinal lymph nodes measuring up to 1 cm which may be reactive. No destructive osseous lesions are noted. IMPRESSION: Mild nonspecific bilateral perirenal fat stranding. Correlate for infectious process. No hydro nephrosis. Descending colon and Sigmoid diverticulosis without diverticulitis. ATED BY: JACLYN GUERRIER DO DICTATED DATE/TIME: 12/06/241853 SIGNED BY: JACLYN GUERRIER DO SIGNED DATE/TIME: 12/06/241853 CC: Time of 1ST Reevaluation: 18:20 Reevaluation 1ST: Unchanged Patient Education/Counseling: Diagnosis, Treatment Family Education/Counseling: Other Comments Patient presented with the above HPI.---right low back/flank pain with right groin pain---workup was initiated. patient was found with the above mentioned diagnosis. the following medications were ordered: please refer to order lists of meds and tests obtained by myself Dr. Cooper. Patient ED course and VS have been stabilized. Patient has been reassessed in the ED and remained in a stable condition. Pertinent incidental findings were discussed with the patient and/or family. Patient/family voices understanding and is agreeable with plan. Patient has been observed in the ED adequate length of time to insure improvement/stability. Escalation of care considered: Consideration of escalation to observation or admission CT scan suggest infectious process. Fluids and IV antibiotics initiated. Patient was ADMITTED to the medicine team for further evaluation and treatment of their presentation. All the reports of any imaging studies that were ordered by myself were reviewed by myself. Departure 1 Departure Time of Disposition: 19:56 Impression: Primary Impression: Infectious process Disposition: ADMITTED INPATIENT Admit to: Tele Condition: Guarded Additional Instructions: [facility] [id number] [facility] [address] Ph: [phone] DIAGNOSTIC IMAGING Diagnostic Imaging Report : [id number] Signed PATIENT: ALFONZO DE LEON ACCT: [id number] UNIT: [id number] : 1955 LOC: ER ROOM / BED: / AGE / SEX: 69 / M ADM STATUS: REG ER SERVICE [id number] ORDERING PHYSICIAN: JERI COOPER DO PROCEDURE(s): ABPL - CT AB PEL WO CON-NO ORAL OR IV REASON: flank pain urinary symptoms ORDER NUMBER(s): [id number], ACCESSION NUMBER(s): [id number] Exam: CT CT AB PEL WO CON-NO ORAL OR IV History: flank pain urinary symptoms Comparison Study: None available at time of dictation. TECHNIQUE: Multidetector CT of the abdomen and pelvis without IV contrast. Axial, coronal and sagittal multiplanar reformats were obtained from the axial data set by the technologist. Radiation Dose Information: CT Dose: CTDI volume is 15.37 mGy. Dose-length product is 832.99 mGy*cm FINDINGS: The lung bases are clear. Partially visualized heart is normal in size. Trace pericardial effusion. Liver, spleen, pancreas and adrenal glands unremarkable. Cholelithiasis without evidence of acute cholecystitis. There is nonspecific bilateral perirenal fat stranding. No hydronephrosis or obstructing calculus bilaterally. 1.6 cm exophytic right renal lower pole cyst. Urinary bladder is unremarkable. Prostate measures 3.2 x 4.9 by 3.4 cm. Stomach is unremarkable. Small bowel loops unremarkable. Appendix is unremarkable. Descending colon and Sigmoid diverticulosis without diverticulitis [id number] amount within the colon. No evidence of intraperitoneal free air or free fluid. Heavy atherosclerotic calcification of the aorta and bilateral iliacs with the evidence of aneurysm. Small fat containing left the right inguinal hernia. Moderate left and small right-sided fat containing direct inguinal hernia. Mild fat stranding of the bilateral gluteal subcutaneous fat. Otherwise, the soft tissues unremarkable. Surgical clips are noted over the right inguinal region. Slightly prominent bilateral inguinal lymph nodes measuring up to 1 cm which may be reactive. No destructive osseous lesions are noted. IMPRESSION: Mild nonspecific bilateral perirenal fat stranding. Correlate for infectious process. No hydro nephrosis. Descending colon and Sigmoid diverticulosis without diverticulitis. ATED BY: JACLYN GUERRIER DO DICTATED DATE/TIME: 12/06/241853 SIGNED BY: JACLYN GUERRIER DO SIGNED DATE/TIME: 12/06/241853 CC: Discharged With: Self Critical Care Note Critical Care Time?: No Heart Score Heart Score: Heart Score Response (Comments) Value History N/A 0 EKG N/A 0 Age N/A 0 Risk Factors N/A 0 Troponin N/A 0 Total 0 I personally scribed for JERI COOPER DO ([email or web address]) on 12/06/24 at 17:50. Electronically submitted by Altagracia Lao ([email or web address]). I personally scribed for JERI COOPER DO ([email or web address]) on 12/06/24 at 17:55. Electronically submitted by Altagracia Lao ([email or web address]). I personally scribed for JERI COOPER DO ([email or web address]) on 12/06/24 at 19:50. Electronically submitted by Altagracia Lao ([email or web address]). I personally scribed for JERI COOPER DO ([email or web address]) on 12/06/24 at 19:52. Electronically submitted by Altagracia Lao ([email or web address]). JERI COOPER DO Dec 06, 2024 17:50
--- NOTE | 2024-12-06 18:57 | DVH ---
Exam: CT CT AB PEL WO CON-NO ORAL OR IV History: flank pain urinary symptoms Comparison Study: None available at time of dictation. TECHNIQUE: Multidetector CT of the abdomen and pelvis without IV contrast. Axial, coronal and sagitta l multiplanar reformats were obtained from the axial data set by the technologist. Radiation Dose Information: CT Dose: CTDI volume is 15.37 mGy. Dose-length product is 832.99 mGy*cm FINDINGS: The lung bases are clear. Partially visualized heart is normal in size. Trace pericardial effusion. Liver, spleen, pancreas and adrenal glands unremarkable. Cholelithiasis without evidence of acute cho lecystitis. There is nonspecific bilateral perirenal fat stranding. No hydronephrosis or obstructing calculus yonatan aterally. 1.6 cm exophytic right renal lower pole cyst. Urinary bladder is unremarkable. Prostate gabriella sures 3.2 x 4.9 by 3.4 cm. Stomach is unremarkable. Small bowel loops unremarkable. Appendix is unremarkable. Descending colon and Sigmoid diverticulosis without diverticulitis [id number] amount within the colon. No evidence of intraperitoneal free air or free fluid. Heavy atherosclerotic calcification of the aorta and bilateral iliacs with the evidence of aneurysm. Small fat containing left the right inguinal hernia. Moderate left and small right-sided fat containi ng direct inguinal hernia. Mild fat stranding of the bilateral gluteal subcutaneous fat. Otherwise, the soft tissues unremarkable. Surgical clips are noted over the right inguinal region. Slightly prom inent bilateral inguinal lymph nodes measuring up to 1 cm which may be reactive. No destructive osseo us lesions are noted. IMPRESSION: Mild nonspecific bilateral perirenal fat stranding. Correlate for infectious process. No hydro nephr osis. Descending colon and Sigmoid diverticulosis without diverticulitis.
[2024-12-06 19:14] LABS: Basophils # (auto) 0 10 ^3/uL (0-0.2); Basophils % (auto) 0.7 % (0.0-2.0); Eosinophils # (auto) 0.1 10 ^3/uL (0-0.8); Eosinophils % (auto) 2.1 % (0.0-7.0); Hematocrit 38.4 % (41.0-53.0); Hemoglobin 13.1 g/dL (13.5-17.5); Lymphocytes # (auto) 1.6 10 ^3/uL (0.4-5.4); Mean Corpuscular Hemoglobin 29.3 pg (28.0-32.0); Mean Corpuscular Hgb Conc. 34.1 g/dL (32.0-36.0); Monocytes # (auto) 0.5 10 ^3/uL (0-1.3); Monocytes % (auto) 6.9 % (0.0-12.0); Neutrophils # (auto) 4.6 10 ^3/uL (1.6-8.6); Neutrophils % (auto) 67.3 % (37.0-80.0); Nucleated Red Blood Cells % 0.1 %; Platelet Count (auto) 209 10^3/uL (140-450); Red Blood Cells 4.47 10^6/uL (4.5-5.90); Red Cell Distribution Width 17.7 % (11.8-14.3); White Blood Cell 6.9 10^3/uL (4.4-10.8)
[2024-12-06 19:20] LABS: Urine Bacteria None Seen /hpf (None Seen)
[2024-12-06 19:24] LABS: Urine Blood Negative /uL (Negative); Urine Clarity Clear (Clear); Urine Color Light-Yellow (Yellow); Urine Protein, UAD Negative (Negative); Urine Specific Gravity 1.016 (1.001-1.035); Urine Squamous Epithelial Cell None Seen /hpf (<5); Urine Urobilinogen Normal (Negative); Urine WBC < 1 /HPF (0-3)
[2024-12-06 19:27] LABS: Alanine Aminotransferase 24 U/L (7-40); Anion Gap 8 (5-15); Aspartate Aminotransferase 16 U/L (13-40); BUN/Creatinine Ratio 16.8 (10.0-20.0); Bilirubin, Total 0.6 mg/dL (0.2-1.0); Blood Urea Nitrogen 19 mg/dL (9-23); Calcium 9.5 mg/dL (8.7-10.4); Carbon Dioxide 23 mmol/L (20-31); Lipase 48 U/L (12-53); Potassium 3.9 mmol/L (3.5-5.1); Sodium 138 mmol/L (136-145); Total Protein 7.3 g/dL (5.7-8.2)
[2024-12-06 19:31] LABS: Albumin 4.9 g/dL (3.2-4.8); Alkaline Phosphatase 150 U/L (46-116); Chloride 107 mmol/L (98-107); Glucose 147 mg/dL (74-106)
[2024-12-06] MEDS: cefTRIAXone 1GM/50ML D5W 50 ML IV ONE (20:39)
[2024-12-06] MEDS: SODIUM CHLORIDE 0.9% 1,000 ML IV ONE (20:39)
[2024-12-06 20:45] VITALS: PULSE 75; RESP 18; O2SAT 94
[2024-12-06] MEDS ORDERED: ACETAMINOPHEN 325 MG TAB PO PRN (23:30)
--- NOTE | 2024-12-06 23:34 | DVHHPRES ---
History of Present Illness Resident Creating Document: BALJEET JONES RESIDENT Reason for Visit: Right flank pain History of Present Illness This is a 69 year with a past medical history of stent placement in February of 2023, diabetes, hyperlipidemia presented to the ED that she right flank pain. Per the patient, he has been feeling right flank/ RUQ pain for 5-8 days. He denies fever, chills, hematuria, hesitancy, urgency, but endorses dysuria with burning sensation. Urinalysis was grossly unremarkable. CT abdomen showed Mild nonspecific bilateral perirenal fat stranding. There was no evidence of any infection noted notable in the urine. However patient is to come to [facility] to complain of right sided pain/right flank pain. Past medical history: Hypertensive heart disease, Hypertension, diabetes, [place] status post stent placement in February 2023 Surgical history: Stent placement in 2022, 2 hernia repairs Social history: Patient she tied Family history: Noncontributing to his current illness Medication history include: Metformin, Protonix, gabapentin, clopidogrel, rope P neuro, and from hi past so, and ibuprofen, fexofenadine Past Medical History See hpi Review of Systems Allergies: Coded Allergies: Aspirin (Verified Allergy, Severe, RASH, 06/03/20) Fish Allergy (Verified Allergy, Unknown, 08/03/21) Exam Vital Signs Vital Signs Date Time Temp Pulse Resp B/P (MAP) Pulse Ox O2 Delivery O2 Flow Rate FiO2 12/06/24 20:45 75 18 94 Room Air* 0 21 12/06/24 20:36 98.4 107/58 (74) 98.4 Exam General Appearance: Alert, Oriented X3, Cooperative, No acute distress HEENT: Atraumatic, PERRLA, EOMI, Mucous membrane moist/pink Respiratory: Clear to auscultation, Normal air movement Cardiovascular: Regular rate, Normal S1, Normal S2, No murmurs, no chest wall tenderness Abdominal: distention, right flank tenderness, bowel sounds present, no scars noted Extremities: No clubbing, No cyanosis, No edema, Normal pulses, No tenderness/swelling Skin: No rashes, No breakdown, No significant lesion Neuro: Normal speech, Strength at 5/5 X4 ext, Normal tone, Sensation intact, Cranial nerves 3-12 NL, Reflexes 2+ Psych/Mental Status: Mental status NL, Mood NL Labs/Xrays Labs Test 12/06/24 19:47 12/06/24 18:57 12/06/24 17:43 12/06/24 17:39 Range/Units Troponin I High Sensitivity 6 </=54 ng/L White Blood Count 6.9 4.4-10.8 10^3/uL Red Blood Count 4.47 L 4.5-5.90 10^6/uL Hemoglobin 13.1 L 13.5-17.5 g/dL Hematocrit 38.4 L 41.0-53.0 % Mean Corpuscular Volume 86.0 80.0-100.0 fL Mean Corpuscular Hemoglobin 29.3 28.0-32.0 pg Mean Corpuscular Hemoglobin Concent 34.1 32.0-36.0 g/dL Red Cell Distribution Width 17.7 H 11.8-14.3 % Platelet Count 209 140-450 10^3/uL Mean Platelet Volume 7.5 6.9-10.8 fL Neutrophils (%) (Auto) 67.3 37.0-80.0 % Lymphocytes (%) (Auto) 23.0 10.0-50.0 % Monocytes (%) (Auto) 6.9 0.0-12.0 % Eosinophils (%) (Auto) 2.1 0.0-7.0 % Basophils (%) (Auto) 0.7 0.0-2.0 % Neutrophils # (Auto) 4.6 1.6-8.6 10 ^3/uL Lymphocytes # (Auto) 1.6 0.4-5.4 10 ^3/uL Monocytes # (Auto) 0.5 0-1.3 10 ^3/uL Eosinophils # (Auto) 0.1 0-0.8 10 ^3/uL Basophils # (Auto) 0 0-0.2 10 ^3/uL Nucleated Red Blood Cells 0.1 % Sodium Level 138 136-145 mmol/L Potassium Level 3.9 3.5-5.1 mmol/L Chloride Level 107 98-107 mmol/L Carbon Dioxide Level 23 20-31 mmol/L Anion Gap 8 5-15 Blood Urea Nitrogen 19 9-23 mg/dL Creatinine 1.13 0.700-1.30 mg/dL Glomerular Filtration Rate Calc 71 >90 mL/min BUN/Creatinine Ratio 16.8 10.0-20.0 Serum Glucose 147 H 74-106 mg/dL Lactic Acid Level 1.9 0.4-2.0 mmol/L Calcium Level 9.5 8.7-10.4 mg/dL Total Bilirubin 0.6 0.2-1.0 mg/dL Aspartate Amino Transferase (AST) 16 13-40 U/L Alanine Aminotransferase (ALT) 24 7-40 U/L Alkaline Phosphatase 150 H 46-116 U/L Total Protein 7.3 5.7-8.2 g/dL Albumin 4.9 H 3.2-4.8 g/dL Lipase 48 12-53 U/L POC Glucose 135 H 70-106 mg/dl Urine Color Light-yellow Yellow Urine Clarity Clear Clear Urine pH 6.0 5.0-9.0 Urine Specific [place] 1.016 1.001-1.035 Urine Protein Negative Negative Urine Ketones Negative Negative Urine Blood Negative Negative /uL Urine Nitrite Negative Negative Urine Bilirubin Negative Negative Urine Urobilinogen Normal Negative mg/dL Urine Leukocyte Esterase Negative Negative /uL Urine RBC <1 0 - 3 /hpf Urine Microscopic WBC < 1 0-3 /HPF Urine Squamous Epithelial Cells None seen <5 /hpf Urine Bacteria None seen None Seen /hpf Urine Glucose Normal Normal mg/dL Assessment/Plan Assessment/Plan Assessment Right flank pain/right upper quadrant pain, rule out stone nephrolithiasis or cholelithiasis Mild nonspecific bilateral perirenal fat stranding. Correlate for infectious process. No hydro nephrosis. Descending colon and Sigmoid diverticulosis without diverticulitis Morbid obesity grade 1 Hypertension Diabetes History of stent placement Plan Adequate hydration with N/S Adequate pain control with ketorolac Strain urine Obtain ultrasound of the complete abdominal pevlic US assess for renal stone or cholelithiasis. NPO until we rule out gallstones as a cause his his RUG/right flank pain Goal of care discussed for more than 20 minutes: Full code Case and plan discussed with Dr. Cevallos Plan discussed with: Patient Date of Service: Dec 06, 2024 Billing Provider: JANIYA CEVALLOS MD Common Visit Codes: 32118-ZJBXSCA INP/OBS CARE (HIGH) Secondary Visit Codes: 75016-ULMBAARL CARE PLAN 30 MINUTES BALJEET JONES Dec 06, 2024 23:34 JANIYA CEVALLOS MD Dec 12, 2024 12:15
[2024-12-07] VITALS (12 sets, daily range): BP systolic 104–136; BP diastolic 48–78; PULSE 56–85; RESP 16–22; TEMP 98.1–98.4; O2SAT 91–98
[2024-12-07 00:02] LABS: Triglycerides 149 mg/dL (< 150)
[2024-12-07 00:03] LABS: LDL Cholesterol 48 mg/dL (< 100)
[2024-12-07 00:04] LABS: Cholesterol 114 mg/dL (< 200); HDL Cholesterol 44 mg/dL (40-59)
[2024-12-07] MEDS ORDERED: KETOROLAC TROMETH 30 MG/ML 1ML VIAL IV PRN (01:00)
[2024-12-07] MEDS ORDERED: ONDANSETRON ODT 4 MG TAB PO PRN (01:15)
[2024-12-07] MEDS: KETOROLAC TROMETH 30 MG/ML 1ML VIAL IV ONE (01:16)
[2024-12-07] MEDS: TAMSULOSIN HYDROCHLORIDE 0.4 MG CAP PO ONE (01:32)
[2024-12-07] MEDS: GABAPENTIN 100 MG CAP PO SCH (01:32)
--- NOTE | 2024-12-07 03:41 | DVH ---
INDICATION: rule out a stone TECHNIQUE: Multiple real-time sonographic images of the abdomen were obtained. COMPARISON: CT 12/06/2024 FINDINGS: Liver appears normal in echotexture. No intra or extrahepatic biliary dilatation. Common bile duct estimates 0.6 cm. The gallbladder is filled with gallstones and collapsed. No evidence of w all thickening or pericholecystic fluid. Right kidney measures 10.2 cm in length. The left kidney measures 10.1 cm in length. There is no hy dronephrosis. There is a 1.4 cm left renal cysts. The spleen appears unremarkable measuring 9.9 cm i n length. Visualized portions of the pancreas, abdominal aorta, and intrahepatic IVC appear unremarkable. IMPRESSION:. 1. Cholelithiasis without evidence gallbladder wall thickening or pericholecystic fluid.
[2024-12-07] MEDS ORDERED: ROPINIROLE HYDROCHLORIDE 2 MG PO SCH (06:00)
[2024-12-07] MEDS ORDERED: ATOR40TA52 PO (07:04)
[2024-12-07] MEDS ORDERED: GAB100C PO (07:04)
[2024-12-07] MEDS ORDERED: CLOP75TA70 PO (07:04)
[2024-12-07] MEDS ORDERED: ALBU108A5 INH (07:04)
[2024-12-07] MEDS ORDERED: IPRATROPIUM BROM 0.5 MG/2.5ML INH SOL NEB PRN (09:00)
[2024-12-07] MEDS ORDERED: DEXTROSE (50%) 50ML SYRG IV PRN (09:00)
[2024-12-07] MEDS ORDERED: ALBUTEROL SULF 2.5 MG/0.5ML(0.5%) NEB SOLN NEB PRN (09:00)
[2024-12-07 10:22] LABS: Basophils # (auto) 0 10 ^3/uL (0-0.2); Basophils % (auto) 0.7 % (0.0-2.0); Eosinophils # (auto) 0.1 10 ^3/uL (0-0.8); Eosinophils % (auto) 1.9 % (0.0-7.0); Hematocrit 41.5 % (41.0-53.0); Hemoglobin 13.9 g/dL (13.5-17.5); Lymphocytes # (auto) 1.5 10 ^3/uL (0.4-5.4); Lymphocytes % (auto) 27.1 % (10.0-50.0); Mean Corpuscular Hgb Conc. 33.5 g/dL (32.0-36.0); Mean Corpuscular Volume 86.7 fL (80.0-100.0); Monocytes # (auto) 0.4 10 ^3/uL (0-1.3); Monocytes % (auto) 7.2 % (0.0-12.0); Neutrophils # (auto) 3.6 10 ^3/uL (1.6-8.6); Neutrophils % (auto) 63.1 % (37.0-80.0); Nucleated Red Blood Cells % 0.1 %; Platelet Count (auto) 206 10^3/uL (140-450); Red Blood Cells 4.79 10^6/uL (4.5-5.90); Red Cell Distribution Width 17.5 % (11.8-14.3); White Blood Cell 5.7 10^3/uL (4.4-10.8)
[2024-12-07 10:42] LABS: Alanine Aminotransferase 12 U/L (7-40); Anion Gap 10 (5-15); BUN/Creatinine Ratio 13.9 (10.0-20.0); Blood Urea Nitrogen 14 mg/dL (9-23); Potassium 4.1 mmol/L (3.5-5.1); Sodium 139 mmol/L (136-145); Total Protein 7.7 g/dL (5.7-8.2)
[2024-12-07 10:43] LABS: Aspartate Aminotransferase 20 U/L (13-40); Bilirubin, Total 0.7 mg/dL (0.2-1.0)
[2024-12-07 10:48] LABS: Albumin 5.2 g/dL (3.2-4.8); Alkaline Phosphatase 159 U/L (46-116); Carbon Dioxide 19 mmol/L (20-31); Chloride 110 mmol/L (98-107); Glucose 138 mg/dL (74-106)
--- NOTE | 2024-12-07 10:56 | ECG ---
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
[2024-12-07] MEDS: CLOPIDOGREL BISULFATE 75 MG TAB PO SCH (11:03)
[2024-12-07] MEDS: PANTOPRAZOLE 40 MG TAB PO SCH (11:03)
[2024-12-07] MEDS: ACCU-CHEK COMFORT CURVE STRIP VI SCH (12:00)
[2024-12-07] MEDS ORDERED: TAMS0.4C39 PO ×2 (12:39→19:47)
[2024-12-07] MEDS ORDERED: ROPI2TAB27 PO (12:39)
[2024-12-07] MEDS ORDERED: LACT10SO3 PO (12:39)
[2024-12-07] MEDS ORDERED: POLYETHYLENE GLYCOL 17 GM PWDR PO ONE (12:45)
[2024-12-07] MEDS: InsuLIN REG 1unit/0.01ml Soln (100units/ml) SC SCH (13:28)
[2024-12-07] MEDS ORDERED: TAMSULOSIN HYDROCHLORIDE 0.4 MG CAP PO SCH (18:00)
--- NOTE | 2024-12-07 18:54 | DVHDSRES ---
Discharge Summary Date of Admission Resident Creating Document: FAVIOLA MCFARLANE RESIDENT Dec 06, 2024 at 23:27 Date of Discharge: Dec 07, 2024 Admitting Diagnosis Right flank pain/right upper quadrant pain, rule out stone nephrolithiasis or cholelithiasis Mild nonspecific bilateral perirenal fat stranding. Correlate for infectious process. No hydro nephrosis. Descending colon and Sigmoid diverticulosis without diverticulitis Morbid obesity grade 1 Hypertension Diabetes History of stent placement Wounds: none Labs/Diagnostic Data: Laboratory Results Test 12/07/24 13:17 12/07/24 10:06 12/06/24 19:47 12/06/24 18:57 POC Glucose 197 mg/dl (70-106) White Blood Count 5.7 10^3/uL (4.4-10.8) Red Blood Count 4.79 10^6/uL (4.5-5.90) Hemoglobin 13.9 g/dL (13.5-17.5) Hematocrit 41.5 % (41.0-53.0) Mean Corpuscular Volume 86.7 fL (80.0-100.0) Mean Corpuscular Hemoglobin 29.0 pg (28.0-32.0) Mean Corpuscular Hemoglobin Concent 33.5 g/dL (32.0-36.0) Red Cell Distribution Width 17.5 % (11.8-14.3) Platelet Count 206 10^3/uL (140-450) Mean Platelet Volume 7.5 fL (6.9-10.8) Neutrophils (%) (Auto) 63.1 % (37.0-80.0) Lymphocytes (%) (Auto) 27.1 % (10.0-50.0) Monocytes (%) (Auto) 7.2 % (0.0-12.0) Eosinophils (%) (Auto) 1.9 % (0.0-7.0) Basophils (%) (Auto) 0.7 % (0.0-2.0) Neutrophils # (Auto) 3.6 10 ^3/uL (1.6-8.6) Lymphocytes # (Auto) 1.5 10 ^3/uL (0.4-5.4) Monocytes # (Auto) 0.4 10 ^3/uL (0-1.3) Eosinophils # (Auto) 0.1 10 ^3/uL (0-0.8) Basophils # (Auto) 0 10 ^3/uL (0-0.2) Nucleated Red Blood Cells 0.1 % Sodium Level 139 mmol/L (136-145) Potassium Level 4.1 mmol/L (3.5-5.1) Chloride Level 110 mmol/L (98-107) Carbon Dioxide Level 19 mmol/L (20-31) Anion Gap 10 (5-15) Blood Urea Nitrogen 14 mg/dL (9-23) Creatinine 1.01 mg/dL (0.700-1.30) Glomerular Filtration Rate Calc 82 mL/min (>90) BUN/Creatinine Ratio 13.9 (10.0-20.0) Serum Glucose 138 mg/dL (74-106) Calcium Level 10.0 mg/dL (8.7-10.4) Total Bilirubin 0.7 mg/dL (0.2-1.0) Aspartate Amino Transferase (AST) 20 U/L (13-40) Alanine Aminotransferase (ALT) 12 U/L (7-40) Alkaline Phosphatase 159 U/L (46-116) Total Protein 7.7 g/dL (5.7-8.2) Albumin 5.2 g/dL (3.2-4.8) Troponin I High Sensitivity 6 ng/L (</=54) Triglycerides Level 149 mg/dL (< 150) Cholesterol Level 114 mg/dL (< 200) LDL Cholesterol 48 mg/dL (< 100) HDL Cholesterol 44 mg/dL (40-59) Hemoglobin A1c 6.5 % A1C (<5.7) Lactic Acid Level 1.9 mmol/L (0.4-2.0) Lipase 48 U/L (12-53) Test 12/06/24 17:39 Urine Color Light-yellow (Yellow) Urine Clarity Clear (Clear) Urine pH 6.0 (5.0-9.0) Urine Specific [place] 1.016 (1.001-1.035) Urine Protein Negative (Negative) Urine Ketones Negative (Negative) Urine Blood Negative /uL (Negative) Urine Nitrite Negative (Negative) Urine Bilirubin Negative (Negative) Urine Urobilinogen Normal mg/dL (Negative) Urine Leukocyte Esterase Negative /uL (Negative) Urine RBC <1 /hpf (0 - 3) Urine Microscopic WBC < 1 /HPF (0-3) Urine Squamous Epithelial Cells None seen /hpf (<5) Urine Bacteria None seen /hpf (None Seen) Urine Glucose Normal mg/dL (Normal) Other Laboratory Tests 12/07/24 10:06 Brief Hx & Hospital Course: Patient is a 69 year old male with a past medical history of coronary artery disease status post PCI, type 2 diabetes mellitus, hyperlipidemia presented to the ED with a chief complaint of right-sided groin and flank pain. He reported that he has been having right groin pain which radiates to the flank with the last 5-8 days intermittently which worsens when he coughs, wakes up heavy things. Patient also reports of urinary hesitancy, frequency, urgency. Since the last few days patient was burning sensation of the tip of the penis when he pees. On admission, urinalysis was done which showed no UTI. CT abdomen pelvis mild nonspecific bilateral perineural fat stranding, descending colon and sigmoid diverticulosis without diverticulitis, small fat containing left the right inguinal hernia , moderate left and right-sided fat containing direct inguinal hernia. Patient reported passing stool and flatus. Urine culture showed growth of less [place] [id number] colony-forming units. On physical examination patient had pain in the right groin at the area of the deep inguinal ring with small swelling felt with the patient coughed. Echocardiogram was done which was not formally reported by the beef grader. Patient was discharged in stable condition to home and advised to follow up with in the surgery outpatient clinic and in the Urology outpatient clinic for further management of inguinal hernia and likely BPH. Patient was discharged home on lactulose daily prn and tamsulosin 0.4mg daily for 30 days. Consults/Reason for consult none Operations or Procedures none Condition at Discharge: Good Final Diagnosis/Problems List Right flank pain, pyelonephritis less likely ?recurrence Inguinal hernia right side s/p repair Cholelithiasis ?BPH Discharge Disposition: Home Discharge Instruct/Medications Diet: Consistent carbohydrate Activity: No Restrictions, As Tolerated Activity comment: Avoid lifiting heavy objects and avoid abdominal straining Follow Up/Referral: Follow up with the PCP in one week Follow up with Dr. Lucia in the surgery outpatient clinic in 2 weeks Referral to the Urology outpatient clinic with for further management of Prostatomegaly Medications: as per EMR Discharge Statement: "Patient was advised to return to the ER or call 911 if any headaches, dizziness, shortness of breath, chest pain, abdominal pain, bleeding, fevers, or worsening of medical condition. Patient was counseled about treatment plan, medications, possible side effects, patientverbalized understanding. All questions were answered to the best of my ability. This discharge took greater then 30 minutes in planning, reviewing documentation, counseling the patient, and discussing with other team members." ASSESSMENT ASSESSMENT Assessment Right flank pain, pyelonephritis less likely ?recurrence Inguinal hernia right side s/p repair Cholelithiasis ?BPH FAVIOLA MCFARLANE RESIDENT Dec 07, 2024 18:54
[2024-12-07] MEDS ORDERED: PRAMIPEXOLE DIHYDROCHLORIDE MO 0.25 MG TAB PO SCH (22:00)
[2024-12-07] MEDS ORDERED: ATORVASTATIN 20 MG TAB PO SCH (22:00)
--- NOTE | 2024-12-09 14:33 | DVHSR ---
APPROVED REPORT EXAM: LIMITED Two-dimensional and M-mode echocardiogram with Doppler and color Doppler. Blood Pressure: 104/48 mmHg INDICATION structural heart disease RISK FACTORS Height: 5'7, Weight: 185 DIMENSIONS LVDd (3.8-5.7cm)LA (2D)3.8 (1.9-4.0cm)Aortic Root4.0 (2.0-3.7cm) LVDs (2.5-4.0cm)LA (MM) (1.9-4.0cm)Aortic Cusp Exc2.0 (1.5-2.0cm) EF (%) 54.0 (55-70%)Rt. Atrium3.5 (1.9-4.0cm)Asc. Aorta cm Mitral Valve MitralMitral Stenosis E wave0.79m/sMV Mean GR.mmHg A wave0.80m/sMV Peak GR.37mmHg E/A ratio1.02D MVAcm2 DECEL [id number] 1/2 Tim[place] Aortic Valve Aortic ValveAortic Stenosis V10.98m/Marely Mean GR.2mmHg V21.06m/Marely Peak GR.4mmHg LVOT Diameter2.3 (1.8-2.4cm)Doppler AVA3.84cm2 Other Information Quality : Technically LimitedRhythm : Technically limited study due to body habitus. Conclusion Technically difficult study. Difficult acoustic windows. Off axis views. Sinus rhythm. Aortic root enlargement. Left atrial enlargement. Mild mitral annular calcification. Dilation of the sinuses of Valsalva. The aortic valve appears to be mildly to moderately sclerotic. Can not delineate significant stenosis. The tricuspid is normal . Left ventricular function appears preserved. EF is about 55-60% with normal RV function. Mild TR. No pericardial effusion, no masses or vegetations discernible.
== END 2024-12-07 16:10 | disposition home or self-care (01) | DRG 694 ==
LOC: ER 17:24 → OVERFLOW 23:27 → WEST WING 12-07 01:59
PROVIDERS: ADMIT Student in an Organized Health Care Education/Training Program; ATTEND Student in an Organized Health Care Education/Training Program
DX: N20.0 Calculus of kidney (principal); I10 Essential (primary) hypertension; E78.5 Hyperlipidemia, unspecified; E11.9 Type 2 diabetes mellitus without complications; K80.20 Calculus of gallbladder without cholecystitis without obstruction; K57.30 Diverticulosis of large intestine without perforation or abscess without bleeding; E66.01 Morbid (severe) obesity due to excess calories; K40.90 Unilateral inguinal hernia, without obstruction or gangrene, not specified as recurrent; N40.0 Benign prostatic hyperplasia without lower urinary tract symptoms; Z79.84 Long term (current) use of oral hypoglycemic drugs; Z79.899 Other long term (current) drug therapy; Z88.6 Allergy status to analgesic agent; Z91.013 Allergy to seafood
CPT/HCPCS: 36415; 74176; 76700; 80053; 80061; 81001; 82962; 83036; 83605; 83690; 84484; 85025; 87040; 87086; 93005; 93306; 96365; G0378; J1815

== ENCOUNTER → 2025-01-09 | Outpatient (CLI) | payer MEDICAID, OTHER ==
[~2025-01-09] MED LIST changes: +ALBU108A5 INH; -AZIT-185 PO; +LACT10SO3 PO; -MET25T PO; -METH4PAK PO; +TAMS0.4C39 PO
[2025-01-09 11:06] LABS: Urine Blood Negative /uL (Negative); Urine Clarity Clear (Clear); Urine Color Colorless (Yellow); Urine Protein, UAD Negative (Negative); Urine Specific Gravity 1.004 (1.001-1.035); Urine Urobilinogen Normal (Negative); Urine pH 6.5 (5.0-9.0)
[2025-01-09 11:10] LABS: Basophils # (auto) 0 10 ^3/uL (0-0.2); Basophils % (auto) 0.5 % (0.0-2.0); Eosinophils # (auto) 0.2 10 ^3/uL (0-0.8); Eosinophils % (auto) 2.7 % (0.0-7.0); Hemoglobin 14.8 g/dL (13.5-17.5); Lymphocytes # (auto) 1.5 10 ^3/uL (0.4-5.4); Lymphocytes % (auto) 22.1 % (10.0-50.0); Mean Corpuscular Hemoglobin 29.1 pg (28.0-32.0); Mean Corpuscular Hgb Conc. 33.7 g/dL (32.0-36.0); Mean Corpuscular Volume 86.4 fL (80.0-100.0); Monocytes # (auto) 0.5 10 ^3/uL (0-1.3); Monocytes % (auto) 6.8 % (0.0-12.0); Neutrophils # (auto) 4.6 10 ^3/uL (1.6-8.6); Neutrophils % (auto) 67.9 % (37.0-80.0); Nucleated Red Blood Cells % 0.1 %; Platelet Count (auto) 201 10^3/uL (140-450); Red Cell Distribution Width 16.7 % (11.8-14.3); White Blood Cell 6.8 10^3/uL (4.4-10.8)
[2025-01-09 11:24] LABS: Creatinine, Urine 26.38 mg/dL (30.0-125.0)
[2025-01-09 11:27] LABS: Prostate Specific Antigen 0.48 ng/mL (0.0-4.0)
[2025-01-09 11:29] LABS: Alanine Aminotransferase 23 U/L (7-40); Anion Gap 5 (5-15); Aspartate Aminotransferase 15 U/L (13-40); BUN/Creatinine Ratio 9.4 (10.0-20.0); Bilirubin, Total 0.6 mg/dL (0.2-1.0); Calcium 10.1 mg/dL (8.7-10.4); Carbon Dioxide 25 mmol/L (20-31); Cholesterol 108 mg/dL (< 200); Glucose 96 mg/dL (74-106); HDL Cholesterol 46 mg/dL (40-59); LDL Cholesterol 44 mg/dL (< 100); Potassium 3.9 mmol/L (3.5-5.1); Sodium 139 mmol/L (136-145); Total Protein 7.6 g/dL (5.7-8.2); Triglycerides 141 mg/dL (< 150)
[2025-01-09 11:46] LABS: Alkaline Phosphatase 161 U/L (46-116); Blood Urea Nitrogen 9 mg/dL (9-23); Chloride 109 mmol/L (98-107)
[2025-01-10 10:31] LABS: Hepatitis B Core Total AB Negative (Negative)
[2025-01-10 11:12] LABS: Hepatitis A Total Antibody Positive (Negative); Hepatitis B Surface Antibody Positive (Negative); Hepatitis B Surface Antigen Negative (Negative); Hepatitis C Antibody Negative (Negative)
[2025-01-10 13:07] LABS: Chlamydia Trachomatis, NAA Negative (Negative); Neisseria gonorrhoeae, NAA Negative (Negative)
== END | disposition home or self-care (01) ==
LOC: LAB 10:27
PROVIDERS: ATTEND Nurse Practitioner Family
DX: I11.0 Hypertensive heart disease with heart failure (principal); I50.9 Heart failure, unspecified; J44.1 Chronic obstructive pulmonary disease with (acute) exacerbation; E55.9 Vitamin D deficiency, unspecified; E78.5 Hyperlipidemia, unspecified; Z12.5 Encounter for screening for malignant neoplasm of prostate; Z12.11 Encounter for screening for malignant neoplasm of colon; Z11.3 Encounter for screening for infections with a predominantly sexual mode of transmission; R35.1 Nocturia; R73.03 Prediabetes; B99.8 Other infectious disease
CPT/HCPCS: 36415; 80053; 80061; 81003; 82043; 82570; 82607; 83036; 84153; 84443; 85025; 86703; 86704; 86706; 86708; 86780; 86803; 87340

== ENCOUNTER 2025-07-17 10:02 | Emergency (ER) | payer MEDICAID, OTHER ==
[~2025-07-17] VITALS: Ht 167.6 cm; Wt 74.1 kg
--- NOTE | 2025-07-17 10:57 | ED.PDOC ---
Musculoskeletal HPI Comments 70-year-old male who presents to the ED for chief complaint of lower extremity pain. The patient said he had a slip and fall and was admitted at [facility] on 06/07 and discharged 06/12. The patient stated he had follow up with Dr. Khan at [facility] for orthopedic follow up on 06/27. The patient states he was told by orthopedic provider to come to the ED on 06/27 for further evaluation. Patient states that he did not come immediately to local ED for further evaluation and came today. The patient in the ED has not noted cast to the left foot without a swelling to the left toes. The patient in the ED otherwise has stable vitals. The patient denies any other symptoms. Chief Complaint: Lower Extremity Time Seen by MD: 10:49 Primary Care Provider: VERA Yeh Notes: Medications, Allergies Allergies: Coded Allergies: Aspirin (Verified Allergy, Severe, RASH, 06/03/20) Fish Allergy (Verified Allergy, Unknown, 08/03/21) Home Meds Active Scripts Tamsulosin Hcl (Tamsulosin Hcl) 0.4 Mg Cap, 0.4 MG PO DAILY for 30 Days, #30 CAP 0 Refills Prov:FAVIOLA MCFARLANE 12/07/24 Lactulose (Lactulose) 10 Gm/15 Ml Susanna, 10 GM PO DAILY for 30 Days, #450 ML 0 Refills Prov:FAVIOLA MCFARLANE 12/07/24 Ropinirole Hydrochloride (Ropinirole Hcl) 2 Mg Tab, 2 MG PO TID for 14 Days, #42 TAB 0 Refills Prov:FAVIOLA MCFARLANE 12/07/24 Ibuprofen Micronized (Ibuprofen) 800 Mg Tab, 800 MG PO Q8HP PRN, #30 TAB Prov:DANE CABALLERO PAC 05/19/23 Meclizine Hcl (Meclizine Hcl) 25 Mg Tab, 25 MG PO Q8HP PRN for 14 Days, #42 TAB Prov:ERLIN CLARK TELECOM SPECIALIST 03/26/23 Atorvastatin Calcium (Lipitor) 40 Mg Tab, 1 TAB PO QPM, #90 TAB 1 Refill Prov:CHEO LAI MD 02/24/23 Rivaroxaban (XARELTO) 10 Mg Tab, 0.25 TAB PO BID, #90 TAB Prov:CHEO LAI MD 02/24/23 Clopidogrel Bisulfate (Plavix) 75 Mg Tab, 1 TAB PO DAILY, #90 TAB 1 Refill Prov:CHEO LAI MD 02/24/23 Nifedipine (Nifedipine ER) 30 Mg Tab, 30 MG PO DAILY for 30 Days, #30 TAB Prov:YINA BUSTAMANTE TELECOM SPECIALIST 02/18/23 Acetaminophen (Acetaminophen) 500 Mg Tab, 500 MG PO QID, #30 TAB 0 Refills Prov:AIDA OBANDO 12/16/22 Famotidine (PEPCID TABLET) 20 Mg Tb, 1 TAB PO BID PRN, #30 TAB 5 Refills Prov:ACE GRIER MD 06/10/22 Ondansetron (Zofran) 4 Mg Tab, 4 MG PO TIDPRN PRN, #15 TAB Prov:ACE GRIER MD 06/10/22 Acetaminophen (Acetaminophen Extra Stren) 500 Mg Tab, 1000 MG PO Q6HP PRN, #30 TAB Prov:ACE GRIER MD 06/10/22 Reported Medications Albuterol Sulfate (Albuterol Sulfate Hfa) 108 Mcg/Act Aer, 2 INH Q4HPRN PRN 12/07/24 Hydroxyzine Hcl (Hydroxyzine Hcl) 10 Mg Tab, 10 MG PO HS for 30 Days, MG 02/28/22 Metformin Hydrochloride (Metformin Hcl) 500 Mg Tab, 500 MG PO IBID for 30 Days, MG 02/27/22 Trazodone HCl (Trazodone Hydrochloride) 50 Mg Tab, 1 TAB PO HS, TAB 06/28/20 Tiotropium Caneadea Monohydrate (Spiriva Handihaler) 18 Mcg Cap, 18 MCG IN, CAP 06/28/20 Gabapentin (Gabapentin) 100 Mg Cap, 3 CAP PO HS for 30 Days, MG 06/28/20 Omeprazole (Gnp Omeprazole) 20 Mg Tab, 1 TAB PO DAILY, #90 TAB 1 Refill 06/28/20 Information Source: Patient Mode of Arrival: Wheelchair Brought in by: Self Past Medical History PAST MEDICAL HISTORY: Anxiety, Asthma, CAD, DM, High Lipids, HTN Surgical History: Hernia Repair Family History Family History: Reviewed,noncontributory to illness Social History Smoker: Cigarettes, Less Than 1 Pack/Day Alcohol: Denies ETOH Use Drugs: Denies Drug Use Lives In: Home Constitutional: denies: chills, diaphoresis, fatigue, fever, malaise, sweats, weakness, others EENTM: denies: blurred vision, double vision, ear bleeding, ear discharge, ear drainage, ear pain, ear ringing, eye pain, eye redness, hearing loss, mouth pain, mouth swelling, nasal discharge, nose bleeding, nose congestion, nose pain, photophobia, tearing, throat pain, throat swelling, voice changes, others Respiratory: denies: cough, hemoptysis, orthopnea, SOB at rest, shortness of breath, SOB with excertion, stridor, wheezing, others Cardiovascular: denies: chest pain, dizzy spells, diaphoresis, Dyspnea on exertion, edema, irregular heart beat, left arm pain, lightheadedness, palpitations, PND, syncope, others Gastrointestinal: denies: abdomen distended, abdominal pain, blood streaked bowels, constipated, diarrhea, dysphagia, difficulty swallowing, hematemesis, melena, nausea, poor appetite, poor fluid intake, rectal bleeding, rectal pain, vomiting, others Genitourinary: denies: burning, dysuria, flank pain, frequency, hematuria, incontinence, penile discharge, penile sore, pain, testicle pain, testicle swelling, urgency, others Neurological: denies: dizziness, fainting, headache, left sided numbness, left sided weakness, numbness, paresthesia, pre-existing deficit, right sided numb ness, right sided weakness, seizure, speech problems, tingling, tremors, weakness, others Musculoskeletal: reports: joint pain (Left lower extremity), joint swelling (Left lower extremity); denies: back pain, gout, muscle pain, muscle stiffness, neck pain, others Integumetry: denies: bruises, change in color, change in hair/nails, dryness, laceration, lesions, lumps, rash, wounds, others Allergic/Immunocompromised: denies: Difficulty Healing, Frequent Infections, Hives, Itching, others Hematologic/Lymphatic: denies: anemia, blood clots, easy bleeding, easy bruising, swollen glands, others Endocrine: denies: excessive hunger, excessive sweating, excessive thirst, excessive urination, flushing, intolerance to cold, intolerance to heat, unexplained weight gain, unexplained weight loss, others Psychiatric: denies: anxiety, bipolar disorder, depression, hopeless, panic disorder, schizophrenia, sleepless, suicidal, others All Other Systems: Reviewed and Negative Physical Exam General Appearance: No Apparent Distress, Normal HEENT: Normal ENT Inspection, Pharynx Normal, TMs Normal Neck: Full Range of Motion, Non-Tender, Normal, Normal Inspection Respiratory: Chest Non-Tender, Lungs Clear, No Accessory Muscle Use, No Respiratory Distress, Normal Breath Sounds Cardiovascular: No Edema, No JVD, No Murmur, No Gallop, Normal Peripheral Pulses, Regular Rate/Rhythm Breast Exam: Deferred Gastrointestinal: No Organomegaly, Non Tender, No Pulsatile Mass, Normal Bowel Sounds, Soft Genitalia: Deferred Pelvic: Deferred Rectal: Deferred Extremities: Other (Swelling to the dorsal aspect of the left foot, 2+ swelling noted, DP pulses nonpalpable, unable to move toes, neurovascularly intact, 13 states it is noted to the left leg, surgical consent incision noted to the left foot malleolus) Musculoskeletal : Apperance: Normal Neurologic: Alert, cocktail server II-XII nml as Tested, No Motor Deficits, Normal Affect, Normal Mood, No Sensory Deficits Cerebellar Function: Normal Reflexes: Normal Skin: Dry, Normal Color, Warm Lymphatic: No Adenopathy Was a procedure done? Was a procedure done?: No Differential Diagnosis EXT Differential Diagnosis: Cellulitis, Deep Vein Thrombosis, Fracture, Sprain, Septic, Neurovascular injury, Arthritis X-Ray, Labs, Meds, VS Vital Signs Date Time Temp Pulse Resp B/P (MAP) Pulse Ox O2 Delivery O2 Flow Rate FiO2 07/17/25 13:17 98.4 86 16 118/72 (87) 95 98.4 07/17/25 13:17 86 16 96 Room Air 07/17/25 10:09 98.2 89 19 114/71 95 98.2 Lab Test 07/17/25 12:10 Range/Units White Blood Count 6.3 4.4-10.8 10^3/uL Red Blood Count 4.50 4.5-5.90 10^6/uL Hemoglobin 14.0 13.5-17.5 g/dL Hematocrit 40.2 L 41.0-53.0 % Mean Corpuscular Volume 89.4 80.0-100.0 fL Mean Corpuscular Hemoglobin 31.1 28.0-32.0 pg Mean Corpuscular Hemoglobin Concent 34.8 32.0-36.0 g/dL Red Cell Distribution Width 14.6 H 11.8-14.3 % Platelet Count 226 140-450 10^3/uL Mean Platelet Volume 7.3 6.9-10.8 fL Neutrophils (%) (Auto) 70.2 37.0-80.0 % Lymphocytes (%) (Auto) 20.5 10.0-50.0 % Monocytes (%) (Auto) 7.1 0.0-12.0 % Eosinophils (%) (Auto) 1.6 0.0-7.0 % Basophils (%) (Auto) 0.6 0.0-2.0 % Neutrophils # (Auto) 4.5 1.6-8.6 10 ^3/uL Lymphocytes # (Auto) 1.3 0.4-5.4 10 ^3/uL Monocytes # (Auto) 0.4 0-1.3 10 ^3/uL Eosinophils # (Auto) 0.1 0-0.8 10 ^3/uL Basophils # (Auto) 0 0-0.2 10 ^3/uL Nucleated Red Blood Cells 0.0 % Sodium Level 137 136-145 mmol/L Potassium Level 3.8 3.5-5.1 mmol/L Chloride Level 103 98-107 mmol/L Carbon Dioxide Level 23 20-31 mmol/L Anion Gap 11 5-15 Blood Urea Nitrogen 10 9-23 mg/dL Creatinine 0.92 0.700-1.30 mg/dL Glomerular Filtration Rate Calc 91 >90 mL/min BUN/Creatinine Ratio 10.9 10.0-20.0 Serum Glucose 96 74-106 mg/dL Calcium Level 10.0 8.7-10.4 mg/dL [facility] [id number] [place] [id number] Ph: [phone] DIAGNOSTIC IMAGING Diagnostic Imaging Report : [id number] Signed PATIENT: ALFONZO DE LEON ACCT: [id number] UNIT: [id number] : 1955 LOC: ER ROOM / BED: / AGE / SEX: 70 / M ADM STATUS: REG ER SERVICE 1106 ORDERING PHYSICIAN: WANG COLBERT NP PROCEDURE(s): LLDVT - LT Lower DVT REASON: Left leg pain ORDER NUMBER(s): [id number], ACCESSION NUMBER(s): [id number] Technique: Real-time ultrasound imaging, with color Doppler and compression of the left common femoral vein, femoral vein, greater saphenous vein, and popliteal vein. Indication: Left leg pain Comparison: LLDVT on DOS: 02/26/22 Findings: There is normal compressibility and flow augmentation in all of the imaged deep veins. There are no filling defects. Impression: No evidence of DVT in the left lower extremity ATED BY: ANNA CARBALLO MD DICTATED DATE/TIME: 07/17/251209 SIGNED BY: ANNA CARBALLO MD SIGNED DATE/TIME: 07/17/251209 CC: [place] [id number] Ph: [phone] DIAGNOSTIC IMAGING Diagnostic Imaging Report : [id number] Signed PATIENT: ALFONZO DE LEON ACCT: [id number] UNIT: [id number] : 1955 LOC: ER ROOM / BED: / AGE / SEX: 70 / M ADM STATUS: REG ER SERVICE 1106 ORDERING PHYSICIAN: WANG COLBERT NP PROCEDURE(s): LLEAD - Lt Low Ext Art Duplex REASON: Left leg pain. R/o occlusion ORDER NUMBER(s): [id number], ACCESSION NUMBER(s): [id number] Left Lower Extremity Arterial Duplex Clinical History: Left leg pain. R/o occlusion Comparison: US LT LOWER DVT on DOS: 07/17/25, BILAT LOW EXT ART DUPLEX on DOS: 04/27/22, MRI L ANKLE WO CONTRAST on DOS: 04/27/22, LLDVT on DOS: 02/26/22, LANKL on DOS: 12/13/21 Technique: Duplex Doppler evaluation including color Doppler and spectral/pulsed waveform analysis of the lower extremity arteries was performed. Findings: LEFT: Peak systolic velocities are as follows: RIDE ATTENDANT 32 cm/s Deep femoral 39 cm/s SFA proximal 30 cm/s SFA mid-portion 26 cm/s SFA distal 30 cm/s Popliteal 60 cm/s Posterior tibial nv cm/s Anterior tibial nv cm/s Peroneal nv cm/s Dorsalis pedis nv cm/s The waveforms are monophasic with diastolic flow. IMPRESSION: No hemodynamically significant stenosis based on peak systolic velocity criteria. Nonvisualization of flow in the posterior tibial artery, anterior tibial artery, peroneal artery and dorsalis pedis. Diffuse Monophasic arterial waveforms and diffusely decreased velocities are suggestive of underlying peripheral arterial disease. Atherosclerotic plaque is present in the common femoral artery. REFERENCE VALUES, [facility] ([facility]) vascular Imaging Lab Criteria: Peak systolic velocity ranges (in cm/sec) are as follows: <150 cm/s - <20 % stenosis 150-200 cm/s - 20-49% stenosis 200-300 cm/s - 50-75% stenosis >300 cm/s -> 75% stenosis ATED BY: KELVIN FISHER MD DICTATED DATE/TIME: 07/17/251213 SIGNED BY: KELVIN FISHER MD SIGNED DATE/TIME: 07/17/251213 CC: [place] [id number] Ph: [phone] DIAGNOSTIC IMAGING Diagnostic Imaging Report : [id number] Signed PATIENT: ALFONZO DE LEON ACCT: [id number] UNIT: [id number] : 1955 LOC: ER ROOM / BED: / AGE / SEX: 70 / M ADM STATUS: REG ER SERVICE 1058 ORDERING PHYSICIAN: WANG COLBERT NP PROCEDURE(s): LANKL - L ANKLE 3 VIEW REASON: Fracture? ORDER NUMBER(s): [id number], ACCESSION NUMBER(s): [id number] Indication: Fracture Technique: XY L ANKLE 3 VIEWXY Comparison: 05/19/2023 FINDINGS/IMPRESSION: Distal fibular fixation plate with syndesmotic screws.m There is a medial malleolar fracture with fragment measuring 1.8 cm which could represent acute fracture or non healed old fracture. Correlate with pain symptoms and point tenderness. Diffuse left ankle soft tissue edema. Osteopenia. ATED BY: ANNA CARBALLO MD DICTATED DATE/TIME: 07/17/25 1154 SIGNED BY: ANNA CARBALLO MD SIGNED DATE/TIME: 07/17/25 1154 CC: X-Ray, Labs, Meds, VS Comment Patient arrives alert and oriented, ABC's intact, afebrile, vital signs stable, saturating well in room air Peripheral IV insertion+ labs were ordered. CBC was ordered to exclude anemia, blood loss, or infection. BMP was ordered to exclude electrolyte abnormalities, renal failure, dehydration, hyperglycemia Diagnostic imaging ordered by me and results interpreted by radiology : Left ankle x-ray, left lower DVT, left lower extremity artery duplex Patient is stable for discharge at this time. No signs of arterial nerve damage. External notes reviewed. Test results and diagnostic imaging interpreted. All diagnostic findings, discharge care, education and instructions provided Follow-up with PCP in 2 to 3 days Patient verbalized understanding and agreed to treatment plan Vital signs stable, afebrile, no acute distress noted Patient ambulatory with strong steady gait Advised to return precautions for any new or worsening symptoms, return to ER immediately for re-evaluation Patient is aware that the purpose of this visit was for an acute medical emergency requiring emergent stabilization. Chronic conditions, including malignancies have not been ruled out. Patient is instructed to follow up with PCP as directed and discharge instructions for continued care and workup. If unable to arrange follow-up, patient is to return to the emergency department for reassessment. Patient (parent or legal guardian if applicable) was given verbal and written discharge instructions and acknowledges understanding. Additional MDM Review of External, Non-ED records: External records reviewed. Discussion with independent historian (EMS, family) history obtained from the patient/parents (if applicable) at bedside Chronic conditions affecting care: None Social determinants of health affecting care: None Consideration of admission (observation or admission): I considered escalation of care to admission for this patient, however given the reassuring workup, the patient is safe for outpatient management. Discussion with the Radiology: No Tests considered but not performed: Prescription medication considered but not given: 12 lead EKG interpretation: Time of 1ST Reevaluation: 11:20 Reevaluation 1ST: Improved Patient Education/Counseling: Diagnosis, Treatment Family Education/Counseling: No Family Present Departure 1 Departure Time of Disposition: 12:59 Impression: Primary Impression: PAD (peripheral artery disease) Additional Impressions: Osteopenia Qualified Codes: M85.872 - Other specified disorders of bone density and structure, left ankle and foot Fracture of distal end of fibula with routine healing Qualified Codes: S82.832D - Other fracture of upper and lower end of left fibula, subsequent encounter for closed fracture with routine healing Leg pain Qualified Codes: M79.605 - Pain in left leg Disposition: HOME / SELF CARE / HOMELESS Condition: Fair Critical Care Note Critical Care Time?: No Stability Stability form required: No Heart Score Heart Score: Heart Score Response (Comments) Value History N/A 0 EKG N/A 0 Age N/A 0 Risk Factors N/A 0 Troponin N/A 0 Total 0 I personally scribed for WANG COLBERT NP (SONAL) on 07/17/25 at 10:57. Electronically submitted by Tanisha Hays (MAE). I personally scribed for WANG COLBERT NP (GREGORYOMA) on 07/17/25 at 11:41. Electronically submitted by Tanisha Hays (MAE). I personally scribed for WANG COLBERT NP (GREGORYOMA) on 07/17/25 at 12:40. Electronically submitted by Tanisha Hays (MAE). WANG COLBERT TELECOM SPECIALIST Jul 17, 2025 10:57
--- NOTE | 2025-07-17 11:51 | DVH ---
Indication: Fracture Technique: XY L ANKLE 3 VIEWXY Comparison: 05/19/2023 FINDINGS/IMPRESSION: Distal fibular fixation plate with syndesmotic screws.m There is a medial malleolar fracture with fragment measuring 1.8 cm which could represent acute fracture or non healed old fracture. Correlate with pain symptoms and point tenderness. Diffuse left ankle soft tissue edema. Osteopenia.
--- NOTE | 2025-07-17 12:08 | DVH ---
Technique: Real-time ultrasound imaging, with color Doppler and compression of the left common femoral vein, femoral vein, greater saphenous vein, and popliteal vein. Indication: Left leg pain Comparison: LLDVT on DOS: 02/26/22 Findings: There is normal compressibility and flow augmentation in all of the imaged deep veins. There are no filling defects. Impression: No evidence of DVT in the left lower extremity
--- NOTE | 2025-07-17 12:16 | DVH ---
Left Lower Extremity Arterial Duplex Clinical History: Left leg pain. R/o occlusion Comparison: US LT LOWER DVT on DOS: 07/17/25, BILAT LOW EXT ART DUPLEX on DOS: 04/27/22, MRI L ANKLE WO CONTRAST on DOS: 04/27/22, LLDVT on DOS: 02/26/22, LANKL on DOS: 12/13/21 Technique: Duplex Doppler evaluation including color Doppler and spectral/pulsed waveform analysis of the lower extremity arteries was performed. Findings: LEFT: Peak systolic velocities are as follows: CARE PROVIDER 32 cm/s Deep femoral 39 cm/s SFA proximal 30 cm/s SFA mid-portion 26 cm/s SFA distal 30 cm/s Popliteal 60 cm/s Posterior tibial nv cm/s Anterior tibial nv cm/s Peroneal nv cm/s Dorsalis pedis nv cm/s The waveforms are monophasic with diastolic flow. IMPRESSION: No hemodynamically significant stenosis based on peak systolic velocity criteria. Nonvisualization of flow in the posterior tibial artery, anterior tibial artery, peroneal artery and dorsalis pedis. Diffuse Monophasic arterial waveforms and diffusely decreased velocities are suggestive of underlying peripheral arterial disease. Atherosclerotic plaque is present in the common femoral artery. REFERENCE VALUES, [facility] ([facility]) vascular Imaging Lab Criteria: Peak systolic velocity ranges (in cm/sec) are as follows: <150 cm/s - <20 % stenosis 150-200 cm/s - 20-49% stenosis 200-300 cm/s - 50-75% stenosis >300 cm/s -> 75% stenosis
[2025-07-17 12:34] LABS: Hematocrit 40.2 % (41.0-53.0); Hemoglobin 14.0 g/dL (13.5-17.5); Mean Corpuscular Hemoglobin 31.1 pg (28.0-32.0); Mean Corpuscular Volume 89.4 fL (80.0-100.0); Nucleated Red Blood Cells % 0.0 %
[2025-07-17 12:44] LABS: Chloride 103 mmol/L (98-107); Potassium 3.8 mmol/L (3.5-5.1); Sodium 137 mmol/L (136-145)
[2025-07-17 12:45] LABS: Anion Gap 11 (5-15); Carbon Dioxide 23 mmol/L (20-31)
[2025-07-17 12:46] LABS: Calcium 10.0 mg/dL (8.7-10.4)
[2025-07-17 12:50] LABS: Glucose 96 mg/dL (74-106)
[2025-07-17 12:51] LABS: BUN/Creatinine Ratio 10.9 (10.0-20.0); Blood Urea Nitrogen 10 mg/dL (9-23)
[2025-07-17 13:17] VITALS: BP 118/72; PULSE 86; RESP 16; TEMP 98.4; O2SAT 96
== END 2025-07-17 13:18 | disposition home or self-care (01) ==
LOC: ER 10:02
DX: S82.832A Other fracture of upper and lower end of left fibula, initial encounter for closed fracture (principal); E11.51 Type 2 diabetes mellitus with diabetic peripheral angiopathy without gangrene; F41.9 Anxiety disorder, unspecified; I10 Essential (primary) hypertension; I25.10 Atherosclerotic heart disease of native coronary artery without angina pectoris; J45.909 Unspecified asthma, uncomplicated; F17.210 Nicotine dependence, cigarettes, uncomplicated; Z79.01 Long term (current) use of anticoagulants; Z79.899 Other long term (current) drug therapy; Z88.6 Allergy status to analgesic agent; Z98.890 Other specified postprocedural states
CPT/HCPCS: 29515; 36415; 73610; 80048; 85025; 93926; 93971

== ENCOUNTER 2025-07-19 10:10 | Emergency (ER) | payer MEDICAID, OTHER ==
[~2025-07-19] VITALS: Ht 167.6 cm; Wt 76.2 kg
--- NOTE | 2025-07-19 10:55 | ED.PDOC ---
History of Present Illness HPI Comments A 70 YEAR OLD MALE PRESENTS TO THE ED WITH COMPLAINT OF FOLLOW UP VISIT. PATIENT STATES HE WAS HERE IN THE ED 2 DAYS AGO WHERE AN ULTRASOUND, AN ARTERIAL ULTRASOUND, AND LABS WERE DONE ALL OF WHICH WAS NORMAL. PATIENT REPORTS HE RECEIVED A PHONE CALL FROM THE PROVIDER THAT SAW HIM 2 DAYS AGO, BUT HE WAS NOT SURE WHAT THIS PHONE CALL WAS ABOUT, PROMPTING HIM TO COME TO THE ED TODAY FOR A FOLLOW UP. PATIENT DENIES FEVER, CHILLS, SHORTNESS OF BREATH, CHEST PAIN, ABDOMINAL PAIN, NAUSEA, VOMITING, HEADACHE, OR OTHER COMPLAINTS. NO OTHER SYMPTOMS OR MODIFYING FACTORS AT THIS TIME. PATIENT IS ALERT, ORIENTED X 4, AND HAS STEADY GAIT. Chief Complaint: Lower Extremity Time Seen by MD: 10:21 Primary Care Provider: VERA Reviewed Notes: Nurses Notes, Medications, Allergies Allergies: Coded Allergies: Aspirin (Verified Allergy, Severe, RASH, 06/03/20) Fish Allergy (Verified Allergy, Unknown, 08/03/21) Home Meds Active Scripts Tamsulosin Hcl (Tamsulosin Hcl) 0.4 Mg Cap, 0.4 MG PO DAILY for 30 Days, #30 CAP 0 Refills Prov:FAVIOLA MCFARLANE RESIDENT 12/07/24 Lactulose (Lactulose) 10 Gm/15 Ml Susanna, 10 GM PO DAILY for 30 Days, #450 ML 0 Refills Prov:FAVIOLA MCFARLANE 12/07/24 Ropinirole Hydrochloride (Ropinirole Hcl) 2 Mg Tab, 2 MG PO TID for 14 Days, #42 TAB 0 Refills Prov:FAVIOLA MCFARLANE 12/07/24 Ibuprofen Micronized (Ibuprofen) 800 Mg Tab, 800 MG PO Q8HP PRN, #30 TAB Prov:DANE CABALLERO PAC 05/19/23 Meclizine Hcl (Meclizine Hcl) 25 Mg Tab, 25 MG PO Q8HP PRN for 14 Days, #42 TAB Prov:ERLIN CLARK NP 03/26/23 Atorvastatin Calcium (Lipitor) 40 Mg Tab, 1 TAB PO QPM, #90 TAB 1 Refill Prov:CHEO LAI MD 02/24/23 Rivaroxaban (XARELTO) 10 Mg Tab, 0.25 TAB PO BID, #90 TAB Prov:CHEO LAI MD 02/24/23 Clopidogrel Bisulfate (Plavix) 75 Mg Tab, 1 TAB PO DAILY, #90 TAB 1 Refill Prov:CHEO LAI MD 02/24/23 Nifedipine (Nifedipine ER) 30 Mg Tab, 30 MG PO DAILY for 30 Days, #30 TAB Prov:YINA BUSTAMANTE ELECTRICAL SOLDERER 02/18/23 Acetaminophen (Acetaminophen) 500 Mg Tab, 500 MG PO QID, #30 TAB 0 Refills Prov:AIDA OBANDO 12/16/22 Famotidine (PEPCID TABLET) 20 Mg Tb, 1 TAB PO BID PRN, #30 TAB 5 Refills Prov:ACE GRIER MD 06/10/22 Ondansetron (Zofran) 4 Mg Tab, 4 MG PO TIDPRN PRN, #15 TAB Prov:ACE GRIER MD 06/10/22 Acetaminophen (Acetaminophen Extra Stren) 500 Mg Tab, 1000 MG PO Q6HP PRN, #30 TAB Prov:ACE GRIER MD 06/10/22 Reported Medications Albuterol Sulfate (Albuterol Sulfate Hfa) 108 Mcg/Act Aer, 2 INH Q4HPRN PRN 12/07/24 Hydroxyzine Hcl (Hydroxyzine Hcl) 10 Mg Tab, 10 MG PO HS for 30 Days, MG 02/28/22 Metformin Hydrochloride (Metformin Hcl) 500 Mg Tab, 500 MG PO IBID for 30 Days, MG 02/27/22 Trazodone HCl (Trazodone Hydrochloride) 50 Mg Tab, 1 TAB PO HS, TAB 06/28/20 Tiotropium [place] Monohydrate (Spiriva Handihaler) 18 Mcg Cap, 18 MCG IN, CAP 06/28/20 Gabapentin (Gabapentin) 100 Mg Cap, 3 CAP PO HS for 30 Days, MG 06/28/20 Omeprazole (Gnp Omeprazole) 20 Mg Tab, 1 TAB PO DAILY, #90 TAB 1 Refill 06/28/20 Information Source: Patient Mode of Arrival: Ambulatory Severity: None Timing: Days Duration: Since onset, Days Prehospital treatment: None Medication Refill: For: Other (FOLLOW UP VISIT) Past Medical History PAST MEDICAL HISTORY: Anxiety, Asthma, CAD, DM, High Lipids, HTN Surgical History: Hernia Repair Family History Family History: Reviewed,noncontributory to illness Social History Smoker: Cigarettes, Less Than 1 Pack/Day Alcohol: Denies ETOH Use Drugs: Denies Drug Use Lives In: Home Constitutional: denies: chills, diaphoresis, fatigue, fever, malaise, sweats, weakness, others EENTM: denies: blurred vision, double vision, ear bleeding, ear discharge, ear drainage, ear pain, ear ringing, eye pain, eye redness, hearing loss, mouth pain, mouth swelling, nasal discharge, nose bleeding, nose congestion, nose pain, photophobia, tearing, throat pain, throat swelling, voice changes, others Respiratory: denies: cough, hemoptysis, orthopnea, SOB at rest, shortness of breath, SOB with excertion, stridor, wheezing, others Cardiovascular: denies: chest pain, dizzy spells, diaphoresis, Dyspnea on exertion, edema, irregular heart beat, left arm pain, lightheadedness, palpitations, PND, syncope, others Gastrointestinal: denies: abdomen distended, abdominal pain, blood streaked bowels, constipated, diarrhea, dysphagia, difficulty swallowing, hematemesis, melena, nausea, poor appetite, poor fluid intake, rectal bleeding, rectal pain, vomiting, others Genitourinary: denies: burning, dysuria, flank pain, frequency, hematuria, incontinence, penile discharge, penile sore, pain, testicle pain, testicle swelling, urgency, others Neurological: denies: dizziness, fainting, headache, left sided numbness, left sided weakness, numbness, paresthesia, pre-existing deficit, right sided numbness, right sided weakness, seizure, speech problems, tingling, tremors, weakness, others Musculoskeletal: reports: joint pain, joint swelling; denies: back pain, gout, muscle pain, muscle stiffness, neck pain, others Integumetry: denies: bruises, change in color, change in hair/nails, dryness, laceration, lesions, lumps, rash, wounds, others Allergic/Immunocompromised: denies: Difficulty Healing, Frequent Infections, Hives, Itching, others Hematologic/Lymphatic: denies: anemia, blood clots, easy bleeding, easy bruising, swollen glands, others Endocrine: denies: excessive hunger, excessive sweating, excessive thirst, excessive urination, flushing, intolerance to cold, intolerance to heat, unexplained weight gain, unexplained weight loss, others Psychiatric: denies: anxiety, bipolar disorder, depression, hopeless, panic disorder, schizophrenia, sleepless, suicidal, others All Other Systems: Reviewed and Negative Physical Exam General Appearance: No Apparent Distress, Normal HEENT: Normal ENT Inspection, PERRL/EOMI, Pharynx Normal, TMs Normal Neck: Full Range of Motion, Non-Tender, Normal, Normal Inspection Respiratory: Chest Non-Tender, Lungs Clear, No Accessory Muscle Use, No Respiratory Distress, Normal Breath Sounds Cardiovascular: No Edema, No JVD, No Murmur, No Gallop, Normal Peripheral P ulses, Regular Rate/Rhythm Breast Exam: Deferred Gastrointestinal: No Organomegaly, Non Tender, No Pulsatile Mass, Normal Bowel Sounds, Soft Genitalia: Deferred Pelvic: Deferred Rectal: Deferred Extremities: Decreased range of motion (SLIGHTLY. ), No calf tenderness, Normal capillary refill, No pedal edema, Tender (LEFT ANKLE WITH MILD SWELLING, NO OPEN WOUND AND DEFORMITY. ) Musculoskeletal : Apperance: Normal Neurologic: Alert, studio assistant II-XII nml as Tested, No Motor Deficits, Normal Affect, Normal Mood, No Sensory Deficits Cerebellar Function: Normal Reflexes: Normal Skin: Dry, Normal Color, Warm Peripheral Pulses: 2+ carotid (R), 2+ carotid (L), 2+ dorsalis pedis (R), 2+ dorsalis pedis (L) Lymphatic: No Adenopathy Was a procedure done? Was a procedure done?: No Differential Dx Considerations may include: FOLLOW UP VISIT, WELL CHECK, WELL PHYSICAL EXAMINATION X-Ray, Labs, Meds, VS Vital Signs Date Time Temp Pulse Resp B/P (MAP) Pulse Ox O2 Delivery O2 Flow Rate FiO2 07/19/25 10:16 97.7 75 16 117/72 95 97.7 X-Ray, Labs, Meds, VS Comment EXTERNAL MEDICAL RECORDS REVIEWED: [NONE] INDEPENDENT HISTORIANS: [NONE] SOCIAL DETERMINANTS OF HEALTH: [NONE] LABS ORDERED: NONE REVIEWED AND INTERPRETED RESULTS: NONE IMAGING ORDERED: NONE TREATMENTS ORDERED: THE PATIENT'S PREVIOUS SPLINT WAS REMOVED AND A NEW ANKLE STIRRUP SPLINT APPLIED TO PATIENT'S LEFT ANKLE. PROCEDURES PERFORMED: NONE CRITICAL CARE TIME: NONE I HAVE REVIEWED THE PATIENT'S PREVIOUS CHART, LABS, AND IMAGING FROM 2 DAYS AGO ALL OF WHICH WAS NORMAL. I HAVE DISCUSSED THE PATIENT WITH THE ATTENDING PHYSICIAN DR. EWING AND HE AGREES WITH THE PATIENT'S PLAN OF CARE AND DISPOSITION. BASED ON HISTORY OF PRESENT ILLNESS, AND PHYSICAL EXAM, PATIENT WILL BE DISCHARGED HOME. SHARED DECISION MAKING: PATIENT INSTRUCTED TO FOLLOW UP WITH PRIMARY CARE PROVIDER IN 1-2 DAYS FOR RE-EVALUATION OF SYMPTOMS. PATIENT VERBALIZES UNDERSTANDING TO RETURN TO ED FOR NEW OR WORSENING SYMPTOMS OR IF FOLLOW UP WITH PCP CANNOT BE OBTAINED. PATIENT FEELS COMFORTABLE GOING HOME AT THIS TIME. ALL QUESTIONS ADDRESSED AT TIME OF DISCHARGE. Time of 1ST Reevaluation: 11:02 Reevaluation 1ST: Improved Patient Education/Counseling: Diagnosis, Treatment, Need For Follow Up Family Education/Counseling: Diagnosis, Treatment, Need For Follow Up Medical Screening: No EMC Exist At This Time SEPSIS Sepsis Screen Date sepsis recognized/suspect: Jul 19, 2025 Time Sepsis recognized/suspect: 1019 Recent Procedure: No On Antibiotic Therapy: No Respiratory Rate >20: No Heart Rate >90: No Temp<36 C (96.8 F) or >38.3 C: No SBP <90 or MAP <65 mmHG: No New Acute Mental Status Change: No Is the patient on CPAP, BIPAP,: No Vital Signs Date Time Temp Pulse Resp B/P (MAP) Pulse Ox O2 Delivery O2 Flow Rate FiO2 07/19/25 10:16 97.7 75 16 117/72 95 97.7 Departure 1 Departure Time of Disposition: 11:02 Impression: Primary Impression: Encounter for cast care Additional Impression: History of fracture of left ankle Disposition: 01 HOME / SELF CARE / HOMELESS Condition: Stable Additional Instructions: FOLLOW-UP WITH PCP AND ORDER ANALYST IN 1 TO 2 DAYS. RETURN TO ED FOR ANY NEW OR WORSENING SYMPTOMS. Discharged With: Self, Relative Critical Care Note Critical Care Time?: No Stability Stability form required: No I personally scribed for DIANE CUEVAS ([email or web address]) on 07/19/25 at 10:55. Electronically submitted by Froylan Durant ([email or web address]). DIANE CUEVAS Jul 19, 2025 10:55
[2025-07-19 11:00] VITALS: BP 117/72; PULSE 75; RESP 16; TEMP 97.7; O2SAT 95
== END 2025-07-19 11:06 | disposition home or self-care (01) ==
LOC: ER 10:10
DX: M79.89 Other specified soft tissue disorders (principal); Z46.89 Encounter for fitting and adjustment of other specified devices; Z87.81 Personal history of (healed) traumatic fracture; F17.210 Nicotine dependence, cigarettes, uncomplicated; E11.9 Type 2 diabetes mellitus without complications; F41.9 Anxiety disorder, unspecified; I10 Essential (primary) hypertension; E78.5 Hyperlipidemia, unspecified; J45.909 Unspecified asthma, uncomplicated; I25.10 Atherosclerotic heart disease of native coronary artery without angina pectoris; Z79.899 Other long term (current) drug therapy; Z98.890 Other specified postprocedural states; Z88.6 Allergy status to analgesic agent; Z79.01 Long term (current) use of anticoagulants; Z79.02 Long term (current) use of antithrombotics/antiplatelets

== ENCOUNTER 2025-08-28 16:08 | Emergency (ER) | payer MEDICAID, OTHER ==
[~2025-08-28] VITALS: Ht 167.6 cm; Wt 129.6 kg
[2025-08-28 16:14] VITALS: TEMP 97.2
[2025-08-28 17:00] LABS: Hematocrit 37.9 % (41.0-53.0); Hemoglobin 12.8 g/dL (13.5-17.5); Mean Corpuscular Hemoglobin 30.1 pg (28.0-32.0); Mean Corpuscular Volume 89.3 fL (80.0-100.0); Nucleated Red Blood Cells % 0.0 %
[2025-08-28 17:16] LABS: Alanine Aminotransferase 10 U/L (7-40); Albumin 4.5 g/dL (3.2-4.8); Anion Gap 6 (5-15); BUN/Creatinine Ratio 13.2 (10.0-20.0); Bilirubin, Total 0.5 mg/dL (0.2-1.0); Blood Urea Nitrogen 10 mg/dL (9-23); Calcium 9.1 mg/dL (8.7-10.4); Carbon Dioxide 23 mmol/L (20-31); Potassium 3.9 mmol/L (3.5-5.1); Sodium 142 mmol/L (136-145); Total Protein 7.1 g/dL (5.7-8.2)
--- NOTE | 2025-08-28 17:19 | ED.PDOC ---
Musculoskeletal HPI Comments HPI: 70 year old male presents to the emergency department for chief complaint of left ankle wound check with drainage onset 3 days ago. Pt states that oozing fluid began draining 3 days ago. Pt had surgery done in June 2025 at [facility] and was visiting the ER to receive a checkup on wound due to progression of symptoms. Pt reports secondary complaint of a fall he had reaching for an object on his table, falling backwards and causing injury to his tailbone. Denies any other symptoms at this time. Denies chills, fever, N/V/D, SOB, CP. Denies any other associated symptom's, modifiers, or recent injuries or sick contact at this time. Initial Vitals BP: 134/82 HR: 70 RR:16 O2 Sat:94 Temp:97.2 Past Medical history: Diabetes Mellulitis, HTN, Past Surgical history: 2 hernia surgeries Medications: Metformin, unknown HTN medication Social History: Denies smoking, ETOH, and drug use. Allergies: Aspirin HPI: Poor Historian. dustin romano: wound check. L abve the ankle wound open with discharge. erythema, NV intact. wallace edeam 09/09 REVIEW OF SYSTEMS: CONSTITUTIONAL: Denies acute: fever, diaphoresis, chills, generalized weakness. HEAD: Denies acute: headache, photophobia Eyes: Denies acute: Double vision, vision loss, eye pain, eye discharge. EARS: Denies acute: tinnitus, hearing loss, ear discharge, ear pain, THROAT: Denies acute: sore throat, swelling, difficulty swallowing , pain with swallowing, change in voice. NECK: Denies acute: neck pain, neck swelling, stiff neck. HEART: Denies acute : chest pain, palpitations, LUNGS: Denies acute: SOB, wheezing, cough, hemoptysis ABDOMEN: Denies acute: abdominal pain, Nausea, Vomiting, diarrhea, melena , hematemesis, hematochezia SKIN: Denies acute: rash, itchiness. EXTREMITIES: Denies acute: calf pain, numbness, tingling, weakness, d Denies acute: Low back pain. Neuro: Denies acute: focal neurological deficit, motor or sensory focal neurological deficit, tremors, seizure like activity, confusion, dizziness, change in mental status, loss of bowel or bladder function, cauda equina like symptoms. : Denies acute: dysuria, hematuria, flank pain, increase in urinary frequency. PSYCH: Denies acute: hallucination, suicidal ideation, homicidal ideation. FEMALE: Denies acute: abnormal vaginal bleeding, foul odor, unusual discharge. PHYSICAL EXAM: General: -----no---acute distress, awake and alert. Head: normocephalic, atraumatic. No raccoon's eyes, no olvera sign. Neck: supple, trachea is midline, no swelling. Throat: Normal phonation. Eyes:, no erythema, no purulent discharge, no proptosis, no icterus. Heart: regular rate, regular rhythm, no significant murmur appreciated. Lungs: no apparent respiratory distress, Able to speak in full sentences. No wheezing, no rhonchi, no crackles. No stridors Clear to auscultation bilaterally. Abdomen: non tender to palpation, non distended, soft, no guarding, no rebound, + bowel sounds. obese Neuro: Awake, Alert, oriented to name, self, situation, follows commands GCS=15. Speech is normal. Skin: no petechia, no purpura, no cyanosis, non-pale, not jaundice. Lower extremities: --trace - Pitting edema no deformity, no focal swelling, no calf TTP. Noted above the left ankle wound surgical wound with one less than 1 cm opening with a minimal discharge. The area is not tender to palpation. Minimal erythema associated. Patient is neurovascularly intact in the affected extremity. Pedal pulses palpable. Sensory and motor are present. Makes eye contact. moves all four extremities. Face: no apparent facial droop. No CVA tenderness to percussion bilaterally. Ambulating in the ED independently. Ears: Normal appearing TM b/l, Stroke: finger to nose cerebellar testing is intact. No pronator drift. Symmetrical steward/stewardess night muscle strength b/l PERRLA, EOM-I CN 2-12 are grossly intact, Pedal pulses are palpable. No nystagmus. No nuchal rigidity, Kernig's sign, Brudzinski's sign, no meningeal signs. ED COURSE: DISCLAIMER: This medical document was created using an electronic medical record system with voice recognition software and computerized dictation system. Although this document has been carefully reviewed, there might still be some phonetic and typographical errors. Occasional wrong-word or "sound-alike" substitutions may h ave occurred due to the inherent limitations of voice recognition software. These areas are purely typographical due to imperfections of the software programs and do not reflect any compromise in the patient's medical care. Please read the chart carefully and recognize, using context, where these substitutions have occurred. Chief Complaint: Wound Check Time Seen by MD: 17:18 Primary Care Provider: VERA Reviewed Notes: Nurses Notes, Medications, Allergies Allergies: Coded Allergies: Aspirin (Verified Allergy, Severe, RASH, 06/03/20) Fish Allergy (Verified Allergy, Unknown, 08/03/21) Home Meds Active Scripts Tamsulosin Hcl (Tamsulosin Hcl) 0.4 Mg Cap, 0.4 MG PO DAILY for 30 Days, #30 CAP 0 Refills Prov:FAVIOLA CRYSTAL RESIDENT 12/07/24 Lactulose (Lactulose) 10 Gm/15 Ml Susanna, 10 GM PO DAILY for 30 Days, #450 ML 0 Refills Prov:FAVIOLA MCFARLANE [facility] 12/07/24 Ropinirole Hydrochloride (Ropinirole Hcl) 2 Mg Tab, 2 MG PO TID for 14 Days, #42 TAB 0 Refills Prov:FAVIOLA MCFARLANE [facility] 12/07/24 Ibuprofen Micronized (Ibuprofen) 800 Mg Tab, 800 MG PO Q8HP PRN, #30 TAB Prov:DANE CABALLERO PAC 05/19/23 Meclizine Hcl (Meclizine Hcl) 25 Mg Tab, 25 MG PO Q8HP PRN for 14 Days, #42 TAB Prov:ERLIN CLARK PAINT MIXER 03/26/23 Atorvastatin Calcium (Lipitor) 40 Mg Tab, 1 TAB PO QPM, #90 TAB 1 Refill Prov:CHEO LAI MD 02/24/23 Rivaroxaban (XARELTO) 10 Mg Tab, 0.25 TAB PO BID, #90 TAB Prov:CHEO LAI MD 02/24/23 Clopidogrel Bisulfate (Plavix) 75 Mg Tab, 1 TAB PO DAILY, #90 TAB 1 Refill Prov:CHEO LAI MD 02/24/23 Nifedipine (Nifedipine ER) 30 Mg Tab, 30 MG PO DAILY for 30 Days, #30 TAB Prov:YINA BUSTAMANTE Poornima PAINT MIXER 02/18/23 Acetaminophen (Acetaminophen) 500 Mg Tab, 500 MG PO QID, #30 TAB 0 Refills Prov:AIDA OBANDO 12/16/22 Famotidine (PEPCID TABLET) 20 Mg Tb, 1 TAB PO BID PRN, #30 TAB 5 Refills Prov:ACE GRIER MD 06/10/22 Ondansetron (Zofran) 4 Mg Tab, 4 MG PO TIDPRN PRN, #15 TAB Prov:ACE GRIER MD 06/10/22 Acetaminophen (Acetaminophen Extra Stren) 500 Mg Tab, 1000 MG PO Q6HP PRN, #30 TAB Prov:ACE GRIER MD 06/10/22 Reported Medications Albuterol Sulfate (Albuterol Sulfate Hfa) 108 Mcg/Act Aer, 2 INH Q4HPRN PRN 12/07/24 Hydroxyzine Hcl (Hydroxyzine Hcl) 10 Mg Tab, 10 MG PO HS for 30 Days, MG 02/28/22 Metformin Hydrochloride (Metformin Hcl) 500 Mg Tab, 500 MG PO IBID for 30 Days, MG 02/27/22 Trazodone HCl (Trazodone Hydrochloride) 50 Mg Tab, 1 TAB PO HS, TAB 06/28/20 Tiotropium [place] Monohydrate (Spiriva Handihaler) 18 Mcg Cap, 18 MCG IN, CAP 06/28/20 Gabapentin (Gabapentin) 100 Mg Cap, 3 CAP PO HS for 30 Days, MG 06/28/20 Omeprazole (Gnp Omeprazole) 20 Mg Tab, 1 TAB PO DAILY, #90 TAB 1 Refill 06/28/20 Information Source: Patient Mode of Arrival: Wheelchair Location: Left Timing: Days Prehospital treatment: None Past Medical History PAST MEDICAL HISTORY: Anxiety, Asthma, CAD, DM, High Lipids, HTN Surgical History: Hernia Repair Family History Family History: Reviewed,noncontributory to illness Social History Smoker: Cigarettes, Less Than 1 Pack/Day Alcohol: Denies ETOH Use Drugs: Denies Drug Use Lives In: Home Was a procedure done? Was a procedure done?: No X-Ray, Labs, Meds, VS Vital Signs Date Time Temp Pulse Resp B/P (MAP) Pulse Ox O2 Delivery O2 Flow Rate FiO2 08/28/25 16:14 97.2 70 16 134/82 94 97.2 Lab Test 08/28/25 16:41 Range/Units White Blood Count 6.2 4.4-10.8 10^3/uL Red Blood Count 4.24 L 4.5-5.90 10^6/uL Hemoglobin 12.8 L 13.5-17.5 g/dL Hematocrit 37.9 L 41.0-53.0 % Mean Corpuscular Volume 89.3 80.0-100.0 fL Mean Corpuscular Hemoglobin 30.1 28.0-32.0 pg Mean Corpuscular Hemoglobin Concent 33.7 32.0-36.0 g/dL Red Cell Distribution Width 15.2 H 11.8-14.3 % Platelet Count 171 140-450 10^3/uL Mean Platelet Volume 7.9 6.9-10.8 fL Neutrophils (%) (Auto) 72.7 37.0-80.0 % Lymphocytes (%) (Auto) 17.5 10.0-50.0 % Monocytes (%) (Auto) 7.0 0.0-12.0 % Eosinophils (%) (Auto) 2.2 0.0-7.0 % Basophils (%) (Auto) 0.6 0.0-2.0 % Neutrophils # (Auto) 4.5 1.6-8.6 10 ^3/uL Lymphocytes # (Auto) 1.1 0.4-5.4 10 ^3/uL Monocytes # (Auto) 0.4 0-1.3 10 ^3/uL Eosinophils # (Auto) 0.1 0-0.8 10 ^3/uL Basophils # (Auto) 0 0-0.2 10 ^3/uL Nucleated Red Blood Cells 0.0 % Erythrocyte Sedimentation Rate 18 0-20 mm/hr Sodium Level 142 136-145 mmol/L Potassium Level 3.9 3.5-5.1 mmol/L Chloride Level 113 H 98-107 mmol/L Carbon Dioxide Level 23 20-31 mmol/L Anion Gap 6 5-15 Blood Urea Nitrogen 10 9-23 mg/dL Creatinine 0.76 0.700-1.30 mg/dL Glomerular Filtration Rate Calc 98 >90 mL/min BUN/Creatinine Ratio 13.2 10.0-20.0 Serum Glucose 107 H 74-106 mg/dL Lactic Acid Level 1.3 0.4-2.0 mmol/L Calcium Level 9.1 8.7-10.4 mg/dL Total Bilirubin 0.5 0.2-1.0 mg/dL Aspartate Amino Transferase (AST) 23 13-40 U/L Alanine Aminotransferase (ALT) 10 7-40 U/L Alkaline Phosphatase 147 H 46-116 U/L C-Reactive Protein High Sensitivity 0.28 <1.0 mg/dL Total Protein 7.1 5.7-8.2 g/dL Albumin 4.5 3.2-4.8 g/dL Time of 1ST Reevaluation: 17:48 Reevaluation 1ST: Unchanged Patient Education/Counseling: Diagnosis, Treatment Family Education/Counseling: No Family Present Departure 1 Departure Time of Disposition: 18:04 Impression: Primary Impression: Encounter for postoperative wound check Disposition: 01 HOME / SELF CARE / HOMELESS Condition: Stable Additional Instructions: Additional instructions: Please read all instructions provided in this packet carefully. You MUST follow-up with your primary care/family doctor in 1 to 2 days. If you are unable to see your primary care/family doctor, please return to our emergency room for re-assessment and re-evaluation in 1 to 2 days. Return to the emergency room here in our facility or to the nearest ER [facility] if your symptoms change or worsen. CONSULTATIONS: you MUST Follow-up for consultation as soon as possible with: -your orthopedic surgeon who operated on your ankle in 1-2 days. Please call for appointment. You MUST call the consultants office yourself to make an appointment. You may need to arrange that through your insurance and/or your primary/family doctor. If you are unable to see the systems security consultant in 1 to 2 days, you must return to our emergency room (or any other ER of your choice) for re-assessment and re- evaluation. Adequate fluid hydration. Although you have been discharged from the Emergency Department, this does not mean that you have a "clean bill of health". No definitive diagnosis for your symptoms has been made today. It is possible that you are in the process of developing a serious illness. This is why you must return to the ED without fail if any new or worsening symptoms develop. Continue wound care at home. e-Prescriptions Cephalexin Monohydrate (Cephalexin) 500 Mg Cap 500 MG PO Q8HR for 7 Days, #21 TAB Prov: JERI COOPER DO 08/28/25 Sulfamethoxazole W/Trimethopri (Bactrim Ds Tablet) 1 Tab Tb 1 TAB PO BID for 7 Days, #14 TAB Prov: JERI COOPER DO 08/28/25 Discharged With: Self Critical Care Note Critical Care Time?: No I personally scribed for JERI COOPER DO ([email or web address]) on 08/28/25 at 17:19. Electronically submitted by Nallely Dueñas ([email or web address]). JREI COOPER DO Aug 28, 2025 17:19
[2025-08-28 17:20] LABS: Alkaline Phosphatase 147 U/L (46-116); Chloride 113 mmol/L (98-107); Glucose 107 mg/dL (74-106)
[2025-08-28] MEDS ORDERED: CEPH500C PO (18:06)
[2025-08-28] MEDS ORDERED: BACDST PO (18:06)
[2025-08-28 18:22] VITALS: BP 122/70
[2025-08-28 18:23] VITALS: PULSE 70; RESP 16; O2SAT 95
== END 2025-08-28 18:24 | disposition home or self-care (01) ==
LOC: ER 16:08
DX: Z48.89 Encounter for other specified surgical aftercare (principal); F41.9 Anxiety disorder, unspecified; E11.9 Type 2 diabetes mellitus without complications; I25.10 Atherosclerotic heart disease of native coronary artery without angina pectoris; I10 Essential (primary) hypertension; F17.210 Nicotine dependence, cigarettes, uncomplicated; J45.909 Unspecified asthma, uncomplicated; Z88.6 Allergy status to analgesic agent; Z79.899 Other long term (current) drug therapy; Z98.890 Other specified postprocedural states
CPT/HCPCS: 36415; 80053; 83605; 85025; 85652; 86141; 87040